=== PATIENT | male | born 1960 | race Caucasian/White ===

== ENCOUNTER 2018-05-25 04:06 | Inpatient (IN) ==
[2018-05-25] MEDS ORDERED: Bisacodyl 10 MG Supp RECTAL PRN (06:52)
[2018-05-25] MEDS ORDERED: niCARdipine Inj 25 MG in Sodium Chlor 0.9% Inj 240 ML IV.CONT PRN (06:55)
[2018-05-25] MEDS ORDERED: Magnesium Sulfate Inj 2 GM in Sodium Chlor 0.9% Inj 96 ML IV.SIG PRN (07:07)
[2018-05-25] MEDS ORDERED: Potassium Chloride Liq 20 MEQ/15 ML UDC PO PRN ×2 (07:07)
[2018-05-25] MEDS ORDERED: Potassium Chlor 20 mEq Premix 20 MEQ/100 ML PIGGYBACK IV.SIG PRN ×2 (07:07)
[2018-05-25] MEDS ORDERED: Potassium Phosphate 500 MG Soluble Tablet PO PRN ×2 (07:07)
[2018-05-25] MEDS ORDERED: Potassium Phosphate Inj 30 MMOL in Sodium Chlor 0.9% Inj 250 ML IV.SIG PRN (07:07)
[2018-05-25] MEDS ORDERED: Sodium Phosphate Inj 30 MMOL in Sodium Chlor 0.9% Inj 250 ML IV.SIG PRN (07:07)
[2018-05-25] MEDS ORDERED: Magnesium Sulfate Inj 4 GM in Sodium Chlor 0.9% Inj 92 ML IV.SIG PRN (07:07)
[2018-05-25] MEDS ORDERED: Magnesium Oxide 400 MG Tablet PO PRN (07:07)
[2018-05-25] MEDS ORDERED: Potassium Chlor 40 mEq Premix 40 MEQ/100 ML PIGGYBACK IV.SIG PRN ×2 (07:07)
--- NOTE | 2018-05-25 07:08 | P.HPCC ---
History of Present Illness Service: Critical care Primary Care Physician: No Primary Care Physician Chief Complaint: ICH, left sided weakness History of Present Illness: Patient is a 57-year-old male with past medical history significant for hypertension, chronic Eliquis use for DVT, who presented to [facility] with 3-day history of generalized weakness altered mental status and left -sided weakness. Patient is somnolent and slightly confused cannot give detailed history. Further workup in the [facility] ED included CT head which showed that patient had a 5.5 x 4.4 cm right frontal intraparenchymal hematoma with intraventricular extension into the right frontal horn. There was blood in the lateral third and fourth ventricle with mass-effect on the right frontal lobe, 5 mm midline shift to the left. Additional 9 x 10 mm intraparenchymal hematoma in the left posterior frontal cortex. Neurosurgery at [facility] was contacted and Dr. Ramesh accepted the patient. Patient was transferred to [facility] where I evaluated him. Lab work at [facility] showed PTT 69.5, PT 14.8, INR 1.31. Patient takes Eliquis for DVT On my evaluation patient is lying on the bed slightly somnolent. But wakes up easily, he is AOx2. He has 4 out of 5 power on the left upper and lower extremity, has left facial droop. Otherwise patient is oriented to person and time. Stat neurosurgery consult ordered and I reviewed the films with Dr. Ramesh. I have also ordered 2500 unit of K Centra to reverse apixaban (per patient last dose was yesterday afternoon which is approximately 18 hours ago). Follow coags. CT of the head follow-up at 8 AM. Patient is very critical, at risk of acute neuro decompensation. Further recommendation for any surgical intervention versus medical management based on repeat imaging - Diagnosis (1) Intracerebral hemorrhage (2) Intraventricular hemorrhage (3) Coagulopathy (4) Chronic anticoagulation (5) HTN (hypertension) (6) Chronic deep vein thrombosis (DVT) Inpatient Certification: I certify that the inpatient services were ordered in accordance with Medicare regulations governing the order. This includes certification that hospital inpatient services are reasonable and necessary and in the case of services not specified as inpatient-only under 42 CFR 419.22(n), that they are appropriately provided as inpatient services in accordance to with the 2-midnight benchmark under 43 CFR 412.3(e) Estimated Total Length of Stay (Days): 7 Plans for Post Hospital Care: Not yet determined Review of Systems unobtainable due to mental condition PMFSH - Medical / Surgical Hx Neg / Unobtainable Medical Problems Denied: Unable to Obtain Surgical History: Unable to Obtain - Tobacco History Smoking Status: Current every day smoker Tobacco Type: Cigarettes - Alcohol History How Often Do You Have a Drink Containing Alcohol: Unable to Obtain - Substance Use History Substance History: Unable to Obtain Medications and Allergies Active Medications: Active Medications Al Hydroxide/Mg Hydroxide (Milk Of Magnesia Liq) 30 ml PO Q12H PRN PRN Reason: Mild Constipation Albuterol (Duoneb Neb (Prn)) 1 ampul NEB Q2HR NEB PRN PRN Reason: WHEEZING Bisacodyl (Dulcolax Supp) 10 mg RECTAL DAILY PRN PRN Reason: SEVERE CONSITIPATION Chlorhexidine Gluconate (Chlorhexidine 2% Cloth) 3 pack TOPICAL DAILY@0400 PRN PRN Reason: Extra cloth needed Stop: 05/31/18 03:59 Chlorhexidine Gluconate (Chlorhexidine 2% Cloth) 3 pack TOPICAL DAILY@0400 MELISSA Stop: 05/31/18 03:59 Hydralazine HCl (Apresoline Inj) 20 mg IV.PUSH Q4H PRN PRN Reason: sbp>150 Sodium Chloride (Ns Inj) 1,000 mls @ 84 mls/hr IV.CONT .[id number] MELISSA Nicardipine HCl 25 mg/ Sodium (Chloride) 250 mls @ 50 mls/hr IV.CONT TITRATE PRN; Protocol PRN Reason: Per Protocol Prothrombin Complex Concent ( Human) 2,500 unit/Miscellaneous Medication mls @ 0 mls/hr IV.SIG ONCE ONE Stop: 05/25/18 08:01 Levetiracetam 500 mg/ Sodium (Chloride) 105 mls @ 400 mls/hr IV.SIG Q12H MELISSA Lactulose (Lactulose Liq) 30 ml PO DAILY PRN PRN Reason: SEVERE CONSITIPATION Pantoprazole Sodium (Protonix Inj) 40 mg IV.PUSH DAILY MELISSA Senna/Docusate Sodium (Jocelyn-Colace) 1 tab PO BID MELISSA Sennosides (Senokot) 17.2 mg PO Q12H PRN PRN Reason: Moderate Constipation Sodium Chloride (Ns Flush) 2 ml IV.FLUSH BID MELISSA Sodium Chloride (Ns Flush) 2 ml IV.FLUSH PRN PRN PRN Reason: FLUSH AFTER USING IV ACCESS Allergies Allergy/AdvReac Type Severity Reaction Status Date / Time No Known Allergies Allergy Verified 05/25/18 06:51 Home Medications Medication Instructions Recorded Confirmed Type apixaban [Eliquis] 1 tab PO BID 05/25/18 05/25/18 History hydroxychloroquine 200 mg PO DAILY 05/25/18 05/25/18 History pantoprazole 1 tab PO DAILY 05/25/18 05/25/18 History Results - Labs CBC & Chem 7: 05/25/18 08:36 05/25/18 08:36 Exam Vital signs: Intake & Output 05/24/18 05/25/18 05/25/18 18:59 06:59 18:59 Weight 87.2 kg Other: Weight On Admission 87.2 kg Narrative: GEN: 57-year-old male lying in bed, GCS 14. Appears critically ill HEENT: Extraocular movements are grossly intact. Pupils are reactive. Oral cavity is dry. NECK: Supple. No JVD LUNGS: Air entry equal bilaterally no wheezes or crackles HEART: S1 and S2 normal, no murmurs. Blood pressure 140/85 ABDOMEN: Soft. Nontender EXTREMITIES: No pedal edema. NEUROLOGIC: Patient is oriented to person and somewhat to place. Somnolent but wakes up easily. GCS 14. Left hemiparesis present left facial droop. 4 out of 5 power in the left upper and lower extremity. Normal right upper and lower extremity Septic Shock Reassessment Septic shock perfusion: reassessment completed Caprini VTE Risk Assessment Caprini VTE Risk Assessment: Moderate/High Risk (score >= 2) VTE Pharmacological Exception Reason: Intracranial lesions Caprini Risk Assessment Model: Point Value = 1 Point Value = 2 Point Value = 3 Point Value = 5 Age 41-60 Minor surgery BMI > 25 kg/m2 Swollen legs Varicose veins or History of unexplained or recurrent spontaneous Oral contraceptives or hormone replacement Sepsis (< 1 month) Serious lung disease, including pneumonia (< 1 month) Abnormal pulmonary function Acute myocardial infarction Congestive heart failure (< 1 month) History of inflammatory bowel disease Medical patient at bed rest Age 61-74 Arthroscopic surgery Major open surgery (> 45 min) Laparoscopic surgery (> 45 min) Malignancy Confined to bed (> 72 hours) Immobilizing plaster cast Central venous access Age >= 75 History of VTE Family history of VTE Factor V Leiden Prothrombin [id number] Lupus anticoagulant Anticardiolipin antibodies Elevated serum homocysteine Heparin-induced thrombocytopenia Other congenital or acquired thrombophilia Stroke (< 1 month) Elective arthroplasty Hip, pelvis, or leg fracture Acute spinal cord injury (< 1 month) Prophylaxis Regimen: Total Risk Factor Score Risk Level Prophylaxis Regimen 0-1 Low Early ambulation 2 Moderate Order ONE of the following: *Sequential Compression Device (SCD) *Heparin 5000 units SQ BID 3-4 Higher Order ONE of the following medications: *Heparin 5000 units SQ TID *Enoxaparin/Lovenox 40 mg SQ daily (WT < 150 kg, CrCl > 30 mL/min) *Enoxaparin/Lovenox 30 mg SQ daily (WT < 150 kg, CrCl > 10-29 mL/min) *Enoxaparin/Lovenox 30 mg SQ BID (WT < 150 kg, CrCl > 30 mL/min) AND/OR *Sequential Compression Device (SCD) 5 or more Highest Order ONE of the following medications: *Heparin 5000 units SQ TID (Preferred with Epidurals) *Enoxaparin/Lovenox 40 mg SQ daily (WT < 150 kg, CrCl > 30 mL/min) *Enoxaparin/Lovenox 30 mg SQ daily (WT < 150 kg, CrCl > 10-29 mL/min) *Enoxaparin/Lovenox 30 mg SQ BID (WT < 150 kg, CrCl > 30 mL/min) AND *Sequential Compression Device (SCD) Assessment and Plan - Problem List (1) Intracerebral hemorrhage Code(s): I61.9 - Nontraumatic intracerebral hemorrhage, unspecified Status: Acute (2) Intraventricular hemorrhage Code(s): I61.5 - Nontraumatic intracerebral hemorrhage, intraventricular Status: Acute (3) Coagulopathy Code(s): D68.9 - Coagulation defect, unspecified Status: Acute (4) Chronic anticoagulation Code(s): Z79.01 - auctioneer automobile (current) use of anticoagulants Status: Acute (5) HTN (hypertension) Code(s): I10 - Essential (primary) hypertension Status: Chronic (6) Chronic deep vein thrombosis (DVT) Code(s): I82.509 - Chronic embolism and thrombosis of unspecified deep veins of unspecified lower extremity Status: Chronic - Assessment and Plan Plan: NEURO: Large right frontal intraparenchymal hematoma with intraventricular extension Mass-effect on the right frontal lobe, 5 mm midline shift to the left. Encephalopathy -Stat K-centra 2500 units x1 -Follow-up CT of the head at 8 AM -Keep sodium more than 145, use 2% saline if needed -Avoid sedation -Keppra 500 mg IV every 12 for seizure prophylaxis -Discussed extensively with Dr. Ramesh -Further recommendations based on CT scan RESP: -DuoNeb every 2 hours as needed -Aggressive pulmonary toilet CV: History of hypertension -Normal saline IV fluids 84 ml per hour -Cardene infusion to keep blood pressure less than 140/90, IV hydralazine as needed GI: -N.p.o., IV Protonix : -Monitor renal function closely. ID: -No antibiotics at this time HEME: Chronic anticoagulation with apixaban History of DVT -Monitor CBC, coags, fibrinogen -K Centra 2500 units x1 stat -Follow-up coags at 12 PM ENDO: -Electrolyte replacement per protocol -Sliding scale insulin if needed PROPH: -Bilateral lower extremity SCDs/WILLIAN. Chemical DVT prophylaxis is contraindicated. IV Protonix LINES: -Utilize peripheral IVs, central line if needed CC time 78 min Patient is a very critical with large intraparenchymal hemorrhage and intraventricular extension. He is at acute risk of respiratory neuro decompensation. He may need endotracheal intubation and emergency surgical prevention. Continue close neuro monitoring Code Status: Full Discussed Condition With: Dr. Ramesh
[2018-05-25] MEDS: Prothrombin Complex Conc Inj 2,500 UNIT in Syringe/Bag 1 EACH IV.SIG ONE ×2 (07:30→08:21)
[2018-05-25 07:36] LABS: ABG Base Excess 1.2 mmol/L (-2-2); ABG PCO2 36 mmHg (38-42); ABG PO2 86 mmHg (61-120)
--- NOTE | 2018-05-25 08:11 | XR ---
EXAM DATE: 05/25/2018 8:09 AM EST AGE/SEX: 57 years / Male INDICATIONS: Short of breath. Evaluate respiratory disease. CLINICAL DATA: This is the patient's initial encounter. Patient reports that signs and symptoms have been present for 1 day and indicates a pain score of Nonresponsive. MEDICAL/SURGICAL HISTORY: Non-responsive. intracranial bleed Non-responsive. COMPARISON: No prior exams available for comparison. FINDINGS: Mild diffuse interstitial prominence. No focal pleural or parenchymal opacities. The cardiomediastin al contours are unremarkable. Osseous structures are intact. CONCLUSION: 1. Mild interstitial prominence of unknown chronicity given lack of prior exams. Differential consid erations include interstitial edema. Electronically signed by: Earnest Wilder MD Board Certified Radiologist 05/25/2018 8:10 AM EST
--- NOTE | 2018-05-25 08:17 | CT ---
EXAM DATE: 05/25/2018 8:09 AM EST AGE/SEX: 57 years / Male INDICATIONS: Intracerebral hemorrhage, transfer from [facility]. CLINICAL DATA: This is the patient's initial encounter. Patient reports that signs and symptoms have been present for 1 day and indicates a pain score of 0/10. MEDICAL/SURGICAL HISTORY: Hypertension. Deep venous thrombosis. None. RADIATION DOSE: 36.05 CTDI (mGy) COMPARISON: No prior exams available for comparison. TECHNIQUE: CT of the head without contrast. Using automated exposure control and adjustment of the mA and/or kV according to patient size, radiation dose was kept as low as reasonably achievable to ob tain optimal diagnostic quality images. DICOM format image data is available electronically for revi ew and comparison. FINDINGS: Cerebrum: There is a large right frontoparietal mid to high convexity intraparenchymal hemorrhage me asuring approximately 4.3 x 4.6 cm with surrounding vasogenic edema. Blood products extend to the lat eral ventricles bilaterally. There is approximately 4 mm right to left subfalcine shift. There is a s econd small 8 mm intraparenchymal hematoma in the left parietal high convexities. Minimal associated surrounding vasogenic edema. Ventricles are borderline in size. Castro-white matter differentiation is maintained. Basilar cisterns are intact with blood products noted. Posterior Fossa: The cerebellum and brainstem are intact. The 4th ventricle is midline. The cerebe llopontine angle is unremarkable. Extracranial: The visualized portion of the orbits is intact. Skull: The calvaria is intact. No evidence of skull fracture. CONCLUSION: 1. Large right frontoparietal mid thigh convexity intraparenchymal hematoma measuring 4.3 x 4.6 cm w ith blood products extending to the ventricles. 4 mm right to left subfalcine shift. Ventricles are b orderline in size. 2. 8 mm intraparenchymal hematoma in the left parietal high convexities with mild surrounding vasoge renny edema but no significant mass effect at this time. . . Electronically signed by: Earnest Wilder MD Board Certified Radiologist 05/25/2018 8:15 AM EST
[2018-05-25] MEDS: Sod Chloride 0.9% Inj 1,000 ML IV.CONT SCH ×2 (08:21→21:58)
[2018-05-25] MEDS: Senna/Docusate Sodium 8.6/50 MG Tablet PO SCH ×2 (08:25→23:39)
[2018-05-25] MEDS: Pantoprazole Inj 40 MG Vial IV.PUSH SCH (08:29)
[2018-05-25 08:53] LABS: Hematocrit 35.7 % (39.0-51.0); Hemoglobin 12.9 gm/dL (13.0-17.0); Mean Corpuscular Hemoglobin 32.3 pg (27.0-34.0); Mean Corpuscular Volume 89.5 fL (80.0-100.0); Mean Platelet Volume 7.4 fL (7.0-11.0); Platelet Count 177 th/mm3 (150-450); Red Blood Count 3.99 mil/mm3 (4.50-5.90); Red Cell Distribution Width 12.8 % (11.6-17.2); White Blood Count 5.9 th/mm3 (4.0-11.0)
[2018-05-25 08:57] LABS: Mean Corpuscular HGB Conc 36.1 % (32.0-36.0)
[2018-05-25 09:02] LABS: INR 1.1 Ratio; Prothrombin Time 10.8 sec (9.8-11.6)
[2018-05-25 09:15] LABS: Albumin 2.9 g/dL (3.4-5.0); Anion Gap 9 meq/L (5-15); Aspartate Aminotransferase 17 U/L (15-37); Blood Urea Nitrogen 16 mg/dL (7-18); Calcium 8.9 mg/dL (8.5-10.1); Carbon Dioxide 24.4 meq/L (21.0-32.0); Chloride 99 meq/L (98-107); Glomerular Filtration Rate 78 mL/min (>89); Glucose,Random 104 mg/dL (74-106); Potassium 4.1 meq/L (3.5-5.1); Sodium 132 meq/L (136-145)
[2018-05-25 09:16] LABS: Alanine Aminotransferase 21 U/L (12-78)
[2018-05-25 09:18] LABS: Alkaline Phosphatase 105 U/L (45-117); Total Protein 8.3 g/dL (6.4-8.2)
[2018-05-25] MEDS ORDERED: Sodium Chloride 23.4% Inj 188 MEQ in Sod Chloride 0.9% Inj 1,000 ML IV.CONT SCH (10:00)
[2018-05-25] MEDS: Sodium Chloride 23.4% Inj 188 MEQ in Sod Chloride 0.9% Inj 1,000 ML IV.CONT SCH (11:30)
--- NOTE | 2018-05-25 17:11 | MB ---
cc: Richard Ramesh MD DATE: 05/25/2018 Report of an initial comprehensive inpatient surgical intensive care and neurosurgical consultation. The patient was interviewed, examined, the documentation, laboratory evaluation, and the imaging were reviewed. CHIEF COMPLAINT: Intracerebral hemorrhage. HISTORY OF PRESENT ILLNESS: This is a 57-year-old white male who apparently presented to [facility] with a 3-day history of generalized weakness, confusion, and left-sided weakness. CT scan of the head done without contrast there revealed what appears to be a spontaneous right frontal intracerebral hemorrhage with intraventricular extension. There was no hydrocephalus. There was mild shift of the midline. There also was a small hemorrhage within the left posterior frontal lobe. Apparently, this patient is on Eliquis for a recurrent deep venous thrombosis. PAST MEDICAL HISTORY: Apparently remarkable for history of hypertension and recurrent deep venous thrombosis. PAST SURGICAL HISTORY: Unobtainable due to the patient's clinical condition. HOME MEDICATIONS: Not listed except for: 1. Hydroxychloroquine. 2. Pantoprazole. 3. Apixaban or Eliquis. ALLERGIES: HE HAS NO KNOWN DRUG ALLERGIES. SOCIAL HISTORY: Unobtainable due the patient's clinical condition. REVIEW OF SYSTEMS: Unobtainable due the patient's clinical condition. PHYSICAL EXAMINATION: VITAL SIGNS: His temperature is 98, his heart rate is 64. His respiratory rate is 17. His SPO2 was 99% on room air. His blood pressure is 142/90. NEUROLOGIC: Mental Status testing finds the patient to be somewhat lethargic but easily arousable. He opens his eyes. He follows commands. He is somewhat confused. His speech is fluent. Cranial nerve testing 2-12 are grossly intact with a right gaze preference. Visual karimi appeared to be full to confrontation. Extraocular movements were full without diplopia or nystagmus. Funduscopic examination was deferred due to small pupils. Motor examination was remarkable for what appeared to be some increased tone in the right upper and right lower extremity with a mild right hemiparesis. Sensory examination was intact to light touch and position. Deep tendon reflexes were 2+ in the left and 3+ on the right. There were no pathological reflexes noted. Cerebellar, gait, Romberg and tandem cannot be tested. HEENT: Head was normocephalic. External auditory canals were clear. There was no Paul sign, no raccoon eyes. No mastoid tenderness. There was no blood within external auditory canals or sign of CSF otorrhea or rhinorrhea. SPINE: Cervical spine evaluation revealed limited range of motion with some mild torticollis to the right. IMPRESSION: My impression is that the patient has suffered what appears to be a spontaneous intracerebral hemorrhage. In fact, he has multiple intracerebral hemorrhages with intraventricular hemorrhage without hydrocephalus. Neurologically, the patient has remained stable and remains responsive. RECOMMENDATIONS AND PLAN: At this point, certainly a conservative neurosurgical approach is warranted. Depending on results of workup as well as his clinical course, we will determine the appropriate further diagnostic and therapeutic approach. Neurosurgery will follow. I discussed the case with Dr. Collins, the veterinary manager, at length. In any case, thank you for allowing me to participate in the care of this patient. It also should be noted that we plan on pursuing serial imaging. MD NOAH Carter/mulugeta , 04:41 PM , 04:55 PM
[2018-05-25 20:11] LABS: INR 1.1 Ratio; Prothrombin Time 11.1 sec (9.8-11.6)
[2018-05-26] MEDS ORDERED: Chlorhexidine Gluconate 2% 1 Pack (2 Cloths) TOPICAL PRN (04:00)
--- NOTE | 2018-05-26 08:36 | P.PNCC ---
Subjective Subjective Remarks/Hospital Course: Patient is a 57-year-old male with past medical history significant for hypertension, chronic Eliquis use for DVT, who presented to [facility] with 3-day history of generalized weakness altered mental status and left -sided weakness. Patient is somnolent and slightly confused cannot give detailed history. Further workup in the [facility] ED included CT head which showed that patient had a 5.5 x 4.4 cm right frontal intraparenchymal hematoma with intraventricular extension into the right frontal horn. There was blood in the lateral third and fourth ventricle with mass-effect on the right frontal lobe, 5 mm midline shift to the left. Additional 9 x 10 mm intraparenchymal hematoma in the left posterior frontal cortex. Neurosurgery at [place] was contacted and Dr. Ramesh accepted the patient. Patient was transferred to [facility] where I evaluated him. Lab work at [facility] showed PTT 69.5, PT 14.8, INR 1.31. Patient takes Eliquis for DVT On my evaluation patient is lying on the bed slightly somnolent. But wakes up easily, he is AOx2. He has 4 out of 5 power on the left upper and lower extremity, has left facial droop. Otherwise patient is oriented to person and time. Stat neurosurgery consult ordered and I reviewed the films with Dr. Ramesh. I have also ordered 2500 unit of K Centra to reverse apixaban (per patient last dose was yesterday afternoon which is approximately 18 hours ago). Follow coags. CT of the head follow-up at 8 AM. Patient is very critical, at risk of acute neuro decompensation. Further recommendation for any surgical intervention versus medical management based on repeat imaging 05/26/18: Patient lying in bed opens eyes follows commands. Neuro exam remains unchanged. No surgical intervention is planned at this time. Will get PT OT and speech eval Objective Vital Signs / I&O: Vital Signs 05/25/18 10:07 05/25/18 10:30 05/25/18 11:00 Temperature Pulse Rate 69 65 61 Respiratory Rate 18 16 14 Blood Pressure 144/89 H 148/90 H 147/85 H Pulse Oximetry 98 98 100 05/25/18 11:30 05/25/18 12:00 05/25/18 12:30 Temperature 98.1 F Pulse Rate 63 66 72 Respiratory Rate 18 13 Blood Pressure 141/87 H 146/91 H 146/86 H Pulse Oximetry 100 100 100 05/25/18 13:00 05/25/18 13:30 05/25/18 14:00 Temperature Pulse Rate 65 62 65 Respiratory Rate 13 8 L 16 Blood Pressure 152/87 H 159/88 H 152/89 H Pulse Oximetry 100 99 100 05/25/18 14:30 05/25/18 15:00 05/25/18 15:30 Temperature Pulse Rate 66 69 63 Respiratory Rate 17 17 15 Blood Pressure 142/90 H 154/90 H 160/94 H Pulse Oximetry 99 96 100 05/25/18 16:00 05/25/18 16:30 05/25/18 17:00 Temperature 98.7 F Pulse Rate 75 68 69 Respiratory Rate 14 20 17 Blood Pressure 144/97 H 155/87 H 150/90 H Pulse Oximetry 100 100 100 05/25/18 17:30 05/25/18 18:00 05/25/18 18:30 Temperature Pulse Rate 61 62 67 Respiratory Rate 14 15 18 Blood Pressure 152/83 H 144/85 H 149/89 H Pulse Oximetry 100 100 100 05/25/18 19:00 05/25/18 19:30 05/25/18 20:00 Temperature 98.0 F Pulse Rate 72 66 67 Respiratory Rate 18 19 18 Blood Pressure 154/85 H 153/88 H 157/84 H Pulse Oximetry 100 100 100 05/25/18 20:30 05/25/18 21:00 05/25/18 21:08 Temperature Pulse Rate 67 62 59 L Respiratory Rate 22 16 16 Blood Pressure 166/87 H 154/87 H Pulse Oximetry 100 100 100 05/25/18 22:00 05/25/18 23:00 05/25/18 23:02 Temperature Pulse Rate 64 64 65 Respiratory Rate 23 15 16 Blood Pressure 157/90 H 146/109 H 154/105 H Pulse Oximetry 100 100 100 05/25/18 23:24 05/26/18 00:00 05/26/18 01:00 Temperature 98.2 F Pulse Rate 66 58 L 63 Respiratory Rate 14 14 14 Blood Pressure 144/77 H 153/87 H 154/84 H Pulse Oximetry 100 100 100 05/26/18 02:00 05/26/18 03:00 05/26/18 04:00 Temperature 98.2 F Pulse Rate 63 57 L 67 Respiratory Rate 18 21 15 Blood Pressure 167/91 H 141/71 H 163/92 H Pulse Oximetry 100 100 100 05/26/18 05:00 05/26/18 06:00 05/26/18 06:49 Temperature Pulse Rate 61 57 L 71 Respiratory Rate 13 15 20 Blood Pressure 138/66 163/95 H 144/85 H Pulse Oximetry 100 100 99 05/26/18 07:00 Temperature Pulse Rate 64 Respiratory Rate 19 Blood Pressure 168/91 H Pulse Oximetry 100 Intake & Output 05/25/18 05/26/18 05/26/18 18:59 06:59 18:59 Intake Total 105 / 105 1105 / 1105 Output Total 1275 / 1275 1000 / 1000 Balance -1170 / -1170 105 / 105 Weight 83.9 kg Intake: IV 105 / 105 1105 / 1105 NS Inj 1,000 ML @ 84 mls/hr IV. 1000 / 1000 CONT .[id number] MELISSA Rx#:[id number] Keppra Inj 500 MG In NS Inj 100 105 / 105 105 / 105 ML @ 400 mls/hr IV.SIG Q12H MELISSA Rx#:[id number] Oral 0 / 0 Output: Urine 1275 / 1275 1000 / 1000 Other: # Bowel Movements 0 Result Diagrams: 05/25/18 08:36 05/26/18 01:09 Objective Remarks: GEN: 57-year-old male lying in bed, GCS 14. Appears critical HEENT: Extraocular movements are grossly intact. Pupils are reactive. Oral cavity is dry. NECK: Supple. No JVD LUNGS: Air entry equal bilaterally no wheezes or crackles HEART: S1 and S2 normal, no murmurs. Blood pressure 150/85 ABDOMEN: Soft. Nontender EXTREMITIES: No pedal edema. NEUROLOGIC: Patient is oriented to person and place. Somnolent but wakes up easily. GCS 14. Left hemiparesis present left facial droop. 4 out of 5 power in the left upper and lower extremity. Normal right upper and lower extremity Assessment and Plan - Problem List (1) Intracerebral hemorrhage Code(s): I61.9 - Nontraumatic intracerebral hemorrhage, unspecified Status: Acute (2) Intraventricular hemorrhage Code(s): I61.5 - Nontraumatic intracerebral hemorrhage, intraventricular Status: Acute (3) Coagulopathy Code(s): D68.9 - Coagulation defect, unspecified Status: Acute (4) Chronic anticoagulation Code(s): Z79.01 - FDC (current) use of anticoagulants Status: Acute (5) HTN (hypertension) Code(s): I10 - Essential (primary) hypertension Status: Chronic (6) Chronic deep vein thrombosis (DVT) Code(s): I82.509 - Chronic embolism and thrombosis of unspecified deep veins of unspecified lower extremity Status: Chronic - Assessment and Plan Plan: NEURO: Large right frontal intraparenchymal hematoma with intraventricular extension Mass-effect on the right frontal lobe, 5 mm midline shift to the left. Encephalopathy -S/p K-centra 2500 units x1 -Follow-up CT of the head 05/25, remained stable -Keep sodium more than 145, use 2% saline -Avoid sedation -Keppra 500 mg IV every 12 for seizure prophylaxis -Discussed with Dr. Ramesh-no surgical interventions are planned at this time -PT/OT/speech eval -Out of bed RESP: -DuoNeb every 2 hours as needed -Aggressive pulmonary toilet CV: History of hypertension -Normal saline IV fluids 84 ml per hour -Cardene infusion to keep blood pressure less than 140/90, IV hydralazine as needed -Start amlodipine 5 mg daily if cleared by speech GI: -N.p.o., IV Protonix -Speech consult for swallow eval : -Monitor renal function closely. ID: -No antibiotics at this time HEME: Chronic anticoagulation with apixaban History of DVT -Monitor CBC, coags, fibrinogen -K Centra 2500 units x1 stat -Follow-up coags at 12 PM ENDO: -Electrolyte replacement per protocol -Sliding scale insulin if needed PROPH: -Bilateral lower extremity SCDs/WILLIAN. Chemical DVT prophylaxis is contraindicated. IV Protonix LINES: -Utilize peripheral IVs, central line if needed CC time 35 min Patient is a very critical with large intraparenchymal hemorrhage and intraventricular extension. He is at acute risk of respiratory neuro decompensation. He may need endotracheal intubation and emergency surgical intervention/EVD. Continue close neuro monitoring Code Status: Full
[2018-05-26] MEDS: Pantoprazole Inj 40 MG Vial IV.PUSH SCH (09:33)
[2018-05-26] MEDS: hydrALAZINE HCl Inj 20 MG/ML Vial IV.PUSH PRN ×2 (09:33→18:39)
[2018-05-26] MEDS: Sod Chloride 0.9% Inj 1,000 ML IV.CONT SCH ×2 (09:34→18:15)
[2018-05-26] MEDS: Senna/Docusate Sodium 8.6/50 MG Tablet PO SCH ×2 (09:34→22:29)
--- NOTE | 2018-05-26 10:09 | P.PNNS ---
Subjective Interval history: no significant neurological changes overnight <Karine Valero - Last Filed: 05/26/18 11:30> Physical Exam Vital signs: Vital Signs 05/25/18 10:07 05/25/18 10:30 05/25/18 11:00 Temperature Pulse Rate 69 65 61 Respiratory Rate 18 16 14 Blood Pressure 144/89 H 148/90 H 147/85 H Pulse Oximetry 98 98 100 05/25/18 11:30 05/25/18 12:00 05/25/18 12:30 Temperature 98.1 F Pulse Rate 63 66 72 Respiratory Rate 18 13 Blood Pressure 141/87 H 146/91 H 146/86 H Pulse Oximetry 100 100 100 05/25/18 13:00 05/25/18 13:30 05/25/18 14:00 Temperature Pulse Rate 65 62 65 Respiratory Rate 13 8 L 16 Blood Pressure 152/87 H 159/88 H 152/89 H Pulse Oximetry 100 99 100 05/25/18 14:30 05/25/18 15:00 05/25/18 15:30 Temperature Pulse Rate 66 69 63 Respiratory Rate 17 17 15 Blood Pressure 142/90 H 154/90 H 160/94 H Pulse Oximetry 99 96 100 05/25/18 16:00 05/25/18 16:30 05/25/18 17:00 Temperature 98.7 F Pulse Rate 75 68 69 Respiratory Rate 14 20 17 Blood Pressure 144/97 H 155/87 H 150/90 H Pulse Oximetry 100 100 100 05/25/18 17:30 05/25/18 18:00 05/25/18 18:30 Temperature Pulse Rate 61 62 67 Respiratory Rate 14 15 18 Blood Pressure 152/83 H 144/85 H 149/89 H Pulse Oximetry 100 100 100 05/25/18 19:00 05/25/18 19:30 05/25/18 20:00 Temperature 98.0 F Pulse Rate 72 66 67 Respiratory Rate 18 19 18 Blood Pressure 154/85 H 153/88 H 157/84 H Pulse Oximetry 100 100 100 05/25/18 20:30 05/25/18 21:00 05/25/18 21:08 Temperature Pulse Rate 67 62 59 L Respiratory Rate 22 16 16 Blood Pressure 166/87 H 154/87 H Pulse Oximetry 100 100 100 05/25/18 22:00 05/25/18 23:00 05/25/18 23:02 Temperature Pulse Rate 64 64 65 Respiratory Rate 23 15 16 Blood Pressure 157/90 H 146/109 H 154/105 H Pulse Oximetry 100 100 100 05/25/18 23:24 05/26/18 00:00 05/26/18 01:00 Temperature 98.2 F Pulse Rate 66 58 L 63 Respiratory Rate 14 14 14 Blood Pressure 144/77 H 153/87 H 154/84 H Pulse Oximetry 100 100 100 05/26/18 02:00 05/26/18 03:00 05/26/18 04:00 Temperature 98.2 F Pulse Rate 63 57 L 67 Respiratory Rate 18 21 15 Blood Pressure 167/91 H 141/71 H 163/92 H Pulse Oximetry 100 100 100 05/26/18 05:00 05/26/18 06:00 05/26/18 06:49 Temperature Pulse Rate 61 57 L 71 Respiratory Rate 13 15 20 Blood Pressure 138/66 163/95 H 144/85 H Pulse Oximetry 100 100 99 05/26/18 07:00 Temperature Pulse Rate 64 Respiratory Rate 19 Blood Pressure 168/91 H Pulse Oximetry 100 Intake & Output 05/25/18 05/26/18 05/26/18 18:59 06:59 18:59 Intake Total 105 / 105 1105 / 1105 1000 / 1000 Output Total 1275 / 1275 1000 / 1000 Balance -1170 / -1170 105 / 105 1000 / 1000 Weight 83.9 kg Intake: IV 105 / 105 1105 / 1105 1000 / 1000 NS Inj 1,000 ML @ 84 mls/hr IV. 1000 / 1000 1000 / 1000 CONT .[id number] MELISSA Rx#:[id number] Keppra Inj 500 MG In NS Inj 100 105 / 105 105 / 105 ML @ 400 mls/hr IV.SIG Q12H MELISSA Rx#:[id number] Oral 0 / 0 Output: Urine 1275 / 1275 1000 / 1000 Other: # Bowel Movements 0 Narrative: mildly lethargic but arousable. He opens his eyes. He follows commands. he is oriented to name, year pupils equal Motor: moves all four extremities to command with left hemiparesis <Karine Valero - Last Filed: 05/26/18 11:30> Vital signs: Vital Signs 05/25/18 18:00 05/25/18 18:30 05/25/18 19:00 Temperature Pulse Rate 62 67 72 Respiratory Rate 15 18 18 Blood Pressure 144/85 H 149/89 H 154/85 H Pulse Oximetry 100 100 100 05/25/18 19:30 05/25/18 20:00 05/25/18 20:30 Temperature 98.0 F Pulse Rate 66 67 67 Respiratory Rate 19 18 22 Blood Pressure 153/88 H 157/84 H 166/87 H Pulse Oximetry 100 100 100 05/25/18 21:00 05/25/18 21:08 05/25/18 22:00 Temperature Pulse Rate 62 59 L 64 Respiratory Rate 16 16 23 Blood Pressure 154/87 H 157/90 H Pulse Oximetry 100 100 100 05/25/18 23:00 05/25/18 23:02 05/25/18 23:24 Temperature Pulse Rate 64 65 66 Respiratory Rate 15 16 14 Blood Pressure 146/109 H 154/105 H 144/77 H Pulse Oximetry 100 100 100 05/26/18 00:00 05/26/18 01:00 05/26/18 02:00 Temperature 98.2 F Pulse Rate 58 L 63 63 Respiratory Rate 14 14 18 Blood Pressure 153/87 H 154/84 H 167/91 H Pulse Oximetry 100 100 100 05/26/18 03:00 05/26/18 04:00 05/26/18 05:00 Temperature 98.2 F Pulse Rate 57 L 67 61 Respiratory Rate 21 15 13 Blood Pressure 141/71 H 163/92 H 138/66 Pulse Oximetry 100 100 100 05/26/18 06:00 05/26/18 06:49 05/26/18 07:00 Temperature Pulse Rate 57 L 71 64 Respiratory Rate 15 20 19 Blood Pressure 163/95 H 144/85 H 168/91 H Pulse Oximetry 100 99 100 05/26/18 08:00 05/26/18 09:00 05/26/18 10:00 Temperature 98.5 F Pulse Rate 55 L 63 85 Respiratory Rate 15 17 11 L Blood Pressure 160/86 H 160/94 H 146/74 H Pulse Oximetry 100 100 83 L 05/26/18 11:00 05/26/18 12:00 05/26/18 12:01 Temperature Pulse Rate 77 68 81 Respiratory Rate 20 16 Blood Pressure 156/86 H 163/90 H Pulse Oximetry 100 98 05/26/18 13:01 05/26/18 14:00 05/26/18 15:00 Temperature Pulse Rate 76 69 70 Respiratory Rate 13 17 17 Blood Pressure 164/96 H 156/86 H 152/88 H Pulse Oximetry 99 96 99 05/26/18 16:00 Temperature 99.1 F Pulse Rate 69 Respiratory Rate 23 Blood Pressure 159/84 H Pulse Oximetry 100 Intake & Output 05/25/18 05/26/18 05/26/18 18:59 06:59 18:59 Intake Total 255 / 255 1105 / 1105 1105 / 1105 Output Total 1275 / 1275 1000 / 1000 Balance -1020 / -1020 105 / 105 1105 / 1105 Weight 83.9 kg Intake: IV 255 / 255 1105 / 1105 1105 / 1105 NS Inj 1,000 ML @ 84 mls/hr IV. 1000 / 1000 1000 / 1000 CONT .[id number] MELISSA Rx#:[id number] Keppra Inj 500 MG In NS Inj 100 105 / 105 105 / 105 105 / 105 ML @ 400 mls/hr IV.SIG Q12H MELISSA Rx#:[id number] Oral 0 / 0 Output: Urine 1275 / 1275 1000 / 1000 Other: # Bowel Movements 0 <Richard Ramesh - Last Filed: 05/26/18 17:48> Assessment and Plan - Plan 57 y/o male spontaneous intracerebral hemorrhage, multiple intracerebral hemorrhages with intraventricular hemorrhage without hydrocephalus RECOMMENDATIONS AND PLAN: At this point, certainly a conservative neurosurgical approach is warranted. Depending on results of workup as well as his clinical course, we will determine the appropriate further diagnostic and therapeutic approach. Neurosurgery will follow. I discussed the case with Dr. Collins, the brake repair supervisor, at length. In any case, thank you for allowing me to participate in the care of this patient. It also should be noted that we plan on pursuing serial imaging. 05/26/2018 neurological exam relatively stable, he is mildly lethargic but follows commands and oriented x 2 continue with close neurological checks in ISC continue PT, OT, ST continue critical care management will follow <Karine Valero - Last Filed: 05/26/18 11:30> - Attending Attestation May 26, 2018 I personally interviewed and examined the patient. I reviewed the documentation , laboratory evaluation, and the imaging. I discussed case with the neurosurgery team and we formulated a plan which is as described above. The patient has remained clinically and neurologically stable. Certainly a continued conservative neurosurgical approach is warranted. I discussed this all with the patient's over the phone and she understands and is agreeable. He certainly will require post stroke rehabilitation probably in an inpatient setting. Neurosurgery will follow. <Richard Ramesh - Last Filed: 05/26/18 17:48>
[2018-05-26] MEDS: Sodium Chloride 23.4% Inj 188 MEQ in Sod Chloride 0.9% Inj 1,000 ML IV.CONT SCH ×2 (18:14→22:29)
[2018-05-26] MEDS ORDERED: Gadobutrol PF 10 MMOL/10 ML Vial (for RAD) IV.SIG ONE (20:58)
--- NOTE | 2018-05-26 21:10 | MR ---
EXAM DATE: 05/26/2018 9:01 PM EST AGE/SEX: 57 years / Male INDICATIONS: Hematoma. Stroke. CLINICAL DATA: This is the patient's initial encounter. Patient reports that signs and symptoms have been present for 2 days and indicates a pain score of 0/10. MEDICAL/SURGICAL HISTORY: . HTN, DVT, GERD, Lupus None. COMPARISON: [facility] – [place], CT HEAD W/O CONTRAST, 05/25/2018. . TECHNIQUE: Multiplanar, multisequence examination of the brain was performed without and with 8 ml Ga davist (gadobutrol) contrast as a single exam dose. FINDINGS: Cerebrum: Redemonstration of 5.2 cm right frontoparietal parenchymal hematoma with prominent surroun ding vasogenic edema. Blood products extend to the ventricles. Effacement of the anterior horn of the right lateral ventricle with mass effect and right to left subfalcine shift measuring approximately 4 mm. There is no definite underlying mass or abnormal enhancement on postcontrast images. Second sma ll 8 mm intraparenchymal hematoma in the left parietal high convexities also again noted with minimal associated vasogenic edema. Ventricles are stable in size. The ventricles are normal for age. White Matter: Otherwise, No significant signal abnormalities are seen in the white matter. Posterior Fossa: The cerebellum and brainstem are intact. The 4th ventricle is midline. The cerebel lopontine angle is unremarkable. The cerebellar tonsils are normal in position. Diffusion Imaging: Otherwise, no focal areas of restricted diffusion are seen. No evidence of acute infarction. Extracranial: The visualized portions of the orbits and paranasal sinuses are unremarkable. CONCLUSION: 1. Redemonstration of a large right frontoparietal mid to high convexity intraparenchymal hematoma m easuring up to 5.2 cm with prominent surrounding vasogenic edema resulting in 4 mm right to left subf alcine shift. 2. Blood products extend to the ventricles with stable borderline ventricle size. 3. Redemonstration of 8 mm intraparenchymal hematoma in the left parietal high convexities without s ignificant mass effect at this time. 4. No definitive abnormal enhancing mass is demonstrated. Extent of hemorrhage and associated abnorm ality can obscure a more subtle mass. Electronically signed by: Earnest Wilder MD Board Certified Radiologist 05/26/2018 9:09 PM EST
--- NOTE | 2018-05-26 21:53 | CT ---
EXAM DATE: 05/26/2018 9:45 PM EST AGE/SEX: 57 years / Male INDICATIONS: Intracerebral hemorrhages. CLINICAL DATA: This is the patient's initial encounter. Patient reports that signs and symptoms have been present for 2 days and indicates a pain score of 4/10. MEDICAL/SURGICAL HISTORY: Hypertension. Deep venous thrombosis. Lupus. None. RADIATION DOSE: 27.89 CTDI (mGy) ; Combined studies [place] [facility] [place] W/O [place], 05/26/2018.. . TECHNIQUE: Volumetric scanning was performed using a multi-row detector CT scanner during bolus infu jodie of 75 ml Omnipaque 350 (iohexol) nonionic water-soluble contrast as a cumulative dose for multi ple exams. The data was post processed with a variety of visualization algorithms including full vo lume maximum intensity projection, multi-planar sliding thin slab reformation, curved planar reformat ion, and surface rendering techniques. Using automated exposure control and adjustment of the mA and /or kV according to patient size, radiation dose was kept as low as reasonably achievable to obtain o ptimal diagnostic quality images. DICOM format image data is available electronically for review and comparison. FINDINGS: There is excellent visualization of the major intracranial arteries out to the second-order branch ve ssels. Persistent circulation is noted on the right. There is no evidence for aneurysm, vessel truncation or stenosis, and no evidence for vascular malformation. See the MRI of the brain for discu ssion of the brain parenchyma and ventricular structures. CONCLUSION: 1. See the MRI of the brain reported separately. 2. Unremarkable CTA. . . Electronically signed by: Miles Park MD Board Certified Radiologist 05/26/2018 9:51 PM EST
--- NOTE | 2018-05-26 21:55 | CT ---
EXAM DATE: 05/26/2018 9:47 PM EST AGE/SEX: 57 years / Male INDICATIONS: Intracerebral hemorrhages. CLINICAL DATA: This is the patient's initial encounter. Patient reports that signs and symptoms have been present for 1 day and indicates a pain score of 4/10. MEDICAL/SURGICAL HISTORY: Hypertension. Deep venous thrombosis. Lupus. None. RADIATION DOSE: 27.89 CTDI (mGy) ; Combined studies COMPARISON: No prior exams available for comparison. TECHNIQUE: Volumetric scanning was performed using a multirow detector CT scanner during bolus infus ion of 75 ml Omnipaque 350 (iohexol) nonionic water-soluble contrast as a cumulative dose for multip le exams. The data was postprocessed with a variety of visualization algorithms including full-volu me maximum intensity projection, multiplanar sliding thin-slab reformation, curved-planar reformation , and surface-rendering techniques. Using automated exposure control and adjustment of the mA and/or kV according to patient size, radiation dose was kept as low as reasonably achievable to obtain opti mal diagnostic quality images. DICOM format image data is available electronically for review and co mparison. FINDINGS: Aortic Arch: There is a four-vessel origin of the great vessels from the aorta. The left vertebral a rtery arises directly off the arch. No evidence of ostial narrowing Right Carotid: The common carotid artery is intact. The carotid bulb has a normal configuration wit hout ulceration or narrowing. The internal carotid artery lumen is smooth without stenosis. The ext ernal carotid artery is intact. Left Carotid: The common carotid artery is intact. The carotid bulb has a normal configuration with out ulceration or narrowing. The internal carotid artery lumen is smooth without stenosis. The exte rnal carotid artery is intact. Vertebrals: The vertebral arteries have a symmetric diameter. No stenotic lesions are seen. Percent stenosis is calculated using the diameter of the stenotic region over the diameter of the nor mal distal internal carotid artery. CONCLUSION: 1. Patent carotid arteries and vertebral arteries. Electronically signed by: Miles Park MD Board Certified Radiologist 05/26/2018 9:53 PM EST
[2018-05-27] MEDS: Sod Chloride 0.9% Inj 1,000 ML IV.CONT SCH ×4 (00:56→20:06)
[2018-05-27] MEDS: hydrALAZINE HCl Inj 20 MG/ML Vial IV.PUSH PRN (01:07)
[2018-05-27] MEDS: Chlorhexidine Gluconate 2% 1 Pack (2 Cloths) TOPICAL SCH (05:17)
[2018-05-27 06:56] LABS: Baso % (Auto) 0.3 % (0.0-2.0); Eos % (Auto) 0.2 % (0.0-4.0); Hematocrit 37.5 % (39.0-51.0); Hemoglobin 13.3 gm/dL (13.0-17.0); Lymph # (Auto) 0.5 th/mm3 (1.0-4.8); Lymph % (Auto) 6.7 % (9.0-44.0); Mean Corpuscular HGB Conc 35.4 % (32.0-36.0); Mean Corpuscular Hemoglobin 32.5 pg (27.0-34.0); Mean Corpuscular Volume 91.7 fL (80.0-100.0); Mean Platelet Volume 7.5 fL (7.0-11.0); Mono # (Auto) 0.8 th/mm3 (0.0-0.9); Mono % (Auto) 10.9 % (0.0-8.0); Neut # (Auto) 5.9 th/mm3 (1.8-7.7); Neut % (Auto) 81.9 % (16.0-70.0); Platelet Count 141 th/mm3 (150-450); Red Blood Count 4.09 mil/mm3 (4.50-5.90); White Blood Count 7.2 th/mm3 (4.0-11.0)
[2018-05-27 07:15] LABS: Calcium 8.7 mg/dL (8.5-10.1); Carbon Dioxide 24.1 meq/L (21.0-32.0); Potassium 3.6 meq/L (3.5-5.1)
--- NOTE | 2018-05-27 08:05 | P.PNCC ---
Subjective Subjective Remarks/Hospital Course: Patient is a 57-year-old male with past medical history significant for hypertension, chronic Eliquis use for DVT, who presented to [facility] with 3-day history of generalized weakness altered mental status and left -sided weakness. Patient is somnolent and slightly confused cannot give detailed history. Further workup in the [place] [facility] ED included CT head which showed that patient had a 5.5 x 4.4 cm right frontal intraparenchymal hematoma with intraventricular extension into the right frontal horn. There was blood in the lateral third and fourth ventricle with mass-effect on the right frontal lobe, 5 mm midline shift to the left. Additional 9 x 10 mm intraparenchymal hematoma in the left posterior frontal cortex. Neurosurgery at [place] was contacted and Dr. Ramesh accepted the patient. Patient was transferred to [facility] where I evaluated him. Lab work at [facility] showed PTT 69.5, PT 14.8, INR 1.31. Patient takes Eliquis for DVT On my evaluation patient is lying on the bed slightly somnolent. But wakes up easily, he is AOx2. He has 4 out of 5 power on the left upper and lower extremity, has left facial droop. Otherwise patient is oriented to person and time. Stat neurosurgery consult ordered and I reviewed the films with Dr. Ramesh. I have also ordered 2500 unit of K Centra to reverse apixaban (per patient last dose was yesterday afternoon which is approximately 18 hours ago). Follow coags. CT of the head follow-up at 8 AM. Patient is very critical, at risk of acute neuro decompensation. Further recommendation for any surgical intervention versus medical management based on repeat imaging 05/26/18: Patient lying in bed opens eyes follows commands. Neuro exam remains unchanged. No surgical intervention is planned at this time. Will get PT OT and speech eval 05/27/18: Overnight nurse reported some mental status changes including increased somnolence and confusion. Currently on my exam he is back to his baseline. Persistent left hemiparesis with some expressive aphasia, however oriented to person and somewhat to place. Sodium still at 138 will target sodium closer to 150 start 3% saline. MRI brain yesterday shows redemonstration of a large right frontoparietal intraparenchymal hematoma measuring up to 5.2 cm with prominent surrounding vasogenic edema resulting in 4 mm right to left subfalcine shift. Stable intraventricular blood. Redemonstration of 8 mm intraparenchymal hematoma in the left parietal high convexities without significant mass effect at this time. Objective Vital Signs / I&O: Vital Signs 05/26/18 08:00 05/26/18 09:00 05/26/18 10:00 Temperature 98.5 F Pulse Rate 55 L 63 85 Respiratory Rate 15 17 11 L Blood Pressure 160/86 H 160/94 H 146/74 H Pulse Oximetry 100 100 83 L 05/26/18 11:00 05/26/18 12:00 05/26/18 12:01 Temperature Pulse Rate 77 68 81 Respiratory Rate 20 16 Blood Pressure 156/86 H 163/90 H Pulse Oximetry 100 98 05/26/18 13:01 05/26/18 14:00 05/26/18 15:00 Temperature Pulse Rate 76 88 70 Respiratory Rate 13 17 17 Blood Pressure 164/96 H 156/86 H 152/88 H Pulse Oximetry 99 96 99 05/26/18 16:00 05/26/18 17:00 05/26/18 18:00 Temperature 99.1 F Pulse Rate 90 79 89 Respiratory Rate 23 25 H 23 Blood Pressure 159/84 H 157/94 H 167/93 H Pulse Oximetry 100 96 100 05/26/18 19:00 05/26/18 20:00 05/26/18 20:35 Temperature 98.5 F Pulse Rate 103 H 98 H Respiratory Rate 26 H 21 Blood Pressure 157/72 H 162/95 H Pulse Oximetry 98 93 L 92 L 05/26/18 21:24 05/26/18 21:32 05/26/18 22:00 Temperature Pulse Rate 107 H 88 Respiratory Rate 16 20 Blood Pressure 155/85 H 156/85 H Pulse Oximetry 91 L 05/26/18 23:00 05/27/18 00:00 05/27/18 01:00 Temperature 99.2 F Pulse Rate 88 101 H 103 H Respiratory Rate 26 H 20 25 H Blood Pressure 161/85 H 162/83 H 152/81 H Pulse Oximetry 92 L 95 87 L 05/27/18 02:00 05/27/18 03:00 05/27/18 04:00 Temperature 99.9 F H Pulse Rate 123 H 110 H 108 H Respiratory Rate 25 H 18 30 H Blood Pressure 141/74 H 148/80 H 148/85 H Pulse Oximetry 91 L 92 L 91 L 05/27/18 05:00 05/27/18 06:00 Temperature Pulse Rate 103 H 95 H Respiratory Rate 21 36 H Blood Pressure 146/89 H 152/82 H Pulse Oximetry 93 L 93 L Intake & Output 05/26/18 05/27/18 05/27/18 18:59 06:59 18:59 Intake Total 1105 / 1105 1252 / 1252 Output Total 450 / 450 450 / 450 Balance 655 / 655 802 / 802 Weight 84 kg Intake: IV 1105 / 1105 1252 / 1252 NS Inj 1,000 ML @ 84 mls/hr IV. 1000 / 1000 100 / 100 CONT .[id number] MELISSA Rx#:[id number] Sodium Chloride 23.4% Inj 188 1047 / 1047 MEQ In NS Inj 1,000 ML @ 30 mls /hr IV.CONT .Q24H MELISSA Rx#: [id number] Keppra Inj 500 MG In NS Inj 100 105 / 105 105 / 105 ML @ 400 mls/hr IV.SIG Q12H MELISSA Rx#:[id number] Output: Urine 450 / 450 Urine Amount (Catheter) 450 / 450 Condom 450 / 450 Other: # Voids 3 # Incontinent Voids 2 3 Result Diagrams: 05/27/18 05:33 05/27/18 05:33 Objective Remarks: GEN: 57-year-old male lying in bed, GCS 14. Appears ill HEENT: Extraocular movements are grossly intact. Pupils are reactive. Oral cavity is dry. NECK: Supple. No JVD LUNGS: Air entry equal bilaterally no wheezes or crackles HEART: S1 and S2 normal, no murmurs. Blood pressure at goal ABDOMEN: Soft. Nontender EXTREMITIES: No pedal edema. NEUROLOGIC: Patient is oriented to person and intermittently to place. Somnolent but wakes up easily. GCS 14. Left hemiparesis present left facial droop. 4 out of 5 power in the left upper and lower extremity. Normal right upper and lower extremity Assessment and Plan - Problem List (1) Intracerebral hemorrhage Code(s): I61.9 - Nontraumatic intracerebral hemorrhage, unspecified Status: Acute (2) Intraventricular hemorrhage Code(s): I61.5 - Nontraumatic intracerebral hemorrhage, intraventricular Status: Acute (3) Coagulopathy Code(s): D68.9 - Coagulation defect, unspecified Status: Acute (4) Chronic anticoagulation Code(s): Z79.01 - terminal carman (current) use of anticoagulants Status: Acute (5) HTN (hypertension) Code(s): I10 - Essential (primary) hypertension Status: Chronic (6) Chronic deep vein thrombosis (DVT) Code(s): I82.509 - Chronic embolism and thrombosis of unspecified deep veins of unspecified lower extremity Status: Chronic - Assessment and Plan Plan: NEURO: Large right frontal intraparenchymal hematoma with intraventricular extension Mass-effect on the right frontal lobe, 5 mm midline shift to the left. Encephalopathy -S/p K-centra 2500 units x1 -Follow-up CT of the head 05/25, remained stable, MRI brain 05/27/2018 remains stable -Overnight slight clinical deterioration now back to baseline. -Keep sodium more than 150, start 3% saline at 40 mL/h. Place central line -Avoid sedation. Keppra 500 mg IV every 12 for seizure prophylaxis -If clinical deterioration plan for EVD -PT/OT/speech eval -Out of bed RESP: -DuoNeb every 2 hours as needed -Aggressive pulmonary toilet CV: History of hypertension -Normal saline IV fluids 84 ml per hour. DC 2% saline -Start 3% saline at 40 mL/h -Cardene infusion to keep blood pressure less than 140/90, IV hydralazine as needed -Start amlodipine 5 mg daily if cleared by speech GI: -N.p.o for possible surgical intervention., IV Protonix -Speech pathology following : -Monitor renal function closely. ID: -No antibiotics at this time HEME: Chronic anticoagulation with apixaban History of DVT -Monitor CBC, coags, fibrinogen -K Centra 2500 units x1 stat -Follow-up coags at 12 PM -Check venous scan LE ENDO: -Electrolyte replacement per protocol -Sliding scale insulin if needed PROPH: -Bilateral lower extremity SCDs/WILLIAN. Chemical DVT prophylaxis is contraindicated. IV Protonix LINES: -Utilize peripheral IVs, central line if needed CC time 35 min Patient is a very critical with large intraparenchymal hemorrhage and intraventricular extension. He is at acute risk of respiratory neuro decompensation. He may need endotracheal intubation and emergency surgical intervention/EVD. Continue close neuro monitoring
--- NOTE | 2018-05-27 09:13 | P.PCN ---
Date of procedure: 05/27/18 Pre-op diagnosis: Need for central access for hypertonic saline Post-op diagnosis: same Procedure: US guided central line Central line checklist completed, timeout completed. I wore a surgical cap, mask with protective eyewear, full gown and sterile gloves throughout the procedure. Left subclavian region was prepped using chlorhexidine scrub and draped in sterile fashion. Anesthesia was achieved over the vein using 1% lidocaine. The introducer needle was inserted into the left subclavian vein and venous blood was withdrawn. The syringe was removed and a guidewire was advanced into the introducer needle. A small incision was made at the skin surface with a scalpel and the introducer needle was exchanged for a dilator over the guidewire. After appropriate dilation was obtained, the dilator was exchanged over the wire for a triple lumen, 7F, antibiotic coated central venous catheter. The wire was removed and the catheter was secured in place at 19 cm with a StatLock. A sterile central line dressing was placed over the catheter at the insertion site. The patient tolerated the procedure without any hemodynamic compromise. At time of procedure completion, all ports aspirated and flushed properly. Post-procedure chest x-ray is pending at this time. Anesthesia: local Surgeon: Blanca Collins Estimated blood loss (mL): 1 Pathology: none sent Condition: critical Disposition: ICU
--- NOTE | 2018-05-27 09:24 | XR ---
EXAM DATE: 05/27/2018 9:18 AM EST AGE/SEX: 57 years / Male INDICATIONS: Central line placement CLINICAL DATA: This is the patient's subsequent encounter. Patient reports that signs and symptoms h ave been present for 3 days and indicates a pain score of Nonresponsive. MEDICAL/SURGICAL HISTORY: . Hypertension. Deep venous thrombosis. Lupus None. COMPARISON: [facility] [place], CHEST 1V SINGLE AP, 05/25/2018. . FINDINGS: A single AP view of the chest demonstrates the lungs to be symmetrically aerated without evidence of mass, infiltrate or effusion. The cardiomediastinal contours are unremarkable. Osseous structures a re intact. Left subclavian central line with tip in the SVC CONCLUSION: No acute cardiopulmonary disease. Adequate placement of left clavian central line. Electronically signed by: Aquilino Taylor MD Board Certified Radiologist 05/27/2018 9:23 AM EST
[2018-05-27] MEDS ORDERED: Sodium Chloride 23.4% Inj 120 MEQ in Syringe/Bag 1 EACH IV.SIG ONE (10:00)
[2018-05-27] MEDS: Senna/Docusate Sodium 8.6/50 MG Tablet PO SCH ×2 (10:18→20:05)
--- NOTE | 2018-05-27 10:31 | XR ---
EXAM DATE: 05/27/2018 10:22 AM EST AGE/SEX: 57 years / Male INDICATIONS: Dobbhoff placement CLINICAL DATA: This is the patient's initial encounter. Patient reports that signs and symptoms have been present for 3 days and indicates a pain score of Nonresponsive. MEDICAL/SURGICAL HISTORY: . Hypertension. Deep venous thrombosis. Lupus None. COMPARISON: No prior exams available for comparison. FINDINGS: Examination of the abdomen demonstrates a normal bowel gas pattern. No free air is identified. No o rganomegaly is evident. Feeding tube is coiled in the stomach. Osseous structures are intact. CONCLUSION: Dobbhoff feeding tube coiled in the stomach. Electronically signed by: Jonah Vilchis MD Board Certified Radiologist 05/27/2018 10:29 AM EST
[2018-05-27] MEDS: Sodium Chloride 23.4% Inj 188 MEQ in Sod Chloride 0.9% Inj 1,000 ML IV.CONT SCH (11:00)
[2018-05-27] MEDS: Pantoprazole Inj 40 MG Vial IV.PUSH SCH (11:03)
--- NOTE | 2018-05-27 11:55 | P.PNNS ---
Subjective Interval history: patient currently awake, and oriented x 3 followed simple commands with stable left hemiparesis <AnjumKarine - Last Filed: 05/27/18 11:55> Physical Exam Vital signs: Vital Signs 05/26/18 12:00 05/26/18 12:01 05/26/18 13:01 Temperature Pulse Rate 68 81 76 Respiratory Rate 16 13 Blood Pressure 163/90 H 164/96 H Pulse Oximetry 98 99 05/26/18 14:00 05/26/18 15:00 05/26/18 16:00 Temperature 99.1 F Pulse Rate 88 70 90 Respiratory Rate 17 17 23 Blood Pressure 156/86 H 152/88 H 159/84 H Pulse Oximetry 96 99 100 05/26/18 17:00 05/26/18 18:00 05/26/18 19:00 Temperature Pulse Rate 79 89 103 H Respiratory Rate 25 H 23 26 H Blood Pressure 157/94 H 167/93 H 157/72 H Pulse Oximetry 96 100 98 05/26/18 20:00 05/26/18 20:35 05/26/18 21:24 Temperature 98.5 F Pulse Rate 98 H Respiratory Rate 21 Blood Pressure 162/95 H 155/85 H Pulse Oximetry 93 L 92 L 05/26/18 21:32 05/26/18 22:00 05/26/18 23:00 Temperature Pulse Rate 107 H 88 88 Respiratory Rate 16 20 26 H Blood Pressure 156/85 H 161/85 H Pulse Oximetry 91 L 92 L 05/27/18 00:00 05/27/18 01:00 05/27/18 02:00 Temperature 99.2 F Pulse Rate 101 H 103 H 123 H Respiratory Rate 20 25 H 25 H Blood Pressure 162/83 H 152/81 H 141/74 H Pulse Oximetry 95 87 L 91 L 05/27/18 03:00 05/27/18 04:00 05/27/18 05:00 Temperature 99.9 F H Pulse Rate 110 H 108 H 103 H Respiratory Rate 18 30 H 21 Blood Pressure 148/80 H 148/85 H 146/89 H Pulse Oximetry 92 L 91 L 93 L 05/27/18 06:00 Temperature Pulse Rate 95 H Respiratory Rate 36 H Blood Pressure 152/82 H Pulse Oximetry 93 L Intake & Output 05/26/18 05/27/18 05/27/18 18:59 06:59 18:59 Intake Total 1105 / 1105 1252 / 1252 105 / 105 Output Total 450 / 450 450 / 450 Balance 655 / 655 802 / 802 105 / 105 Weight 84 kg Intake: IV 1105 / 1105 1252 / 1252 105 / 105 NS Inj 1,000 ML @ 84 mls/hr IV. 1000 / 1000 100 / 100 CONT .[id number] MELISSA Rx#:[id number] Sodium Chloride 23.4% Inj 188 1047 / 1047 MEQ In NS Inj 1,000 ML @ 30 mls /hr IV.CONT .Q24H MELISSA Rx#: [id number] Keppra Inj 500 MG In NS Inj 100 105 / 105 105 / 105 105 / 105 ML @ 400 mls/hr IV.SIG Q12H MELISSA Rx#:[id number] Output: Urine 450 / 450 Urine Amount (Catheter) 450 / 450 Condom 450 / 450 Other: # Voids 3 # Incontinent Voids 2 3 Narrative: mildly lethargic but arousable. He opens his eyes. He follows commands. he is oriented to name, year pupils equal Motor: moves all four extremities to command with left hemiparesis - Urinary Catheter Management Condom Cath placed during this visit: no <Karine Valero - Last Filed: 05/27/18 11:55> Vital signs: Vital Signs 05/26/18 13:01 05/26/18 14:00 05/26/18 15:00 Temperature Pulse Rate 76 88 70 Respiratory Rate 13 17 17 Blood Pressure 164/96 H 156/86 H 152/88 H Pulse Oximetry 99 96 99 05/26/18 16:00 05/26/18 17:00 05/26/18 18:00 Temperature 99.1 F Pulse Rate 90 79 89 Respiratory Rate 23 25 H 23 Blood Pressure 159/84 H 157/94 H 167/93 H Pulse Oximetry 100 96 100 05/26/18 19:00 05/26/18 20:00 05/26/18 20:35 Temperature 98.5 F Pulse Rate 103 H 98 H Respiratory Rate 26 H 21 Blood Pressure 157/72 H 162/95 H Pulse Oximetry 98 93 L 92 L 05/26/18 21:24 05/26/18 21:32 05/26/18 22:00 Temperature Pulse Rate 107 H 88 Respiratory Rate 16 20 Blood Pressure 155/85 H 156/85 H Pulse Oximetry 91 L 05/26/18 23:00 05/27/18 00:00 05/27/18 01:00 Temperature 99.2 F Pulse Rate 88 101 H 103 H Respiratory Rate 26 H 20 25 H Blood Pressure 161/85 H 162/83 H 152/81 H Pulse Oximetry 92 L 95 87 L 05/27/18 02:00 05/27/18 03:00 05/27/18 04:00 Temperature 99.9 F H Pulse Rate 123 H 110 H 108 H Respiratory Rate 25 H 18 30 H Blood Pressure 141/74 H 148/80 H 148/85 H Pulse Oximetry 91 L 92 L 91 L 05/27/18 05:00 05/27/18 06:00 Temperature Pulse Rate 103 H 95 H Respiratory Rate 21 36 H Blood Pressure 146/89 H 152/82 H Pulse Oximetry 93 L 93 L Intake & Output 05/26/18 05/27/18 05/27/18 18:59 06:59 18:59 Intake Total 1105 / 1105 1252 / 1252 105 / 105 Output Total 450 / 450 450 / 450 Balance 655 / 655 802 / 802 105 / 105 Weight 84 kg Intake: IV 1105 / 1105 1252 / 1252 105 / 105 NS Inj 1,000 ML @ 84 mls/hr IV. 1000 / 1000 100 / 100 CONT .[id number] MELISSA Rx#:[id number] Sodium Chloride 23.4% Inj 188 1047 / 1047 MEQ In NS Inj 1,000 ML @ 30 mls /hr IV.CONT .Q24H MELISSA Rx#: [id number] Keppra Inj 500 MG In NS Inj 100 105 / 105 105 / 105 105 / 105 ML @ 400 mls/hr IV.SIG Q12H MELISSA Rx#:[id number] Output: Urine 450 / 450 Urine Amount (Catheter) 450 / 450 Condom 450 / 450 Other: # Voids 3 # Incontinent Voids 2 3 - Urinary Catheter Management Condom Cath placed during this visit: no <Richard Ramesh - Last Filed: 05/27/18 12:13> Assessment and Plan - Plan 57 y/o male spontaneous intracerebral hemorrhage, multiple intracerebral hemorrhages with intraventricular hemorrhage without hydrocephalus RECOMMENDATIONS AND PLAN: At this point, certainly a conservative neurosurgical approach is warranted. Depending on results of workup as well as his clinical course, we will determine the appropriate further diagnostic and therapeutic approach. Neurosurgery will follow. I discussed the case with Dr. Collins, the shopper, at length. In any case, thank you for allowing me to participate in the care of this patient. It also should be noted that we plan on pursuing serial imaging. 05/26/2018 neurological exam relatively stable, he is mildly lethargic but follows commands and oriented x 2 continue with close neurological checks in ISC continue PT, OT, ST continue critical care management will follow 05/27/2018 patient had change of mental status last night with speech difficulties, MRI Brain was obtained which was reviewed by neurosurgery team, obtain EEG to assess for seizures presently on examination patient appears improved and back to his baseline exam yesterday, discussed with shopper Dr. Collins as well as family members in the room continue close neuro checks, PT, OT, ST, swallow eval vs start on tube feedings will follow <Karine Valero - Last Filed: 05/27/18 11:55> - Attending Attestation May 27, 2018 As above, I personally interviewed and examined the patient. I reviewed the documentation, laboratory evaluation, and the imaging. I discussed the case with the neurosurgery team we formulated the plan. This is as described above. His imaging has been reviewed and there is no sign of a neoplastic process vascular abnormality as a cause of his spontaneous intracranial hemorrhage. At this point a continued conservative neurosurgical approach is warranted. He remains clinically and neurologically stable. Neurosurgery will follow. I have discussed the case with the patient's at the bedside and given her an update. I have also discussed case with Dr. Collins shopper. <Richard Ramesh - Last Filed: 05/27/18 12:13>
--- NOTE | 2018-05-27 13:36 | CT ---
EXAM DATE: 05/27/2018 1:27 PM EST AGE/SEX: 57 years / Male INDICATIONS: Evaluate intracerebral hemorrhage, increasing weakness. CLINICAL DATA: This is the patient's subsequent encounter. Patient reports that signs and symptoms h ave been present for 2 days and indicates a pain score of 0/10. MEDICAL/SURGICAL HISTORY: None. None. RADIATION DOSE: 36.47 CTDI (mGy) COMPARISON: [facility] [place], CT HEAD W/O CONTRAST, 05/25/2018. . TECHNIQUE: CT of the head without contrast. Using automated exposure control and adjustment of the mA and/or kV according to patient size, radiation dose was kept as low as reasonably achievable to ob tain optimal diagnostic quality images. DICOM format image data is available electronically for revi ew and comparison. FINDINGS: Previously described 4.6 cm hemorrhage right frontal lobe is stable. 8mm hemorrhage left parietal lob e is stable. There is a tiny subarachnoid hemorrhage on the left knee in the vertex not clearly seen on the prior exam. Intraventricular hemorrhage in the lateral ventricles has increased in size slight ly since May 25. Fourth ventricular hemorrhage has resolved. Ventricular size is relatively stable. No acute bony abnormality. CONCLUSION: 1. 4.6 cm right frontal hemorrhage and 8mm left parietal hemorrhage are relatively stable. Tiny new focus of hemorrhage near the vertex on the left and slight increase in hemorrhage in the lateral vent ricles since May 25. Fourth ventricular hemorrhage has decreased. Ventricular size is stable. . . Electronically signed by: Jonah Vilchis MD Board Certified Radiologist 05/27/2018 1:35 PM EST
--- NOTE | 2018-05-27 13:46 | P.DIET ---
Nutritional Evaluation Type of nutrition evaluation: initial Nutrition consult regarding: Tube Feeding Screening comments: 05/27/18 TF review Objective - Diagnosis intracranial bleed - Objective Body Mass Index: 25.8 % IBW: 108 (IBW = 172lb) Body Weight Used for Calculations: Actual (84kg) Energy Needs - Lower Range (kCal/kg): 28 Energy Needs - Upper Range (kCal/kg): 32 Lower Limit kCal/kg (kCals): 2,352 Upper Limit kCal/kg (kCals): 2,688 Lower Limit Protein Factor (Grams per Kg): 1.2 Upper Limit Protein Factor (Grams per Kg): 1.4 Lower Protein Needs (Protein): 101 Upper Protein Needs (Protein): 118 Dietitian Reviewed in Medical Record: Curent medications, Intake & Output, Labs , Medical history, Tube feeding Diet Order: NPO Objective Comments: random glu 104 113 Assessment Assessment: Pt currently receiving Jevity 1.5 TF w/ 45mL/hr as goal rate. Pt now NPO for possible surgical intervention and may need intubation per MD. RD to recommend increasing TF to Jevity 1.5 @ 65mL/hr to provide 2340 kcal, 100g of protein, and 1186mL of free water to best meet pts nutritional needs. Continue to monitor TF tolerance. Labs reviewed, dietitian following. Recommendations: 1. RD to recommend increasing TF to Jevity 1.5 @ 65mL/hr to best meet pts nutritional needs 2. Continue to monitor TF tolerance 3. Dietitian following Dietitian to Monitor: Lab values, Glucose level, Intake & Output, Tube feeding tolerance, Weight change, Medical course
--- NOTE | 2018-05-27 19:24 | MG ---
cc: Shaq Rodríguez MD ELECTROENCEPHALOGRAM NUMBER: [id number] DESCRIPTION: Diffuse theta slowing is seen to 7 Hz. Recording overall is synchronous and symmetric. I do not see any epileptiform or seizure activity. Some bifrontal delta slowing is occasionally noted. Photic stimulation performed without significant posterior driving. The patient is noted to be snoring, but did not reach stage II sleep. IMPRESSION: He is noted to snore. Sleep apnea could be considered. Some diffuse slowing is seen consistent with a mild diffuse encephalopathy. No focal abnormalities are noted. No seizure activity was seen. A right arm tremor is noted, but this only correlated with muscle artifact. MD JUAN R Lawrence/jovanni , 06:59 PM , 07:05 PM
[2018-05-27] MEDS: Acetaminophen 325 MG Tablet PO PRN (20:20)
[2018-05-28] MEDS: Sod Chloride 0.9% Inj 1,000 ML IV.CONT SCH ×3 (05:27→20:18)
[2018-05-28] MEDS: Chlorhexidine Gluconate 2% 1 Pack (2 Cloths) TOPICAL SCH ×2 (05:27→05:28)
[2018-05-28] MEDS: Senna/Docusate Sodium 8.6/50 MG Tablet PO SCH ×2 (09:14→20:21)
[2018-05-28] MEDS: Pantoprazole Inj 40 MG Vial IV.PUSH SCH (09:14)
--- NOTE | 2018-05-28 10:28 | P.PNNS ---
Subjective Interval history: no neuro changes overnight <Karine Valero - Last Filed: 05/28/18 10:24> Physical Exam Vital signs: Vital Signs 05/27/18 11:00 05/27/18 12:00 05/27/18 13:00 Temperature Pulse Rate 91 H 104 H 96 H Respiratory Rate 19 18 18 Blood Pressure 170/86 H 159/84 H 162/88 H Pulse Oximetry 96 94 L 95 05/27/18 13:55 05/27/18 14:00 05/27/18 14:02 Temperature Pulse Rate 93 H 104 H 104 H Respiratory Rate 18 20 23 Blood Pressure 153/86 H 158/100 H 149/90 H Pulse Oximetry 94 L 95 95 05/27/18 15:00 05/27/18 16:00 05/27/18 17:00 Temperature 100.4 F H Pulse Rate 102 H 102 H 97 H Respiratory Rate 28 H 21 28 H Blood Pressure 156/98 H 161/90 H 151/91 H Pulse Oximetry 95 95 94 L 05/27/18 18:00 05/27/18 19:00 05/27/18 20:00 Temperature 101.4 F H Pulse Rate 97 H 97 H 101 H Respiratory Rate 19 11 L 10 L Blood Pressure 156/92 H 155/87 H 156/85 H Pulse Oximetry 95 95 95 05/27/18 21:00 05/27/18 22:00 05/27/18 23:00 Temperature Pulse Rate 89 98 H 75 Respiratory Rate 15 16 16 Blood Pressure 124/79 131/78 119/75 Pulse Oximetry 94 L 95 96 05/28/18 00:00 05/28/18 01:00 05/28/18 02:00 Temperature 99.4 F Pulse Rate 87 75 89 Respiratory Rate 21 19 16 Blood Pressure 148/90 H 151/86 H 155/96 H Pulse Oximetry 100 96 97 05/28/18 03:00 05/28/18 04:00 05/28/18 05:00 Temperature 99.2 F Pulse Rate 78 82 83 Respiratory Rate 16 16 16 Blood Pressure 152/85 H 156/94 H 153/87 H Pulse Oximetry 95 94 L 94 L 05/28/18 06:00 05/28/18 07:00 05/28/18 08:00 Temperature 99.4 F Pulse Rate 83 88 86 Respiratory Rate 13 30 H 20 Blood Pressure 160/89 H 149/86 H 151/87 H Pulse Oximetry 94 L 93 L 94 L 05/28/18 09:00 Temperature Pulse Rate 80 Respiratory Rate 15 Blood Pressure 160/94 H Pulse Oximetry 95 Intake & Output 05/27/18 05/28/18 05/28/18 18:59 06:59 18:59 Intake Total 1053 / 1053 2989 / 2989 105 / 105 Output Total 1000 / 1000 600 / 600 Balance 53 / 53 2389 / 2389 105 / 105 Weight 82.2 kg Intake: IV 1005 / 1005 2135 / 2135 105 / 105 NS Inj 1,000 ML @ 84 mls/hr IV. 700 / 700 1000 / 1000 CONT .[id number] [facility] Rx#:[id number] Sodium Chloride 23.4% Inj 188 200 / 200 MEQ In NS Inj 1,000 ML @ 30 mls /hr IV.CONT .Q24H [facility] Rx#: [id number] Sodium Chloride 3% Inj 500 ML @ 1000 / 1000 40 mls/hr IV.SIG CONT [facility] Rx#: [id number] Sodium Chloride 23.4% Inj 120 30 / 30 MEQ In Bag/Syringe 1 EACH @ 60 mls/hr IV.SIG ONCE ONE Rx#: [id number] Keppra Inj 500 MG In NS Inj 100 105 / 105 105 / 105 105 / 105 ML @ 400 mls/hr IV.SIG Q12H [facility] Rx#:[id number] Tube Feeding 48 / 48 374 / 374 Water Bolus Amount 480 / 480 Output: Urine 1000 / 1000 Urine Amount (Catheter) 600 / 600 Condom 600 / 600 Other: # Voids 2 Narrative: appears more awake today, oriented to name and place and year left sided neglect follows simple commands pupils equal Motor: moves all four extremities to command with left hemiparesis - Urinary Catheter Management Condom Cath placed during this visit: no <Karine Valero - Last Filed: 05/28/18 10:24> Vital signs: Vital Signs 05/27/18 18:00 05/27/18 19:00 05/27/18 20:00 Temperature 101.4 F H Pulse Rate 97 H 97 H 101 H Respiratory Rate 19 11 L 10 L Blood Pressure 156/92 H 155/87 H 156/85 H Pulse Oximetry 95 95 95 05/27/18 21:00 05/27/18 22:00 05/27/18 23:00 Temperature Pulse Rate 89 98 H 75 Respiratory Rate 15 16 16 Blood Pressure 124/79 131/78 119/75 Pulse Oximetry 94 L 95 96 05/28/18 00:00 05/28/18 01:00 05/28/18 02:00 Temperature 99.4 F Pulse Rate 87 75 89 Respiratory Rate 21 19 16 Blood Pressure 148/90 H 151/86 H 155/96 H Pulse Oximetry 100 96 97 05/28/18 03:00 05/28/18 04:00 05/28/18 05:00 Temperature 99.2 F Pulse Rate 78 82 83 Respiratory Rate 16 16 16 Blood Pressure 152/85 H 156/94 H 153/87 H Pulse Oximetry 95 94 L 94 L 05/28/18 06:00 05/28/18 07:00 05/28/18 08:00 Temperature 99.4 F Pulse Rate 83 88 86 Respiratory Rate 13 30 H 20 Blood Pressure 160/89 H 149/86 H 151/87 H Pulse Oximetry 94 L 93 L 94 L 05/28/18 09:00 05/28/18 10:00 05/28/18 11:00 Temperature Pulse Rate 80 83 80 Respiratory Rate 15 17 17 Blood Pressure 160/94 H 156/90 H 158/87 H Pulse Oximetry 95 95 93 L 05/28/18 12:00 05/28/18 13:00 05/28/18 13:56 Temperature 98.4 F Pulse Rate 76 86 82 Respiratory Rate 15 21 18 Blood Pressure 127/80 129/80 142/83 H Pulse Oximetry 94 L 95 96 05/28/18 14:00 05/28/18 15:00 Temperature Pulse Rate 80 Respiratory Rate 16 Blood Pressure 140/82 144/81 H Pulse Oximetry 96 96 Intake & Output 05/27/18 05/28/18 05/28/18 18:59 06:59 18:59 Intake Total 1053 / 1053 2989 / 2989 605 / 605 Output Total 1000 / 1000 600 / 600 Balance 53 / 53 2389 / 2389 605 / 605 Weight 82.2 kg Intake: IV 1005 / 1005 2135 / 2135 605 / 605 NS Inj 1,000 ML @ 84 mls/hr IV. 700 / 700 1000 / 1000 CONT .[id number] [facility] Rx#:[id number] Sodium Chloride 23.4% Inj 188 200 / 200 MEQ In NS Inj 1,000 ML @ 30 mls /hr IV.CONT .Q24H [facility] Rx#: [id number] Sodium Chloride 3% Inj 500 ML @ 1000 / 1000 500 / 500 40 mls/hr IV.SIG CONT M[facility]SA Rx#: [id number] Sodium Chloride 23.4% Inj 120 30 / 30 MEQ In Bag/Syringe 1 EACH @ 60 mls/hr IV.SIG ONCE ONE Rx#: [id number] Keppra Inj 500 MG In NS Inj 100 105 / 105 105 / 105 105 / 105 ML @ 400 mls/hr IV.SIG Q12H [facility] Rx#:[id number] Tube Feeding 48 / 48 374 / 374 Water Bolus Amount 480 / 480 Output: Urine 1000 / 1000 Urine Amount (Catheter) 600 / 600 Condom 600 / 600 Other: # Voids 2 - Urinary Catheter Management Condom Cath placed during this visit: no <Richard Ramesh - Last Filed: 05/28/18 17:18> Assessment and Plan - Plan 57 y/o male spontaneous intracerebral hemorrhage, multiple intracerebral hemorrhages with intraventricular hemorrhage without hydrocephalus RECOMMENDATIONS AND PLAN: At this point, certainly a conservative neurosurgical approach is warranted. Depending on results of workup as well as his clinical course, we will determine the appropriate further diagnostic and therapeutic approach. Neurosurgery will follow. I discussed the case with Dr. Collins, the feeder catcher, at length. In any case, thank you for allowing me to participate in the care of this patient. It also should be noted that we plan on pursuing serial imaging. 05/26/2018 neurological exam relatively stable, he is mildly lethargic but follows commands and oriented x 2 continue with close neurological checks in ISC continue PT, OT, ST continue critical care management will follow 05/27/2018 patient had change of mental status last night with speech difficulties, MRI Brain was obtained which was reviewed by neurosurgery team, obtain EEG to assess for seizures presently on examination patient appears improved and back to his baseline exam yesterday, discussed with feeder catcher Dr. Collins as well as family members in the room continue close neuro checks, PT, OT, ST, swallow eval vs start on tube feedings will follow 05/28/2018 neuro exam remains stable EEG 05/27/18 reports no seizure activities seen continue with neuro checks in ISC cont critical care mgt PT, OT, ST will follow <Karine Valero - Last Filed: 05/28/18 10:24> - Attending Attestation May 28, 2018 I personally interviewed and examined the patient. I reviewed the documentation , laboratory evaluation, and the imaging. I discussed case with the neurosurgery team we formulated a plan which is as described above. The patient has remained clinically stable overnight and in fact is neurologically improved he is more responsive. I continued conservative neurosurgical approach is warranted. I discussed the case with Dr. Collins, feeder catcher. He concurs. Neurosurgery will follow. <Richard Ramesh - Last Filed: 05/28/18 17:18>
[2018-05-28] MEDS: Acetaminophen 325 MG Tablet PO PRN ×2 (11:14→17:27)
[2018-05-28] MEDS: Sodium Chloride 23.4% Inj 188 MEQ in Sod Chloride 0.9% Inj 1,000 ML IV.CONT SCH (17:26)
[2018-05-29] MEDS: Acetaminophen 325 MG Tablet PO PRN ×3 (00:21→23:10)
[2018-05-29] MEDS: Chlorhexidine Gluconate 2% 1 Pack (2 Cloths) TOPICAL SCH (04:08)
[2018-05-29] MEDS: hydrALAZINE HCl Inj 20 MG/ML Vial IV.PUSH PRN (04:09)
[2018-05-29] MEDS: Sod Chloride 0.9% Inj 1,000 ML IV.CONT SCH (05:58)
[2018-05-29] MEDS: Senna/Docusate Sodium 8.6/50 MG Tablet PO SCH ×2 (08:00→20:46)
[2018-05-29] MEDS: Pantoprazole Inj 40 MG Vial IV.PUSH SCH (08:01)
[2018-05-29 08:26] LABS: Hematocrit 29.7 % (39.0-51.0); Hemoglobin 10.5 gm/dL (13.0-17.0); Mean Corpuscular HGB Conc 35.5 % (32.0-36.0); Mean Corpuscular Hemoglobin 32.7 pg (27.0-34.0); Mean Corpuscular Volume 92.1 fL (80.0-100.0); Mean Platelet Volume 7.8 fL (7.0-11.0); Platelet Count 120 th/mm3 (150-450); Red Blood Count 3.23 mil/mm3 (4.50-5.90); Red Cell Distribution Width 13.2 % (11.6-17.2); White Blood Count 5.4 th/mm3 (4.0-11.0)
--- NOTE | 2018-05-29 08:34 | XR ---
EXAM DATE: 05/29/2018 7:37 AM EST AGE/SEX: 57 years / Male INDICATIONS: Evaluate for respiratory disease. CLINICAL DATA: This is the patient's subsequent encounter. Patient reports that signs and symptoms h ave been present for 4 - 6 days and indicates a pain score of 0/10. MEDICAL/SURGICAL HISTORY: . Hypertension. Deep venous thrombosis. Lupus. None. COMPARISON: C, CHEST 1V SINGLE AP, 05/27/2018. . FINDINGS: Feeding tube and central line are in good position. The heart remains enlarged. Poorly vascular disease normal. Minimal parenchymal changes persist left base. CONCLUSION: No significant change. No failure Electronically signed by: Gerard Omalley MD Board Certified Radiologist 05/29/2018 7:47 AM EST
[2018-05-29 09:04] LABS: Alanine Aminotransferase 37 U/L (12-78); Albumin 2.3 g/dL (3.4-5.0); Alkaline Phosphatase 94 U/L (45-117); Anion Gap 9 meq/L (5-15); Aspartate Aminotransferase 20 U/L (15-37); Blood Urea Nitrogen 13 mg/dL (7-18); Calcium 7.7 mg/dL (8.5-10.1); Carbon Dioxide 24.1 meq/L (21.0-32.0); Chloride 114 meq/L (98-107); Glomerular Filtration Rate Greater Than 89 mL/min (>89); Glucose,Random 114 mg/dL (74-106); Magnesium 1.9 mg/dL (1.5-2.5); Potassium 3.3 meq/L (3.5-5.1); Sodium 147 meq/L (136-145); Total Protein 6.7 g/dL (6.4-8.2)
[2018-05-29] MEDS: Heparin - SQ 10,000 UNITS/ML Vial SQ SCH ×2 (09:05→20:45)
--- NOTE | 2018-05-29 09:16 | P.PNCC ---
Subjective Subjective Remarks/Hospital Course: Patient is a 57-year-old male with past medical history significant for hypertension, chronic Eliquis use for DVT, who presented to [facility] with 3-day history of generalized weakness altered mental status and left -sided weakness. Patient is somnolent and slightly confused cannot give detailed history. Further workup in the [place] ED included CT head which showed that patient had a 5.5 x 4.4 cm right frontal intraparenchymal hematoma with intraventricular extension into the right frontal horn. There was blood in the lateral third and fourth ventricle with mass-effect on the right frontal lobe, 5 mm midline shift to the left. Additional 9 x 10 mm intraparenchymal hematoma in the left posterior frontal cortex. Neurosurgery at [place] was contacted and Dr. Ramesh accepted the patient. Patient was transferred to [facility] where I evaluated him. Lab work at [facility] showed PTT 69.5, PT 14.8, INR 1.31. Patient takes Eliquis for DVT On my evaluation patient is lying on the bed slightly somnolent. But wakes up easily, he is AOx2. He has 4 out of 5 power on the left upper and lower extremity, has left facial droop. Otherwise patient is oriented to person and time. Stat neurosurgery consult ordered and I reviewed the films with Dr. Ramesh. I have also ordered 2500 unit of K Centra to reverse apixaban (per patient last dose was yesterday afternoon which is approximately 18 hours ago). Follow coags. CT of the head follow-up at 8 AM. Patient is very critical, at risk of acute neuro decompensation. Further recommendation for any surgical intervention versus medical management based on repeat imaging 05/26/18: Patient lying in bed opens eyes follows commands. Neuro exam remains unchanged. No surgical intervention is planned at this time. Will get PT OT and speech eval 05/27/18: Overnight nurse reported some mental status changes including increased somnolence and confusion. Currently on my exam he is back to his baseline. Persistent left hemiparesis with some expressive aphasia, however oriented to person and somewhat to place. Sodium still at 138 will target sodium closer to 150 start 3% saline. MRI brain yesterday shows redemonstration of a large right frontoparietal intraparenchymal hematoma measuring up to 5.2 cm with prominent surrounding vasogenic edema resulting in 4 mm right to left subfalcine shift. Stable intraventricular blood. Redemonstration of 8 mm intraparenchymal hematoma in the left parietal high convexities without significant mass effect at this time. Objective Vital Signs / I&O: Vital Signs 05/28/18 10:00 05/28/18 11:00 05/28/18 12:00 Temperature 98.4 F Pulse Rate 83 80 76 Respiratory Rate 17 17 15 Blood Pressure 156/90 H 158/87 H 127/80 Pulse Oximetry 95 93 L 94 L 05/28/18 13:00 05/28/18 13:56 05/28/18 14:00 Temperature Pulse Rate 86 82 Respiratory Rate 21 18 Blood Pressure 129/80 142/83 H 140/82 Pulse Oximetry 95 96 96 05/28/18 15:00 05/28/18 16:00 05/28/18 17:00 Temperature Pulse Rate 80 85 77 Respiratory Rate 16 19 13 Blood Pressure 144/81 H 168/86 H 161/89 H Pulse Oximetry 96 94 L 92 L 05/28/18 18:00 05/28/18 19:00 05/28/18 20:00 Temperature 99.0 F Pulse Rate 87 83 73 Respiratory Rate 20 24 15 Blood Pressure 146/83 H 149/93 H 152/90 H Pulse Oximetry 94 L 96 96 05/28/18 21:00 05/28/18 22:00 05/28/18 23:00 Temperature Pulse Rate 78 93 H 87 Respiratory Rate 15 21 17 Blood Pressure 160/95 H 158/90 H 163/92 H Pulse Oximetry 96 95 96 05/29/18 00:00 05/29/18 01:00 05/29/18 02:00 Temperature 99.7 F H Pulse Rate 86 106 H 90 Respiratory Rate 17 16 19 Blood Pressure 166/92 H 142/89 H 145/82 H Pulse Oximetry 95 95 96 05/29/18 03:00 05/29/18 04:00 05/29/18 04:02 Temperature 98.5 F Pulse Rate 96 H 113 H 82 Respiratory Rate 23 15 15 Blood Pressure 159/85 H 160/102 H 162/88 H Pulse Oximetry 95 94 L 94 L 05/29/18 04:05 05/29/18 05:00 05/29/18 05:04 Temperature 101.0 F H Pulse Rate 79 123 H 122 H Respiratory Rate 15 22 24 Blood Pressure 154/91 H 137/71 Pulse Oximetry 95 94 L 94 L 05/29/18 06:00 05/29/18 07:00 05/29/18 08:00 Temperature 98.7 F Pulse Rate 120 H 82 86 Respiratory Rate 17 16 19 Blood Pressure 140/77 130/67 139/66 Pulse Oximetry 95 93 L 95 05/29/18 09:00 Temperature Pulse Rate 82 Respiratory Rate 16 Blood Pressure 133/68 Pulse Oximetry 96 Intake & Output 05/28/18 05/29/18 05/29/18 18:59 06:59 18:59 Intake Total 1072 / 1072 1045 / 1045 605 / 605 Output Total 800 / 800 800 / 800 Balance 272 / 272 245 / 245 605 / 605 Weight 84.8 kg Intake: IV 605 / 605 705 / 705 605 / 605 NS Inj 1,000 ML @ 84 mls/hr IV. 100 / 100 CONT .[id number] [facility] Rx#:[id number] Sodium Chloride 3% Inj 500 ML @ 500 / 500 500 / 500 500 / 500 40 mls/hr IV.SIG CONT [facility] Rx#: [id number] Keppra Inj 500 MG In NS Inj 100 105 / 105 105 / 105 105 / 105 ML @ 400 mls/hr IV.SIG Q12H [facility] Rx#:[id number] Oral 340 / 340 Tube Feeding 467 / 467 Output: Urine 800 / 800 800 / 800 Result Diagrams: 05/29/18 08:00 05/29/18 08:00 Objective Remarks: GEN: 57-year-old male lying in bed, GCS 14. Appears ill HEENT: Extraocular movements are grossly intact. Pupils are reactive. Oral cavity is dry. NECK: Supple. No JVD LUNGS: Air entry equal bilaterally no wheezes or crackles HEART: S1 and S2 normal, no murmurs. Blood pressure at goal ABDOMEN: Soft. Nontender EXTREMITIES: No pedal edema. NEUROLOGIC: Patient is oriented to person and intermittently to place. Somnolent but wakes up easily. GCS 14. Left hemiparesis present left facial droop. 4 out of 5 power in the left upper and lower extremity. Normal right upper and lower extremity Assessment and Plan - Problem List (1) Intracerebral hemorrhage Code(s): I61.9 - Nontraumatic intracerebral hemorrhage, unspecified Status: Acute (2) Intraventricular hemorrhage Code(s): I61.5 - Nontraumatic intracerebral hemorrhage, intraventricular Status: Acute (3) Coagulopathy Code(s): D68.9 - Coagulation defect, unspecified Status: Acute (4) Chronic anticoagulation Code(s): Z79.01 - intermediate school teacher (current) use of anticoagulants Status: Acute (5) HTN (hypertension) Code(s): I10 - Essential (primary) hypertension Status: Chronic (6) Chronic deep vein thrombosis (DVT) Code(s): I82.509 - Chronic embolism and thrombosis of unspecified deep veins of unspecified lower extremity Status: Chronic - Assessment and Plan Plan: NEURO: Large right frontal intraparenchymal hematoma with intraventricular extension Mass-effect on the right frontal lobe, 5 mm midline shift to the left. Encephalopathy -S/p K-centra 2500 units x1 -Follow-up CT of the head 05/25, remained stable, MRI brain 05/27/2018 remains stable -Overnight slight clinical deterioration now back to baseline. -Keep sodium more than 150, start 3% saline at 40 mL/h. Place central line -Avoid sedation. Keppra 500 mg IV every 12 for seizure prophylaxis -If clinical deterioration plan for EVD -PT/OT/speech eval -Out of bed RESP: -DuoNeb every 2 hours as needed -Aggressive pulmonary toilet CV: History of hypertension -Normal saline IV fluids 84 ml per hour. DC 2% saline -Start 3% saline at 40 mL/h -Cardene infusion to keep blood pressure less than 140/90, IV hydralazine as needed -Start amlodipine 5 mg daily if cleared by speech GI: -N.p.o for possible surgical intervention., IV Protonix -Speech pathology following : -Monitor renal function closely. ID: -No antibiotics at this time HEME: Chronic anticoagulation with apixaban History of DVT -Monitor CBC, coags, fibrinogen -K Centra 2500 units x1 stat -Follow-up coags at 12 PM -Check venous scan LE ENDO: -Electrolyte replacement per protocol -Sliding scale insulin if needed PROPH: -Bilateral lower extremity SCDs/WILLIAN. Chemical DVT prophylaxis is contraindicated. IV Protonix LINES: -Utilize peripheral IVs, central line if needed CC time 35 min Patient is a very critical with large intraparenchymal hemorrhage and intraventricular extension. He is at acute risk of respiratory neuro decompensation. He may need endotracheal intubation and emergency surgical intervention/EVD. Continue close neuro monitoring
--- NOTE | 2018-05-29 09:24 | P.PNCC ---
Subjective Subjective Remarks/Hospital Course: Patient is a 57-year-old male with past medical history significant for hypertension, chronic Eliquis use for DVT, who presented to [facility] with 3-day history of generalized weakness altered mental status and left -sided weakness. Patient is somnolent and slightly confused cannot give detailed history. Further workup in the [place] ED included CT head which showed that patient had a 5.5 x 4.4 cm right frontal intraparenchymal hematoma with intraventricular extension into the right frontal horn. There was blood in the lateral third and fourth ventricle with mass-effect on the right frontal lobe, 5 mm midline shift to the left. Additional 9 x 10 mm intraparenchymal hematoma in the left posterior frontal cortex. Neurosurgery at [facility] was contacted and Dr. Ramesh accepted the patient. Patient was transferred to [facility] where I evaluated him. Lab work at [facility] showed PTT 69.5, PT 14.8, INR 1.31. Patient takes Eliquis for DVT On my evaluation patient is lying on the bed slightly somnolent. But wakes up easily, he is AOx2. He has 4 out of 5 power on the left upper and lower extremity, has left facial droop. Otherwise patient is oriented to person and time. Stat neurosurgery consult ordered and I reviewed the films with Dr. Ramesh. I have also ordered 2500 unit of K Centra to reverse apixaban (per patient last dose was yesterday afternoon which is approximately 18 hours ago). Follow coags. CT of the head follow-up at 8 AM. Patient is very critical, at risk of acute neuro decompensation. Further recommendation for any surgical intervention versus medical management based on repeat imaging 05/26/18: Patient lying in bed opens eyes follows commands. Neuro exam remains unchanged. No surgical intervention is planned at this time. Will get PT OT and speech eval 05/27/18: Overnight nurse reported some mental status changes including increased somnolence and confusion. Currently on my exam he is back to his baseline. Persistent left hemiparesis with some expressive aphasia, however oriented to person and somewhat to place. Sodium still at 138 will target sodium closer to 150 start 3% saline. MRI brain yesterday shows redemonstration of a large right frontoparietal intraparenchymal hematoma measuring up to 5.2 cm with prominent surrounding vasogenic edema resulting in 4 mm right to left subfalcine shift. Stable intraventricular blood. Redemonstration of 8 mm intraparenchymal hematoma in the left parietal high convexities without significant mass effect at this time. LATE NOTE 05/28/18: Neuro status still waxing and waning. Currently improved after increasing the hypertonic saline and targeting sodium closer to 150. No surgical intervention planned at this time. Physical therapy consult ordered Objective Vital Signs / I&O: Vital Signs 05/28/18 10:00 05/28/18 11:00 05/28/18 12:00 Temperature 98.4 F Pulse Rate 83 80 76 Respiratory Rate 17 17 15 Blood Pressure 156/90 H 158/87 H 127/80 Pulse Oximetry 95 93 L 94 L 05/28/18 13:00 05/28/18 13:56 05/28/18 14:00 Temperature Pulse Rate 86 82 Respiratory Rate 21 18 Blood Pressure 129/80 142/83 H 140/82 Pulse Oximetry 95 96 96 05/28/18 15:00 05/28/18 16:00 05/28/18 17:00 Temperature Pulse Rate 80 85 77 Respiratory Rate 16 19 13 Blood Pressure 144/81 H 168/86 H 161/89 H Pulse Oximetry 96 94 L 92 L 05/28/18 18:00 05/28/18 19:00 05/28/18 20:00 Temperature 99.0 F Pulse Rate 87 83 73 Respiratory Rate 20 24 15 Blood Pressure 146/83 H 149/93 H 152/90 H Pulse Oximetry 94 L 96 96 05/28/18 21:00 05/28/18 22:00 05/28/18 23:00 Temperature Pulse Rate 78 93 H 87 Respiratory Rate 15 21 17 Blood Pressure 160/95 H 158/90 H 163/92 H Pulse Oximetry 96 95 96 05/29/18 00:00 05/29/18 01:00 05/29/18 02:00 Temperature 99.7 F H Pulse Rate 86 106 H 90 Respiratory Rate 17 16 19 Blood Pressure 166/92 H 142/89 H 145/82 H Pulse Oximetry 95 95 96 05/29/18 03:00 05/29/18 04:00 05/29/18 04:02 Temperature 98.5 F Pulse Rate 96 H 113 H 82 Respiratory Rate 23 15 15 Blood Pressure 159/85 H 160/102 H 162/88 H Pulse Oximetry 95 94 L 94 L 05/29/18 04:05 05/29/18 05:00 05/29/18 05:04 Temperature 101.0 F H Pulse Rate 79 123 H 122 H Respiratory Rate 15 22 24 Blood Pressure 154/91 H 137/71 Pulse Oximetry 95 94 L 94 L 05/29/18 06:00 05/29/18 07:00 05/29/18 08:00 Temperature 98.7 F Pulse Rate 120 H 82 86 Respiratory Rate 17 16 19 Blood Pressure 140/77 130/67 139/66 Pulse Oximetry 95 93 L 95 05/29/18 09:00 Temperature Pulse Rate 82 Respiratory Rate 16 Blood Pressure 133/68 Pulse Oximetry 96 Intake & Output 05/28/18 05/29/18 05/29/18 18:59 06:59 18:59 Intake Total 1072 / 1072 1045 / 1045 605 / 605 Output Total 800 / 800 800 / 800 Balance 272 / 272 245 / 245 605 / 605 Weight 84.8 kg Intake: IV 605 / 605 705 / 705 605 / 605 NS Inj 1,000 ML @ 84 mls/hr IV. 100 / 100 CONT .[id number] MELISSA Rx#:[id number] Sodium Chloride 3% Inj 500 ML @ 500 / 500 500 / 500 500 / 500 40 mls/hr IV.SIG CONT MELISSA Rx#: [id number] Keppra Inj 500 MG In NS Inj 100 105 / 105 105 / 105 105 / 105 ML @ 400 mls/hr IV.SIG Q12H MELISSA Rx#:[id number] Oral 340 / 340 Tube Feeding 467 / 467 Output: Urine 800 / 800 800 / 800 Result Diagrams: 05/29/18 08:00 05/29/18 08:00 Objective Remarks: GEN: 57-year-old male lying in bed, GCS 14. Appears ill HEENT: Extraocular movements are grossly intact. Pupils are reactive. Oral cavity is dry. NECK: Supple. No JVD LUNGS: Air entry equal bilaterally no wheezes or crackles HEART: S1 and S2 normal, no murmurs. Blood pressure at goal ABDOMEN: Soft. Nontender EXTREMITIES: No pedal edema. NEUROLOGIC: Patient is oriented to person and intermittently to place. Somnolent but wakes up easily. GCS 14. Left hemiparesis present left facial droop. 4 out of 5 power in the left upper and lower extremity. Normal right upper and lower extremity Assessment and Plan - Problem List (1) Intracerebral hemorrhage Code(s): I61.9 - Nontraumatic intracerebral hemorrhage, unspecified Status: Acute (2) Intraventricular hemorrhage Code(s): I61.5 - Nontraumatic intracerebral hemorrhage, intraventricular Status: Acute (3) Coagulopathy Code(s): D68.9 - Coagulation defect, unspecified Status: Acute (4) Chronic anticoagulation Code(s): Z79.01 - snf (current) use of anticoagulants Status: Acute (5) HTN (hypertension) Code(s): I10 - Essential (primary) hypertension Status: Chronic (6) Chronic deep vein thrombosis (DVT) Code(s): I82.509 - Chronic embolism and thrombosis of unspecified deep veins of unspecified lower extremity Status: Chronic - Assessment and Plan Plan: NEURO: Large right frontal intraparenchymal hematoma with intraventricular extension Mass-effect on the right frontal lobe, 5 mm midline shift to the left. Encephalopathy -S/p K-centra 2500 units x1 -Follow-up CT of the head 05/25, remained stable, MRI brain 05/27/2018 remains stable -No further clinical deterioration noted -Keep sodium more than 150, 3% saline at 60 mL/h. He is 23% saline as needed -Avoid sedation. Keppra 500 mg IV every 12 for seizure prophylaxis -If clinical deterioration plan for EVD -PT/OT/speech eval -Out of bed RESP: -DuoNeb every 2 hours as needed -Aggressive pulmonary toilet CV: History of hypertension -Increase 3% saline to 60 mL/h -Cardene infusion to keep blood pressure less than 140/90, IV hydralazine as needed -Amlodipine 5 mg daily if cleared by speech GI: -Start tube feeds, IV Protonix -Speech pathology following : -Monitor renal function closely. ID: -No antibiotics at this time HEME: Chronic anticoagulation with apixaban History of DVT -Monitor CBC, coags, fibrinogen -K Centra 2500 units x1 stat -Follow-up coags at 12 PM ENDO: -Electrolyte replacement per protocol -Sliding scale insulin if needed PROPH: -Bilateral lower extremity SCDs/WILLIAN. Chemical DVT prophylaxis is contraindicated. IV Protonix LINES: -Utilize peripheral IVs, central line if needed CC time 35 min Patient is a very critical with large intraparenchymal hemorrhage and intraventricular extension. He is at acute risk of respiratory neuro decompensation. He may need endotracheal intubation and emergency surgical intervention/EVD. Continue close neuro monitoring
--- NOTE | 2018-05-29 09:27 | P.PNCC ---
Subjective Subjective Remarks/Hospital Course: Patient is a 57-year-old male with past medical history significant for hypertension, chronic Eliquis use for DVT, who presented to [facility] with 3-day history of generalized weakness altered mental status and left -sided weakness. Patient is somnolent and slightly confused cannot give detailed history. Further workup in the [place] ED included CT head which showed that patient had a 5.5 x 4.4 cm right frontal intraparenchymal hematoma with intraventricular extension into the right frontal horn. There was blood in the lateral third and fourth ventricle with mass-effect on the right frontal lobe, 5 mm midline shift to the left. Additional 9 x 10 mm intraparenchymal hematoma in the left posterior frontal cortex. Neurosurgery at [facility] was contacted and Dr. Ramesh accepted the patient. Patient was transferred to [facility] where I evaluated him. Lab work at [facility] showed PTT 69.5, PT 14.8, INR 1.31. Patient takes Eliquis for DVT On my evaluation patient is lying on the bed slightly somnolent. But wakes up easily, he is AOx2. He has 4 out of 5 power on the left upper and lower extremity, has left facial droop. Otherwise patient is oriented to person and time. Stat neurosurgery consult ordered and I reviewed the films with Dr. Ramesh. I have also ordered 2500 unit of K Centra to reverse apixaban (per patient last dose was yesterday afternoon which is approximately 18 hours ago). Follow coags. CT of the head follow-up at 8 AM. Patient is very critical, at risk of acute neuro decompensation. Further recommendation for any surgical intervention versus medical management based on repeat imaging 05/26/18: Patient lying in bed opens eyes follows commands. Neuro exam remains unchanged. No surgical intervention is planned at this time. Will get PT OT and speech eval 05/27/18: Overnight nurse reported some mental status changes including increased somnolence and confusion. Currently on my exam he is back to his baseline. Persistent left hemiparesis with some expressive aphasia, however oriented to person and somewhat to place. Sodium still at 138 will target sodium closer to 150 start 3% saline. MRI brain yesterday shows redemonstration of a large right frontoparietal intraparenchymal hematoma measuring up to 5.2 cm with prominent surrounding vasogenic edema resulting in 4 mm right to left subfalcine shift. Stable intraventricular blood. Redemonstration of 8 mm intraparenchymal hematoma in the left parietal high convexities without significant mass effect at this time. LATE NOTE 05/28/18: Neuro status still waxing and waning. Currently improved after increasing the hypertonic saline and targeting sodium closer to 150. No surgical intervention planned at this time. Physical therapy consult ordered 05/29/18: Mental status remains stable. Wakes up easily follows commands oriented x2. Spiked fever up to 101 yesterday. Tylenol given cooling blanket ordered. No obvious source of fever however will check cultures. Chest x-ray no infiltrate. Neuro fever more likely. Given history of DVT will check venous Doppler bilateral upper and lower extremities. Start DVT prophylaxis with subcu heparin Objective Vital Signs / I&O: Vital Signs 05/28/18 10:00 05/28/18 11:00 05/28/18 12:00 Temperature 98.4 F Pulse Rate 83 80 76 Respiratory Rate 17 17 15 Blood Pressure 156/90 H 158/87 H 127/80 Pulse Oximetry 95 93 L 94 L 05/28/18 13:00 05/28/18 13:56 05/28/18 14:00 Temperature Pulse Rate 86 82 Respiratory Rate 21 18 Blood Pressure 129/80 142/83 H 140/82 Pulse Oximetry 95 96 96 05/28/18 15:00 05/28/18 16:00 05/28/18 17:00 Temperature Pulse Rate 80 85 77 Respiratory Rate 16 19 13 Blood Pressure 144/81 H 168/86 H 161/89 H Pulse Oximetry 96 94 L 92 L 05/28/18 18:00 05/28/18 19:00 05/28/18 20:00 Temperature 99.0 F Pulse Rate 87 83 73 Respiratory Rate 20 24 15 Blood Pressure 146/83 H 149/93 H 152/90 H Pulse Oximetry 94 L 96 96 05/28/18 21:00 05/28/18 22:00 05/28/18 23:00 Temperature Pulse Rate 78 93 H 87 Respiratory Rate 15 21 17 Blood Pressure 160/95 H 158/90 H 163/92 H Pulse Oximetry 96 95 96 05/29/18 00:00 05/29/18 01:00 05/29/18 02:00 Temperature 99.7 F H Pulse Rate 86 106 H 90 Respiratory Rate 17 16 19 Blood Pressure 166/92 H 142/89 H 145/82 H Pulse Oximetry 95 95 96 05/29/18 03:00 05/29/18 04:00 05/29/18 04:02 Temperature 98.5 F Pulse Rate 96 H 113 H 82 Respiratory Rate 23 15 15 Blood Pressure 159/85 H 160/102 H 162/88 H Pulse Oximetry 95 94 L 94 L 05/29/18 04:05 05/29/18 05:00 05/29/18 05:04 Temperature 101.0 F H Pulse Rate 79 123 H 122 H Respiratory Rate 15 22 24 Blood Pressure 154/91 H 137/71 Pulse Oximetry 95 94 L 94 L 05/29/18 06:00 05/29/18 07:00 05/29/18 08:00 Temperature 98.7 F Pulse Rate 120 H 82 86 Respiratory Rate 17 16 19 Blood Pressure 140/77 130/67 139/66 Pulse Oximetry 95 93 L 95 05/29/18 09:00 Temperature Pulse Rate 82 Respiratory Rate 16 Blood Pressure 133/68 Pulse Oximetry 96 Intake & Output 05/28/18 05/29/18 05/29/18 18:59 06:59 18:59 Intake Total 1072 / 1072 1045 / 1045 605 / 605 Output Total 800 / 800 800 / 800 Balance 272 / 272 245 / 245 605 / 605 Weight 84.8 kg Intake: IV 605 / 605 705 / 705 605 / 605 NS Inj 1,000 ML @ 84 mls/hr IV. 100 / 100 CONT .[id number] MELISSA Rx#:[id number] Sodium Chloride 3% Inj 500 ML @ 500 / 500 500 / 500 500 / 500 40 mls/hr IV.SIG CONT MELISSA Rx#: [id number] Keppra Inj 500 MG In NS Inj 100 105 / 105 105 / 105 105 / 105 ML @ 400 mls/hr IV.SIG Q12H MELISSA Rx#:[id number] Oral 340 / 340 Tube Feeding 467 / 467 Output: Urine 800 / 800 800 / 800 Other: Date of Last Bowel Movement 05/23/18 Result Diagrams: 05/29/18 08:00 05/29/18 08:00 Objective Remarks: GEN: 57-year-old male lying in bed, GCS 14. Right gaze preference HEENT: Right gaze preference. Pupils are reactive. Oral cavity is dry. NECK: Supple. No JVD LUNGS: Air entry equal bilaterally no wheezes or crackles HEART: S1 and S2 normal, no murmurs. Blood pressure at goal ABDOMEN: Soft. Nontender EXTREMITIES: No pedal edema. NEUROLOGIC: Patient is oriented to person and intermittently to place. Somnolent but wakes up easily. GCS 14. Left hemiparesis present left facial droop. 4 out of 5 power in the left upper and lower extremity. Normal right upper and lower extremity Assessment and Plan - Problem List (1) Intracerebral hemorrhage Code(s): I61.9 - Nontraumatic intracerebral hemorrhage, unspecified Status: Acute (2) Intraventricular hemorrhage Code(s): I61.5 - Nontraumatic intracerebral hemorrhage, intraventricular Status: Acute (3) Coagulopathy Code(s): D68.9 - Coagulation defect, unspecified Status: Acute (4) Chronic anticoagulation Code(s): Z79.01 - intermediate project manager (current) use of anticoagulants Status: Acute (5) HTN (hypertension) Code(s): I10 - Essential (primary) hypertension Status: Chronic (6) Chronic deep vein thrombosis (DVT) Code(s): I82.509 - Chronic embolism and thrombosis of unspecified deep veins of unspecified lower extremity Status: Chronic - Assessment and Plan Plan: Plan: NEURO: Large right frontal intraparenchymal hematoma with intraventricular extension Mass-effect on the right frontal lobe, 5 mm midline shift to the left. Encephalopathy -S/p K-centra 2500 units x1 -Follow-up CT of the head 05/25, remained stable, MRI brain 05/27/2018 remains stable -No further clinical deterioration noted -Keep sodium more than 150, 3% saline at 60 mL/h. Use 23% saline as needed -Keppra 500 mg IV every 12 for seizure prophylaxis -If clinical deterioration plan for EVD -PT/OT/speech eval, Out of bed RESP: -DuoNeb every 2 hours as needed -Aggressive pulmonary toilet CV: History of hypertension -3% saline to 60 mL/h -Cardene infusion to keep blood pressure less than 140/90, IV hydralazine as needed -Amlodipine 5 mg daily via NGT GI: -Tolerating tube feeds, IV Protonix -Speech pathology following : -Monitor renal function closely. HEME/ID: Fever Chronic anticoagulation with apixaban History of DVT -Fever likely neurogenic rule out infection -Send blood and urine culture, chest x-ray no acute infiltrate -Given history of DVT check bilateral upper and lower extremity venous scan -No antibiotics at this time -Monitor CBC, coags -s/p K Centra 2500 units x1 on arrival to ICU -Follow-up coags at 12 PM ENDO: -Electrolyte replacement per protocol -Sliding scale insulin if needed PROPH: -Bilateral lower extremity SCDs/WILLIAN. Chemical DVT prophylaxis cleared by Dr. Ramesh. Start heparin 5000 units subcu every 12. IV Protonix LINES: -Utilize peripheral IVs, central line if needed CC time 35 min Patient is a very critical with large intraparenchymal hemorrhage and intraventricular extension. He is at acute risk of respiratory neuro decompensation. He may need endotracheal intubation and emergency surgical intervention/EVD. Continue close neuro monitoring
[2018-05-29 09:46] LABS: Bilirubin,Urine Negative (Negative); Clarity,Urine Hazy (Clear); Color,Urine Yellow (Yellw/Straw); Glucose,Urine (UA) 50 mg/dL (Negative); Hyaline Casts,Urine 3 /lpf (0-3); Leukocyte Esterase,Urine Negative (Negative); Mucus,Urine Few /lpf (Occasional); Nitrite,Urine Negative (Negative); Specific Gravity,Urine 1.016 (1.002-1.035)
--- NOTE | 2018-05-29 11:37 | P.PNNS ---
Subjective Interval history: May 29, 2018 The patient has remained stable overnight. He has no real complaints. Physical Exam Vital signs: Vital Signs 05/28/18 12:00 05/28/18 13:00 05/28/18 13:56 Temperature 98.4 F Pulse Rate 76 86 82 Respiratory Rate 15 21 18 Blood Pressure 127/80 129/80 142/83 H Pulse Oximetry 94 L 95 96 05/28/18 14:00 05/28/18 15:00 05/28/18 16:00 Temperature Pulse Rate 80 85 Respiratory Rate 16 19 Blood Pressure 140/82 144/81 H 168/86 H Pulse Oximetry 96 96 94 L 05/28/18 17:00 05/28/18 18:00 05/28/18 19:00 Temperature Pulse Rate 77 87 83 Respiratory Rate 13 20 24 Blood Pressure 161/89 H 146/83 H 149/93 H Pulse Oximetry 92 L 94 L 96 05/28/18 20:00 05/28/18 21:00 05/28/18 22:00 Temperature 99.0 F Pulse Rate 73 78 93 H Respiratory Rate 15 15 21 Blood Pressure 152/90 H 160/95 H 158/90 H Pulse Oximetry 96 96 95 05/28/18 23:00 05/29/18 00:00 05/29/18 01:00 Temperature 99.7 F H Pulse Rate 87 86 106 H Respiratory Rate 17 17 16 Blood Pressure 163/92 H 166/92 H 142/89 H Pulse Oximetry 96 95 95 05/29/18 02:00 05/29/18 03:00 05/29/18 04:00 Temperature Pulse Rate 90 96 H 113 H Respiratory Rate 19 23 15 Blood Pressure 145/82 H 159/85 H 160/102 H Pulse Oximetry 96 95 94 L 05/29/18 04:02 05/29/18 04:05 05/29/18 05:00 Temperature 98.5 F Pulse Rate 82 79 123 H Respiratory Rate 15 15 22 Blood Pressure 162/88 H 154/91 H Pulse Oximetry 94 L 95 94 L 05/29/18 05:04 05/29/18 06:00 05/29/18 07:00 Temperature 101.0 F H Pulse Rate 122 H 120 H 82 Respiratory Rate 24 17 16 Blood Pressure 137/71 140/77 130/67 Pulse Oximetry 94 L 95 93 L 05/29/18 08:00 05/29/18 09:00 Temperature 98.7 F Pulse Rate 86 82 Respiratory Rate 19 16 Blood Pressure 139/66 133/68 Pulse Oximetry 95 96 Intake & Output 05/28/18 05/29/18 05/29/18 18:59 06:59 18:59 Intake Total 1072 / 1072 1045 / 1045 605 / 605 Output Total 800 / 800 800 / 800 Balance 272 / 272 245 / 245 605 / 605 Weight 84.8 kg Intake: IV 605 / 605 705 / 705 605 / 605 NS Inj 1,000 ML @ 84 mls/hr IV. 100 / 100 CONT .[id number] MELISSA Rx#:[id number] Sodium Chloride 3% Inj 500 ML @ 500 / 500 500 / 500 500 / 500 40 mls/hr IV.SIG CONT MELISSA Rx#: [id number] Keppra Inj 500 MG In NS Inj 100 105 / 105 105 / 105 105 / 105 ML @ 400 mls/hr IV.SIG Q12H MELISSA Rx#:[id number] Oral 340 / 340 Tube Feeding 467 / 467 Output: Urine 800 / 800 800 / 800 Other: Date of Last Bowel Movement 05/23/18 - Routine Neurological Exam May 29, 2018 Patient is lying in bed as I enter the room. He is in no acute distress. His vital signs have been stable but he has a low-grade fever with a temperature up to 101. Mental status testing finds the patient to be awake and alert. He appears to be oriented by 2. His speech is fluent. Cranial nerve testing 2 through 12 is grossly intact with the right conjugate gaze preference. Visual karimi are full to confrontation. Motor examination revealed a mild left hemiparesis and sensory examination revealed a left-sided lack mild left hemisensory deficit. - Urinary Catheter Management Condom Cath placed during this visit: no Assessment and Plan - Plan 57 y/o male spontaneous intracerebral hemorrhage, multiple intracerebral hemorrhages with intraventricular hemorrhage without hydrocephalus RECOMMENDATIONS AND PLAN: At this point, certainly a conservative neurosurgical approach is warranted. Depending on results of workup as well as his clinical course, we will determine the appropriate further diagnostic and therapeutic approach. Neurosurgery will follow. I discussed the case with Dr. Collins, the thread laster, at length. In any case, thank you for allowing me to participate in the care of this patient. It also should be noted that we plan on pursuing serial imaging. 05/26/2018 neurological exam relatively stable, he is mildly lethargic but follows commands and oriented x 2 continue with close neurological checks in ISC continue PT, OT, ST continue critical care management will follow 05/27/2018 patient had change of mental status last night with speech difficulties, MRI Brain was obtained which was reviewed by neurosurgery team, obtain EEG to assess for seizures presently on examination patient appears improved and back to his baseline exam yesterday, discussed with thread laster Dr. Collins as well as family members in the room continue close neuro checks, PT, OT, ST, swallow eval vs start on tube feedings will follow 05/28/2018 neuro exam remains stable EEG 05/27/18 reports no seizure activities seen continue with neuro checks in ISC cont critical care mgt PT, OT, ST will follow May 29, 2018 As above, patient remains neurologically stable. A conservative neurosurgical approach is warranted. The patient will require extensive course of post stroke rehabilitation. I discussed the case with Dr. Collins, the thread laster. He apparently has developed a low-grade fever and there is a question whether he has a new infiltrate on his chest x-ray. He will be evaluated and treated for this. Neurosurgery will follow.
--- NOTE | 2018-05-29 13:35 | US ---
EXAM DATE: 05/29/2018 12:49 PM EST AGE/SEX: 57 years / Male INDICATIONS: Upper extremity swelling deep vein thrombosis. CLINICAL DATA: This is the patient's initial encounter. Patient reports that signs and symptoms have been present for 1 day and indicates a pain score of 0/10. MEDICAL/SURGICAL HISTORY: . Hypertension. Deep vein thrombosis. Chronic [place] use. Smoker . None. COMPARISON: No prior exams available for comparison. FINDINGS: Right Upper Extremity: The vessels are compressible and augmentation response is documented. No fill ing defects are seen. The flow is phasic with respiration. Left Upper Extremity: Left mid basilic thrombosis. Cephalic vein patent. CONCLUSION: 1. Left mid basilic vein thrombosis. Electronically signed by: Gerard Omalley MD Board Certified Radiologist 05/29/2018 12:54 PM EST
--- NOTE | 2018-05-29 13:35 | US ---
EXAM DATE: 05/29/2018 12:44 PM EST AGE/SEX: 57 years / Male INDICATIONS: Lower extremity deep vein thrombosis. CLINICAL DATA: This is the patient's initial encounter. Patient reports that signs and symptoms have been present for 1 day and indicates a pain score of 0/10. MEDICAL/SURGICAL HISTORY: . Hypertension. Deep vein thrombosis. Chronic Eliquis use. Smoker. None. COMPARISON: No prior exams available for comparison. TECHNIQUE: Venous ultrasound of both lower extremities was performed from the inguinal ligament to t he proximal calf. Real-time, color Doppler and spectral tracing, compression and augmentation techni ques were used. FINDINGS: Right Leg: Normal compression of the deep venous system from the inguinal region to the proximal homero f. No echogenic clot is seen. Normal response of the venous system to augmentation and respiration. Left Leg: There is incomplete compression and lack of color Doppler flow in the common femoral vein, proximal, mid, and distal superficial femoral vein. Normal color Doppler flow and compression is see n of the popliteal vein and proximal calf veins. Other: None. CONCLUSION: 1. Occlusive DVT of the left common femoral vein and superficial femoral vein diffusely. 2. No evidence of DVT in the right lower extremity. Electronically signed by: Rei Carrillo MD Board Certified Radiologist 05/29/2018 12:55 PM EST
[2018-05-29] MEDS: Sodium Chloride 23.4% Inj 188 MEQ in Sod Chloride 0.9% Inj 1,000 ML IV.CONT SCH (17:18)
[2018-05-30] MEDS: Chlorhexidine Gluconate 2% 1 Pack (2 Cloths) TOPICAL SCH (05:22)
[2018-05-30] MEDS: Pantoprazole Inj 40 MG Vial IV.PUSH SCH (08:07)
[2018-05-30] MEDS: Heparin - SQ 10,000 UNITS/ML Vial SQ SCH ×2 (08:08→20:39)
[2018-05-30] MEDS: Senna/Docusate Sodium 8.6/50 MG Tablet PO SCH ×2 (08:09→20:40)
[2018-05-30 10:36] LABS: Hematocrit 30.6 % (39.0-51.0); Hemoglobin 10.8 gm/dL (13.0-17.0); Mean Corpuscular HGB Conc 35.2 % (32.0-36.0); Mean Corpuscular Hemoglobin 32.9 pg (27.0-34.0); Mean Corpuscular Volume 93.4 fL (80.0-100.0); Platelet Count 114 th/mm3 (150-450); Red Blood Count 3.28 mil/mm3 (4.50-5.90); Red Cell Distribution Width 13.4 % (11.6-17.2); White Blood Count 4.4 th/mm3 (4.0-11.0)
[2018-05-30 10:53] LABS: Alanine Aminotransferase 34 U/L (12-78); Albumin 2.3 g/dL (3.4-5.0); Anion Gap 8 meq/L (5-15); Aspartate Aminotransferase 20 U/L (15-37); Blood Urea Nitrogen 12 mg/dL (7-18); Calcium 7.9 mg/dL (8.5-10.1); Carbon Dioxide 24.1 meq/L (21.0-32.0); Chloride 114 meq/L (98-107); Glomerular Filtration Rate Greater Than 89 mL/min (>89); Glucose,Random 172 mg/dL (74-106); Potassium 3.3 meq/L (3.5-5.1); Sodium 146 meq/L (136-145)
[2018-05-30 10:55] LABS: Alkaline Phosphatase 84 U/L (45-117); Total Protein 6.6 g/dL (6.4-8.2)
[2018-05-30] MEDS ORDERED: Vancomycin Inj 1,000 MG in Sodium Chlor 0.9% Inj 250 ML IV.SIG STA (11:15)
[2018-05-30] MEDS ORDERED: Vancomycin Consult Pharmacy OTHER PRN (11:20)
--- NOTE | 2018-05-30 11:40 | P.PNNS ---
Subjective Interval history: May 30, 2018 The patient has remained stable overnight. He has no complaints. Physical Exam Vital signs: Vital Signs 05/29/18 12:00 05/29/18 12:29 05/29/18 13:00 Temperature 99.4 F Pulse Rate 73 80 96 H Respiratory Rate 16 19 21 Blood Pressure 118/64 121/58 L Pulse Oximetry 94 L 95 96 05/29/18 14:00 05/29/18 15:00 05/29/18 16:00 Temperature 99.7 F H Pulse Rate 83 68 72 Respiratory Rate 20 14 16 Blood Pressure 128/69 152/77 H 138/80 Pulse Oximetry 96 92 L 93 L 05/29/18 16:11 05/29/18 17:00 05/29/18 17:38 Temperature Pulse Rate 76 75 92 H Respiratory Rate 16 Blood Pressure 136/77 Pulse Oximetry 95 05/29/18 18:00 05/29/18 19:00 05/29/18 20:00 Temperature 98.3 F Pulse Rate 82 81 90 Respiratory Rate 18 21 27 H Blood Pressure 145/78 H 145/69 H 152/78 H Pulse Oximetry 94 L 93 L 95 05/29/18 21:00 05/29/18 22:00 05/29/18 23:00 Temperature Pulse Rate 82 77 86 Respiratory Rate 24 19 Blood Pressure 148/70 H 154/77 H 137/83 Pulse Oximetry 96 95 100 05/30/18 00:00 05/30/18 01:00 05/30/18 02:00 Temperature 98.9 F Pulse Rate 82 75 71 Respiratory Rate 21 21 23 Blood Pressure 141/77 H 141/73 H 151/75 H Pulse Oximetry 98 100 100 05/30/18 03:00 05/30/18 04:00 05/30/18 05:00 Temperature 98.5 F Pulse Rate 68 63 76 Respiratory Rate 21 15 19 Blood Pressure 157/86 H 153/87 H 157/82 H Pulse Oximetry 100 99 100 05/30/18 06:00 05/30/18 07:00 05/30/18 08:00 Temperature 98.8 F Pulse Rate 77 69 68 Respiratory Rate 16 15 14 Blood Pressure 172/84 H 155/88 H 158/80 H Pulse Oximetry 99 99 99 05/30/18 08:20 05/30/18 09:00 05/30/18 09:40 Temperature 98.5 F Pulse Rate 75 83 86 Respiratory Rate 26 H 22 Blood Pressure 168/86 H 154/81 H Pulse Oximetry 100 100 05/30/18 10:00 05/30/18 10:13 Temperature Pulse Rate 85 87 Respiratory Rate 22 Blood Pressure 152/80 H Pulse Oximetry 98 Intake & Output 05/29/18 05/30/18 05/30/18 18:59 06:59 18:59 Intake Total 2604 / 2604 825 / 825 500 / 500 Output Total 500 / 500 1030 / 1030 Balance 2104 / 2104 -205 / -205 500 / 500 Weight 87.5 kg Intake: IV 1784 / 1784 105 / 105 500 / 500 Sodium Chloride 3% Inj 500 ML @ 1579 / 1579 500 / 500 40 mls/hr IV.SIG CONT MELISSA Rx#: [id number] Ofirmev Inj 1,000 mg In 100 ml 100 / 100 @ 400 mls/hr IV.SIG ONCE ONE Rx #:[id number] Keppra Inj 500 MG In NS Inj 100 105 / 105 105 / 105 ML @ 400 mls/hr IV.SIG Q12H MELISSA Rx#:[id number] Oral 720 / 720 720 / 720 Tube Irrigant 100 / 100 Output: Urine 500 / 500 1030 / 1030 Other: Date of Last Bowel Movement 05/29/18 05/29/18 05/29/18 # Bowel Movements 3 - Routine Neurological Exam May 30, 2018 The patient is lying in bed as I enter the room. He is in no acute distress. His family surrounds him. He is eating some Jell-O. On neurological examination, mental status testing finds the patient to be awake and alert. He is oriented by 3. Cognitive functions grossly intact. His speech is fluent. Cranial nerve testing 2 through 12 is grossly intact. He continues to have a right gaze preference. He neglects his left side and has a mild left hemiparesis which is stable. - Urinary Catheter Management Condom Cath placed during this visit: no Assessment and Plan - Plan 57 y/o male spontaneous intracerebral hemorrhage, multiple intracerebral hemorrhages with intraventricular hemorrhage without hydrocephalus RECOMMENDATIONS AND PLAN: At this point, certainly a conservative neurosurgical approach is warranted. Depending on results of workup as well as his clinical course, we will determine the appropriate further diagnostic and therapeutic approach. Neurosurgery will follow. I discussed the case with Dr. Collins, the soil engineer, at length. In any case, thank you for allowing me to participate in the care of this patient. It also should be noted that we plan on pursuing serial imaging. 05/26/2018 neurological exam relatively stable, he is mildly lethargic but follows commands and oriented x 2 continue with close neurological checks in ISC continue PT, OT, ST continue critical care management will follow 05/27/2018 patient had change of mental status last night with speech difficulties, MRI Brain was obtained which was reviewed by neurosurgery team, obtain EEG to assess for seizures presently on examination patient appears improved and back to his baseline exam yesterday, discussed with soil engineer Dr. Collins as well as family members in the room continue close neuro checks, PT, OT, ST, swallow eval vs start on tube feedings will follow 05/28/2018 neuro exam remains stable EEG 05/27/18 reports no seizure activities seen continue with neuro checks in ISC cont critical care mgt PT, OT, ST will follow May 29, 2018 As above, patient remains neurologically stable. A conservative neurosurgical approach is warranted. The patient will require extensive course of post stroke rehabilitation. I discussed the case with Dr. Collins, the soil engineer. He apparently has developed a low-grade fever and there is a question whether he has a new infiltrate on his chest x-ray. He will be evaluated and treated for this. Neurosurgery will follow. May 30, 2018 The patient remained stable and continues to improve clinically and neurologically following a spontaneous intracerebral hemorrhages with intraventricular hemorrhage. There is no hydrocephalus. From a neurosurgical perspective a conservative approach is warranted. The patient will require an extensive course of post stroke rehabilitation. It is probably prudent that this patient not go on any anticoagulants unless absolutely necessary. I discussed this all with the patient and his at the bedside. They understand and are agreeable. Neurosurgery will sign off. Please reconsult as needed.
--- NOTE | 2018-05-30 11:46 | P.PNCC ---
Subjective Subjective Remarks/Hospital Course: Patient is a 57-year-old male with past medical history significant for hypertension, chronic Eliquis use for DVT, who presented to [facility] with 3-day history of generalized weakness altered mental status and left -sided weakness. Patient is somnolent and slightly confused cannot give detailed history. Further workup in the [place] ED included CT head which showed that patient had a 5.5 x 4.4 cm right frontal intraparenchymal hematoma with intraventricular extension into the right frontal horn. There was blood in the lateral third and fourth ventricle with mass-effect on the right frontal lobe, 5 mm midline shift to the left. Additional 9 x 10 mm intraparenchymal hematoma in the left posterior frontal cortex. Neurosurgery at [place] was contacted and Dr. Ramesh accepted the patient. Patient was transferred to [facility] where I evaluated him. Lab work at [facility] showed PTT 69.5, PT 14.8, INR 1.31. Patient takes Eliquis for DVT On my evaluation patient is lying on the bed slightly somnolent. But wakes up easily, he is AOx2. He has 4 out of 5 power on the left upper and lower extremity, has left facial droop. Otherwise patient is oriented to person and time. Stat neurosurgery consult ordered and I reviewed the films with Dr. Ramesh. I have also ordered 2500 unit of K Centra to reverse apixaban (per patient last dose was yesterday afternoon which is approximately 18 hours ago). Follow coags. CT of the head follow-up at 8 AM. Patient is very critical, at risk of acute neuro decompensation. Further recommendation for any surgical intervention versus medical management based on repeat imaging 05/26/18: Patient lying in bed opens eyes follows commands. Neuro exam remains unchanged. No surgical intervention is planned at this time. Will get PT OT and speech eval 05/27/18: Overnight nurse reported some mental status changes including increased somnolence and confusion. Currently on my exam he is back to his baseline. Persistent left hemiparesis with some expressive aphasia, however oriented to person and somewhat to place. Sodium still at 138 will target sodium closer to 150 start 3% saline. MRI brain yesterday shows redemonstration of a large right frontoparietal intraparenchymal hematoma measuring up to 5.2 cm with prominent surrounding vasogenic edema resulting in 4 mm right to left subfalcine shift. Stable intraventricular blood. Redemonstration of 8 mm intraparenchymal hematoma in the left parietal high convexities without significant mass effect at this time. LATE NOTE 05/28/18: Neuro status still waxing and waning. Currently improved after increasing the hypertonic saline and targeting sodium closer to 150. No surgical intervention planned at this time. Physical therapy consult ordered 05/29/18: Mental status remains stable. Wakes up easily follows commands oriented x2. Spiked fever up to 101 yesterday. Tylenol given cooling blanket ordered. No obvious source of fever however will check cultures. Chest x-ray no infiltrate. Neuro fever more likely. Given history of DVT will check venous Doppler bilateral upper and lower extremities. Start DVT prophylaxis with subcu heparin 05/30/18: Neurologically remains stable no fever. Overall mentation seems to be improving. However blood cultures from yesterday all 4 bottles positive for pleomorphic gram-positive rods. 2D echo ordered. Start vancomycin 1 g x1 and pharmacy to dose also start Rocephin 2 g IV every 24 Objective Vital Signs / I&O: Vital Signs 05/29/18 12:00 05/29/18 12:29 05/29/18 13:00 Temperature 99.4 F Pulse Rate 73 80 96 H Respiratory Rate 16 19 21 Blood Pressure 118/64 121/58 L Pulse Oximetry 94 L 95 96 05/29/18 14:00 05/29/18 15:00 05/29/18 16:00 Temperature 99.7 F H Pulse Rate 83 68 72 Respiratory Rate 20 14 16 Blood Pressure 128/69 152/77 H 138/80 Pulse Oximetry 96 92 L 93 L 05/29/18 16:11 05/29/18 17:00 05/29/18 17:38 Temperature Pulse Rate 76 75 92 H Respiratory Rate 16 Blood Pressure 136/77 Pulse Oximetry 95 05/29/18 18:00 05/29/18 19:00 05/29/18 20:00 Temperature 98.3 F Pulse Rate 82 81 90 Respiratory Rate 18 21 27 H Blood Pressure 145/78 H 145/69 H 152/78 H Pulse Oximetry 94 L 93 L 95 05/29/18 21:00 05/29/18 22:00 05/29/18 23:00 Temperature Pulse Rate 82 77 86 Respiratory Rate 24 19 Blood Pressure 148/70 H 154/77 H 137/83 Pulse Oximetry 96 95 100 05/30/18 00:00 05/30/18 01:00 05/30/18 02:00 Temperature 98.9 F Pulse Rate 82 75 71 Respiratory Rate 21 21 23 Blood Pressure 141/77 H 141/73 H 151/75 H Pulse Oximetry 98 100 100 05/30/18 03:00 05/30/18 04:00 05/30/18 05:00 Temperature 98.5 F Pulse Rate 68 63 76 Respiratory Rate 21 15 19 Blood Pressure 157/86 H 153/87 H 157/82 H Pulse Oximetry 100 99 100 05/30/18 06:00 05/30/18 07:00 05/30/18 08:00 Temperature 98.8 F Pulse Rate 77 69 68 Respiratory Rate 16 15 14 Blood Pressure 172/84 H 155/88 H 158/80 H Pulse Oximetry 99 99 99 05/30/18 08:20 05/30/18 09:00 05/30/18 09:40 Temperature 98.5 F Pulse Rate 75 83 86 Respiratory Rate 26 H 22 Blood Pressure 168/86 H 154/81 H Pulse Oximetry 100 100 05/30/18 10:00 05/30/18 10:13 Temperature Pulse Rate 85 87 Respiratory Rate 22 Blood Pressure 152/80 H Pulse Oximetry 98 Intake & Output 05/29/18 05/30/18 05/30/18 18:59 06:59 18:59 Intake Total 2604 / 2604 825 / 825 500 / 500 Output Total 500 / 500 1030 / 1030 Balance 2104 / 2104 -205 / -205 500 / 500 Weight 87.5 kg Intake: IV 1784 / 1784 105 / 105 500 / 500 Sodium Chloride 3% Inj 500 ML @ 1579 / 1579 500 / 500 40 mls/hr IV.SIG CONT MELISSA Rx#: [id number] Ofirmev Inj 1,000 mg In 100 ml 100 / 100 @ 400 mls/hr IV.SIG ONCE ONE Rx #:[id number] Keppra Inj 500 MG In NS Inj 100 105 / 105 105 / 105 ML @ 400 mls/hr IV.SIG Q12H MELISSA Rx#:[id number] Oral 720 / 720 720 / 720 Tube Irrigant 100 / 100 Output: Urine 500 / 500 1030 / 1030 Other: Date of Last Bowel Movement 05/29/18 05/29/18 05/29/18 # Bowel Movements 3 Result Diagrams: 05/30/18 10:00 05/30/18 10:00 Objective Remarks: GEN: 57-year-old male lying in bed, GCS 14. Right gaze preference HEENT: Right gaze preference. Pupils are reactive. Oral cavity is dry. NECK: Supple. No JVD LUNGS: Air entry equal bilaterally no wheezes or crackles HEART: S1 and S2 normal, no murmurs. Blood pressure at goal ABDOMEN: Soft. Nontender EXTREMITIES: No pedal edema. NEUROLOGIC: Patient is oriented to person and intermittently to place. Right gaze preference. Somnolent but wakes up easily. GCS 14. Left hemiparesis present left facial droop. 4 out of 5 power in the left upper and lower extremity. Normal right upper and lower extremity Assessment and Plan - Problem List (1) Intracerebral hemorrhage Code(s): I61.9 - Nontraumatic intracerebral hemorrhage, unspecified Status: Acute (2) Intraventricular hemorrhage Code(s): I61.5 - Nontraumatic intracerebral hemorrhage, intraventricular Status: Acute (3) Coagulopathy Code(s): D68.9 - Coagulation defect, unspecified Status: Acute (4) Chronic anticoagulation Code(s): Z79.01 - halfway (current) use of anticoagulants Status: Acute (5) HTN (hypertension) Code(s): I10 - Essential (primary) hypertension Status: Chronic (6) Chronic deep vein thrombosis (DVT) Code(s): I82.509 - Chronic embolism and thrombosis of unspecified deep veins of unspecified lower extremity Status: Chronic - Assessment and Plan Plan: Plan: NEURO: Large right frontal intraparenchymal hematoma with intraventricular extension Mass-effect on the right frontal lobe, 5 mm midline shift to the left. Encephalopathy -S/p K-centra 2500 units x1 -Follow-up CT of the head 05/25, remained stable, MRI brain 05/27/2018 remains stable -No further clinical deterioration noted -Keep sodium more than 150, 3% saline at 60 mL/h. Use 23% saline as needed -Keppra 500 mg IV every 12 for seizure prophylaxis -If clinical deterioration plan for EVD -PT/OT/speech, Out of bed daily RESP: -DuoNeb every 2 hours as needed. IS, ezPAP -Aggressive pulmonary toilet CV: History of hypertension -3% saline to 60 mL/h -Cardene infusion to keep blood pressure less than 140/90, IV hydralazine as needed -Amlodipine 5 mg daily via NGT GI: -Tolerating tube feeds, IV Protonix -Speech pathology following : -Monitor renal function closely. HEME/ID: Fever Gram-positive bacteremia (pleomorphic gram-positive rods) Sepsis Chronic anticoagulation with apixaban History of DVT -4/4 bottles from 05/29/2018 pleomorphic gram-positive rods -Vancomycin 1 g IV x1 and pharmacy to dose. Rocephin 2 g IV every 24 hours -2D echo to rule out endocarditis -chest x-ray no acute infiltrate -Venous duplex shows occlusive DVT of the left lower extremity,. Left mid basilic vein thrombosis. -IR consult for IVC filter placement, until able to fully anticoagulate -Monitor CBC, coags -s/p K Centra 2500 units x1 on arrival to ICU -Follow-up coags at 12 PM ENDO: -Electrolyte replacement per protocol -Sliding scale insulin if needed PROPH: -Discontinue left SCDs/WILLIAN. Chemical DVT prophylaxis cleared by Dr. Ramesh. Heparin 5000 units subcu every 12. IV Protonix LINES: -Utilize peripheral IVs, central line if needed CC time 35 min Patient is a very critical with large intraparenchymal hemorrhage and intraventricular extension. He is at acute risk of respiratory neuro decompensation. He may need endotracheal intubation and emergency surgical intervention/EVD. Currently with severe sepsis Gram-positive bacteremia and also left lower extremity DVT.
[2018-05-30] MEDS: Vancomycin Inj 1,000 MG in Sodium Chlor 0.9% Inj 250 ML IV.SIG SCH (20:30)
[2018-05-30] MEDS: Acetaminophen 325 MG Tablet PO PRN (20:50)
[2018-05-30] MEDS: Melatonin 5 MG Tablet PO PRN (22:05)
[2018-05-31] MEDS: Vancomycin Inj 1,000 MG in Sodium Chlor 0.9% Inj 250 ML IV.SIG SCH ×3 (03:13→19:30)
[2018-05-31 05:07] LABS: Hematocrit 30.6 % (39.0-51.0); Hemoglobin 10.7 gm/dL (13.0-17.0); Mean Corpuscular Hemoglobin 32.6 pg (27.0-34.0); Mean Corpuscular Volume 93.2 fL (80.0-100.0); Mean Platelet Volume 8.5 fL (7.0-11.0); Platelet Count 103 th/mm3 (150-450); Red Blood Count 3.28 mil/mm3 (4.50-5.90); Red Cell Distribution Width 13.6 % (11.6-17.2); White Blood Count 2.7 th/mm3 (4.0-11.0)
[2018-05-31 05:33] LABS: Alanine Aminotransferase 28 U/L (12-78); Albumin 2.2 g/dL (3.4-5.0); Anion Gap 5 meq/L (5-15); Aspartate Aminotransferase 19 U/L (15-37); Blood Urea Nitrogen 11 mg/dL (7-18); Calcium 7.7 mg/dL (8.5-10.1); Carbon Dioxide 25.8 meq/L (21.0-32.0); Chloride 114 meq/L (98-107); Glomerular Filtration Rate Greater Than 89 mL/min (>89); Glucose,Random 107 mg/dL (74-106); Magnesium 1.8 mg/dL (1.5-2.5); Potassium 3.6 meq/L (3.5-5.1); Sodium 145 meq/L (136-145)
[2018-05-31 05:35] LABS: Alkaline Phosphatase 83 U/L (45-117); Total Protein 6.4 g/dL (6.4-8.2)
--- NOTE | 2018-05-31 07:42 | XR ---
EXAM DATE: 05/31/2018 6:34 AM EST AGE/SEX: 57 years / Male INDICATIONS: Respiratory failure. CLINICAL DATA: This is the patient's subsequent encounter. Patient reports that signs and symptoms h ave been present for 1 week and indicates a pain score of Nonresponsive. MEDICAL/SURGICAL HISTORY: Hypertension. Lupus. Deep venous thrombosis. None. COMPARISON: [facility] – [place], [place], CHEST 1V SINGLE AP, 05/29/2018. . FINDINGS: A single AP view of the chest demonstrates slight interstitial densities. Heart mildly enlarged. Naso gastric tube and left subclavian central line unchanged. The cardiomediastinal contours are unremarka ble. Osseous structures are intact. CONCLUSION: Cardiomegaly with interstitial densities likely interstitial edema. Electronically signed by: Aquilino Taylor MD Board Certified Radiologist 05/31/2018 6:36 AM EST
--- NOTE | 2018-05-31 08:41 | ECHRPT ---
Indication: SEPSIS POSS ENDOCARDITIS CONCLUSIONS Normal left ventricular size. Wall thickness is normal. Nonobstructive prominent basal hypertrophy is present consistent with sigmoid septum. The left ventricular systolic function is normal with an estimated ejection fraction in the range of 55-60%. The left atrial size is [id number] dilated. Calcification of both mitral valve leaflets. Moderate mitral valve regurgitation. There is mild tricuspid valve regurgitation. The estimated pulmonary arterial pressure is 64mmHg. The inferior vena cava (IVC) is normal in size. There is less than 50% respiratory change in dimension of the inferior vena cava (abnormal). Eccentric mitral regurgitation with thickened mitral valve leaflets, though no vegetation seen, liliana ot rule out endocarditis, consider ARMOND if clinically indicated. BP: / HR: Rhythm: MEASUREMENTS (Male / Female) Normal Values Technical Quality: 2D ECHO LV Diastolic Diameter PLAX 5.4 cm 4.2 - 5.9 / 3.9 - 5.3 cm LV Systolic Diameter PLAX 3.9 cm IVS Diastolic Thickness 1.1 cm 0.6 - 1.0 / 0.6 - 0.9 cm LVPW Diastolic Thickness 1.2 cm 0.6 - 1.0 / 0.6 - 0.9 cm LV Relative Wall Thickness 0.4 RV Internal Dim ED PLAX 3.8 cm LVOT Diameter 2.2 cm Aortic Root Diameter 3.3 cm LA Systolic Diameter LX 4.7 cm 3.0 - 4.0 / 2.7 - 3.8 cm M-MODE AV Cusp Separation MM 1.9 cm DOPPLER AV Peak Velocity 189.0 cm/s AV Peak Gradient 14.3 mmHg LVOT Peak Velocity 114.0 cm/s LVOT Peak Gradient 5.2 mmHg AV Area Cont Eq pk 2.3 cm MR Peak Velocity 706.0 cm/s MR Peak Gradient 199.4 mmHg MR ERO PISA 0.3 cm MR Regurgitant Volume PISA 69.3 cm Mitral E Point Velocity 154.0 cm/s Mitral A Point Velocity 101.0 cm/s Mitral E to A Ratio 1.5 LV E' Lateral Velocity 17.2 cm/s Mitral E to LV E' Lateral Ratio 9.0 LV E' Septal Velocity 10.3 cm/s Mitral E to LV E' Septal Ratio 15.0 TR Peak Velocity 349.0 cm/s TR Peak Gradient 48.7 mmHg Right Atrial Pressure 10.0 mmHg Pulmonary Artery Systolic Pressu 58.7 mmHg Right Ventricular Systolic Press 58.7 mmHg PV Peak Velocity 144.0 cm/s PV Peak Gradient 8.3 mmHg FINDINGS LEFT VENTRICLE Normal left ventricular size. Wall thickness is normal. Nonobstructive prominent basal hypertrophy is present consistent with sigmoid septum. The left ventricular systolic function is normal with an estimated ejection fraction in the range of 55-60%. RIGHT VENTRICLE Normal right ventricular size and systolic function. LEFT ATRIUM The left atrial size is [id number] dilated. RIGHT ATRIUM The right atrial size is normal. ATRIAL SEPTUM Normal atrial septal thickness without atrial level shunting by limited color doppler interrogation. AORTA The aortic root and proximal ascending aorta are normal in size on limited imaging. MITRAL VALVE Calcification of both mitral valve leaflets. Moderate mitral valve regurgitation. AORTIC VALVE Trileaflet aortic valve. No aortic valve stenosis or regurgitation. TRICUSPID VALVE There is mild tricuspid valve regurgitation. The estimated pulmonary arterial pressure is 64mmHg. PULMONARY VALVE No pulmonary valve regurgitation or stenosis. VESSELS The inferior vena cava (IVC) is normal in size. There is less than 50% respiratory change in dimension of the inferior vena cava (abnormal). PERICARDIUM No pericardial effusion. Tiago Shields MD (Electronically Signed) Final Date:31 May 2018 08:40
[2018-05-31] MEDS: Pantoprazole Inj 40 MG Vial IV.PUSH SCH (08:47)
[2018-05-31] MEDS: Heparin - SQ 10,000 UNITS/ML Vial SQ SCH ×3 (08:48→20:39)
[2018-05-31] MEDS: Senna/Docusate Sodium 8.6/50 MG Tablet PO SCH ×2 (08:49→20:40)
--- NOTE | 2018-05-31 09:21 | P.PNCC ---
Subjective Subjective Remarks/Hospital Course: Patient is a 57-year-old male with past medical history significant for hypertension, chronic Eliquis use for DVT, who presented to [facility] with 3-day history of generalized weakness altered mental status and left -sided weakness. Patient is somnolent and slightly confused cannot give detailed history. Further workup in the [facility] included CT head which showed that patient had a 5.5 x 4.4 cm right frontal intraparenchymal hematoma with intraventricular extension into the right frontal horn. There was blood in the lateral third and fourth ventricle with mass-effect on the right frontal lobe, 5 mm midline shift to the left. Additional 9 x 10 mm intraparenchymal hematoma in the left posterior frontal cortex. Neurosurgery at [place] was contacted and Dr. Ramesh accepted the patient. Patient was transferred to [facility] where I evaluated him. Lab work at [facility] showed PTT 69.5, PT 14.8, INR 1.31. Patient takes Eliquis for DVT On my evaluation patient is lying on the bed slightly somnolent. But wakes up easily, he is AOx2. He has 4 out of 5 power on the left upper and lower extremity, has left facial droop. Otherwise patient is oriented to person and time. Stat neurosurgery consult ordered and I reviewed the films with Dr. Ramesh. I have also ordered 2500 unit of K Centra to reverse apixaban (per patient last dose was yesterday afternoon which is approximately 18 hours ago). Follow coags. CT of the head follow-up at 8 AM. Patient is very critical, at risk of acute neuro decompensation. Further recommendation for any surgical intervention versus medical management based on repeat imaging 05/26/18: Patient lying in bed opens eyes follows commands. Neuro exam remains unchanged. No surgical intervention is planned at this time. Will get PT OT and speech eval 05/27/18: Overnight nurse reported some mental status changes including increased somnolence and confusion. Currently on my exam he is back to his baseline. Persistent left hemiparesis with some expressive aphasia, however oriented to person and somewhat to place. Sodium still at 138 will target sodium closer to 150 start 3% saline. MRI brain yesterday shows redemonstration of a large right frontoparietal intraparenchymal hematoma measuring up to 5.2 cm with prominent surrounding vasogenic edema resulting in 4 mm right to left subfalcine shift. Stable intraventricular blood. Redemonstration of 8 mm intraparenchymal hematoma in the left parietal high convexities without significant mass effect at this time. LATE NOTE 05/28/18: Neuro status still waxing and waning. Currently improved after increasing the hypertonic saline and targeting sodium closer to 150. No surgical intervention planned at this time. Physical therapy consult ordered 05/29/18: Mental status remains stable. Wakes up easily follows commands oriented x2. Spiked fever up to 101 yesterday. Tylenol given cooling blanket ordered. No obvious source of fever however will check cultures. Chest x-ray no infiltrate. Neuro fever more likely. Given history of DVT will check venous Doppler bilateral upper and lower extremities. Start DVT prophylaxis with subcu heparin 05/30/18: Neurologically remains stable no fever. Overall mentation seems to be improving. However blood cultures from yesterday all 4 bottles positive for pleomorphic gram-positive rods. 2D echo ordered. Start vancomycin 1 g x1 and pharmacy to dose also start Rocephin 2 g IV every 24 05/31/18: Remains neurologically improving, moving all 4 extremities, alert awake and oriented. Afebrile. Occlusive DVT of the left common femoral vein, will consult hematology oncology and IR for possible IVC filter placement which will be complicated due to current bacteremia. Objective Vital Signs / I&O: Vital Signs 05/30/18 09:40 05/30/18 10:00 05/30/18 10:13 Temperature Pulse Rate 86 85 87 Respiratory Rate 22 22 Blood Pressure 154/81 H 152/80 H Pulse Oximetry 100 98 05/30/18 11:00 05/30/18 12:00 05/30/18 13:00 Temperature 98.8 F Pulse Rate 76 83 92 H Respiratory Rate 15 16 30 H Blood Pressure 158/85 H 146/90 H 155/86 H Pulse Oximetry 98 97 95 05/30/18 14:00 05/30/18 15:00 05/30/18 15:59 Temperature Pulse Rate 72 87 78 Respiratory Rate 15 25 H Blood Pressure 153/91 H 154/94 H Pulse Oximetry 95 98 05/30/18 16:00 05/30/18 17:00 05/30/18 18:00 Temperature 98.3 F Pulse Rate 82 83 70 Respiratory Rate 24 21 16 Blood Pressure 159/94 H 151/96 H 155/97 H Pulse Oximetry 99 100 100 05/30/18 19:00 05/30/18 20:00 05/30/18 21:00 Temperature 98.6 F Pulse Rate 71 69 84 Respiratory Rate 15 16 16 Blood Pressure 166/92 H 160/91 H 161/91 H Pulse Oximetry 99 99 100 05/30/18 22:00 05/30/18 23:00 05/31/18 00:00 Temperature 98.9 F Pulse Rate 80 75 65 Respiratory Rate 19 20 16 Blood Pressure 141/85 H 143/85 H 152/85 H Pulse Oximetry 100 100 96 05/31/18 01:00 05/31/18 02:00 05/31/18 03:00 Temperature Pulse Rate 63 71 66 Respiratory Rate 13 17 20 Blood Pressure 140/87 145/88 H 191/86 H Pulse Oximetry 96 96 98 05/31/18 03:02 05/31/18 04:00 05/31/18 05:00 Temperature 98.1 F Pulse Rate 66 77 62 Respiratory Rate 20 24 12 Blood Pressure 156/82 H 159/83 H 167/80 H Pulse Oximetry 99 100 99 05/31/18 06:00 Temperature Pulse Rate 75 Respiratory Rate 17 Blood Pressure 152/82 H Pulse Oximetry 100 Intake & Output 05/30/18 05/31/18 05/31/18 18:59 06:59 18:59 Intake Total 945 / 945 1685 / 1685 105 / 105 Output Total 900 / 900 Balance 945 / 945 785 / 785 105 / 105 Weight 89.1 kg Intake: IV 705 / 705 1205 / 1205 105 / 105 Sodium Chloride 3% Inj 500 ML @ 500 / 500 500 / 500 40 mls/hr IV.SIG CONT MELISSA Rx#: [id number] KCl 40 mEq Premix Inj 40 meq In 100 / 100 100 ml @ 25 mls/hr IV.SIG Q2H PRN Rx#:[id number] Vancomycin Inj 1,000 MG In NS 500 / 500 Inj 250 ML @ 250 mls/hr IV.SIG Q8H MELISSA Rx#:[id number] Rocephin Inj 2,000 MG In NS Inj 100 / 100 100 ML @ 200 mls/hr IV.SIG Q24H MELISSA Rx#:[id number] Keppra Inj 500 MG In NS Inj 100 105 / 105 105 / 105 105 / 105 ML @ 400 mls/hr IV.SIG Q12H [facility] Rx#:[id number] Oral 240 / 240 480 / 480 Output: Urine 900 / 900 Other: Date of Last Bowel Movement 05/29/18 05/29/18 Result Diagrams: 05/31/18 04:05 05/31/18 04:05 Objective Remarks: GEN: 57-year-old male lying in bed, GCS 14. Right gaze preference resolved HEENT: Right gaze preference resolved. Pupils are reactive. Oral cavity is dry. NECK: Supple. No JVD LUNGS: Air entry equal bilaterally no wheezes or crackles HEART: S1 and S2 normal, no murmurs. Blood pressure at goal ABDOMEN: Soft. Nontender EXTREMITIES: No pedal edema. NEUROLOGIC: Patient is oriented to person and intermittently to place. Right gaze preference. Somnolent but wakes up easily. GCS 14. Left hemiparesis improved, left facial droop improving. 4 out of 5 power in the left upper and lower extremity. Normal right upper and lower extremity Assessment and Plan - Problem List (1) Intracerebral hemorrhage Code(s): I61.9 - Nontraumatic intracerebral hemorrhage, unspecified Status: Acute (2) Intraventricular hemorrhage Code(s): I61.5 - Nontraumatic intracerebral hemorrhage, intraventricular Status: Acute (3) Coagulopathy Code(s): D68.9 - Coagulation defect, unspecified Status: Acute (4) Chronic anticoagulation Code(s): Z79.01 - long term care pharmacist (current) use of anticoagulants Status: Acute (5) HTN (hypertension) Code(s): I10 - Essential (primary) hypertension Status: Chronic (6) Chronic deep vein thrombosis (DVT) Code(s): I82.509 - Chronic embolism and thrombosis of unspecified deep veins of unspecified lower extremity Status: Chronic - Assessment and Plan Plan: Plan: NEURO: Large right frontal intraparenchymal hematoma with intraventricular extension Mass-effect on the right frontal lobe, 5 mm midline shift to the left. Encephalopathy -S/p K-centra 2500 units x1 -Follow-up CT of the head 05/25, remained stable, MRI brain 05/27/2018 remains stable -No further clinical deterioration noted -Neurologically improving, will stop 3% sodium chloride -Keppra 500 mg IV every 12 for seizure prophylaxis -If clinical deterioration plan for EVD however at this point no signs of hydrocephalus -PT/OT/speech, Out of bed daily RESP: -DuoNeb every 2 hours as needed. IS, ezPAP -Aggressive pulmonary toilet CV: History of hypertension - DC 3% saline t -Cardene infusion to keep blood pressure less than 140/90, IV hydralazine as needed -Amlodipine 5 mg daily p.o. GI: -Tolerating diet -Speech pathology following and appreciated : -Monitor renal function closely. HEME/ID: Fever Gram-positive bacteremia (pleomorphic gram-positive rods) Sepsis Chronic anticoagulation with apixaban History of DVT -07/08 bottles from 05/29/2018 pleomorphic gram-positive rods -Vancomycin 1 g IV x1 and pharmacy to dose. Rocephin 2 g IV every 24 hours -2D echo to rule out endocarditis -chest x-ray no acute infiltrate -Venous duplex shows occlusive DVT of the left lower extremity,. Left mid basilic vein thrombosis. -IR consult for IVC filter placement, until able to fully anticoagulate -Monitor CBC, coags -s/p K Centra 2500 units x1 on arrival to ICU -Follow-up coags at 12 PM -Blood cultures gram-positive rods, will consult infectious disease and continue broad-spectrum antibiotics as current -Considering ARMOND if ID agrees ENDO: -Electrolyte replacement per protocol -Sliding scale insulin if needed PROPH: -Discontinue left SCDs/WILLIAN. Chemical DVT prophylaxis cleared by Dr. Ramesh. Heparin 5000 units subcu every 12. IV Protonix LINES: -Utilize peripheral IVs, central line if needed Level 3
[2018-05-31] MEDS: Acetaminophen 325 MG Tablet PO PRN ×3 (10:52→23:27)
[2018-05-31] MEDS: hydrALAZINE HCl Inj 20 MG/ML Vial IV.PUSH PRN (11:06)
--- NOTE | 2018-05-31 13:22 | P.CONID ---
History of Present Illness Service: Infectious disease Consult date: 05/31/18 Requesting Physician: Roger Walker Reason for Consult: Evaluate patient with bacteremia Primary Care Provider: No Primary Care Physician Chief Complaint: ICH, left sided weakness History of Present Illness: Patient seen and examined. Records reviewed. Patient is a 57-year-old male, brought in to the hospital at [facility] complaining of 3-day history of generalized weakness, altered mental status, and he was noted to have left-sided weakness. In the ED he was found to have a right frontal intraparenchymal hematoma with intraventricular extension. There was some mass-effect on the right frontal lobe with a 5 mm midline shift to the left. There was also another intraparenchymal hematoma seen in the left posterior frontal cortex. Patient was transferred to [facility] for neurosurgical evaluation. Since admission he had some deterioration in his mentation, however imaging study showed the same. He was put on hypertonic saline, and it seems that his neurological status has stabilized. Patient has been in the hospital since May 25. On May 27 he started having low-grade fevers, and on May 29 he spiked. 2 blood cultures were drawn, and yesterday it was reported as growing pleomorphic gram- positive sivakumar. Patient has some low-grade fevers today. He has some frontal headache. Trans-thoracic echocardiogram is showing abnormality in the mitral valve with thickened leaflets, cannot rule out endocarditis. On further questioning, patient apparently has been having on and off fevers since around March. The first time he had fevers he went to an urgent care center, and at that time he has a lesion on 1 of his fingers, and he was given an antibiotic for infection on his finger. Most of the time his temperatures are between 992 100. The second time he had fevers he went to the urgent care center again, and he had some upper respiratory symptoms at that time, and he was apparently given doxycycline. The last time he had some upper respiratory symptoms again, and he was given amoxicillin which he took for about 6 days, he was not improving, so he went back to the urgent care center, and more workup was done at that time and it was decided that he did not have any respiratory infections so his antibiotic was stopped. This was about 3 weeks ago. Patient has not had any prior history of blood infection or endocarditis. He has not had any prior history of IV drug use. He has no prior history of skin infection , except the one in March on his finger. Infectious disease consultation has been requested to assist with evaluation and treatment of positive blood culture. Review of Systems Constitutional: Reports chills, Reports fever(s), Reports headache(s) Eyes: Denies discharge, Denies dry eyes Ears, Nose, Mouth, and Throat: Denies difficulty swallowing, Denies nasal discharge, Denies nasal obstruction, Denies sore throat Cardiovascular: Denies chest pain, Denies shortness of breath Respiratory: Denies chest congestion, Denies cough, Denies shortness of breath Gastrointestinal: Denies abdominal pain, Denies loose stools, Denies nausea, Denies pain with swallowing, Denies vomiting Genitourinary: Denies difficulty urinating, Denies painful urination Musculoskeletal: Reports muscle weakness Skin/Breast: Denies rash, Denies sores Neurologic: Reports localized weakness PMFSH - History History Provided By: Significant Other - Medical History Medical History: Medical History (Last Updated 05/31/18 @ 13:11 by Juli Sarah MD) DVT (deep venous thrombosis) Lupus (systemic lupus erythematosus) Raynaud phenomenon - Tobacco History Second Hand Smoke Exposure: No Tobacco Use In Past 30 Days: No Smoking Status: Former smoker Tobacco Type: Cigarettes - Alcohol History How Often Do You Have a Drink Containing Alcohol: Never - Substance Use History Substance History: No History of Abuse - Immunization History Tetanus Immunization: <5 Years Hx Influenza Vaccine This Season: Yes Medications and Allergies Active Medications: Active Medications Acetaminophen (Tylenol) 650 mg PO Q6H PRN PRN Reason: FEVER Last Admin: 05/31/18 10:52 Dose: 650 mg Al Hydroxide/Mg Hydroxide (Milk Of Lety Liq) 30 ml PO Q12H PRN PRN Reason: Mild Constipation Albuterol (Duoneb Neb (Prn)) 1 ampul NEB Q2HR NEB PRN PRN Reason: WHEEZING Bisacodyl (Dulcolax Supp) 10 mg RECTAL DAILY PRN PRN Reason: SEVERE CONSITIPATION Heparin Sodium (Porcine) (Heparin Inj) 5,000 units SQ Q12HR MELISSA Last Admin: 05/31/18 09:37 Dose: 5,000 units Hydralazine HCl (Apresoline Inj) 20 mg IV.PUSH Q4H PRN PRN Reason: sbp>150 Last Admin: 05/31/18 11:06 Dose: 20 mg Nicardipine HCl 25 mg/ Sodium (Chloride) 250 mls @ 50 mls/hr IV.CONT TITRATE PRN; Protocol PRN Reason: Per Protocol Levetiracetam 500 mg/ Sodium (Chloride) 105 mls @ 400 mls/hr IV.SIG Q12H MELISSA Last Infusion: 05/31/18 09:19 Dose: Infused Magnesium Sulfate 4 gm/ Sodium (Chloride) 100 mls @ 50 mls/hr IV.SIG UNSCH PRN PRN Reason: For Magnesium 0.9 - 1.1 mg/dL Magnesium Sulfate 2 gm/ Sodium (Chloride) 100 mls @ 50 mls/hr IV.SIG UNSCH PRN PRN Reason: For Magnesium 1.2 - 1.6 mg/dL Potassium Chloride (Kcl 40 Meq Premix Inj) 40 meq in 100 mls @ 25 mls/hr IV.SIG Q2H PRN PRN Reason: For Potassium 2.8 - 3.2 mEq/L Last Infusion: 05/31/18 06:14 Dose: Infused Potassium Chloride (Kcl 20 Meq Premix Inj) 20 meq in 100 mls @ 50 mls/hr IV.SIG Q2H PRN PRN Reason: For Potassium 3.3 - 3.5 mEq/L Potassium Chloride (Kcl 40 Meq Premix Inj) 40 meq in 100 mls @ 25 mls/hr IV.SIG UNSCH PRN PRN Reason: For Potassium 3.3 - 3.5 mEq/L Potassium Chloride (Kcl 20 Meq Premix Inj) 20 meq in 100 mls @ 50 mls/hr IV.SIG Q2H PRN PRN Reason: For Potassium 2.8 - 3.2 mEq/L Potassium Phosphate 30 mmol/ (Sodium Chloride) 260 mls @ 42 mls/hr IV.SIG UNSCH PRN PRN Reason: SEE LABEL COMMENTS Sodium Phosphate 30 mmol/ (Sodium Chloride) 260 mls @ 42 mls/hr IV.SIG UNSCH PRN PRN Reason: For Phosphorus < 2.5 mg/dL Ceftriaxone Sodium 2,000 mg/ (Sodium Chloride) 100 mls @ 200 mls/hr IV.SIG Q24H MELISSA Last Infusion: 05/31/18 11:35 Dose: Infused Vancomycin HCl 1,000 mg/ (Sodium Chloride) 250 mls @ 250 mls/hr IV.SIG Q8H MELISSA Last Infusion: 05/31/18 12:21 Dose: Infused Lactulose (Lactulose Liq) 30 ml PO DAILY PRN PRN Reason: SEVERE CONSITIPATION Lactulose (Lactulose Liq) 30 ml PO TID [facility] Last Admin: 05/31/18 12:22 Dose: Not Given Magnesium Oxide (Mag-Ox) 800 mg PO UNSCH PRN PRN Reason: For Magnesium 1.2 - 1.6 mg/dL Melatonin (Melatonin) 5 mg PO HS PRN PRN Reason: SLEEP Last Admin: 05/30/18 22:05 Dose: 5 mg Miscellaneous Information ([facility] [place] Info) 1 each OTHER ONCE ONE Stop: 05/31/18 18:46 Pantoprazole Sodium (Protonix Inj) 40 mg IV.PUSH DAILY [facility] Last Admin: 05/31/18 08:47 Dose: 40 mg Pharmacy Profile Note (Vancomycin Consult Pharmacy) 1 each OTHER UNSCH PRN PRN Reason: Pharmacy to dose Potassium Chloride (Kcl Liq) 40 meq PO UNSCH PRN PRN Reason: Potassium level 3.3-3.5 mEq/L Last Admin: 05/29/18 15:08 Dose: 40 meq Potassium Chloride (Kcl Liq) 40 meq PO UNSCH PRN PRN Reason: POTASSIUM LESS THAN 3.5 Potassium Phosphate (K-Phos Original) 2,000 mg PO Q4H PRN PRN Reason: Phosphorus Less Than 2.5 mg/dL Potassium Phosphate (K-Phos Original) 2,000 mg PO UNSCH PRN PRN Reason: SEE LABEL COMMENTS Senna/Docusate Sodium (Jocelyn-Colace) 2 tab PO BID [facility] Last Admin: 05/31/18 08:49 Dose: Not Given Sennosides (Senokot) 17.2 mg PO Q12H PRN PRN Reason: Moderate Constipation Sodium Chloride (Ns Flush) 2 ml IV.FLUSH BID [facility] Last Admin: 05/31/18 08:48 Dose: 2 ml Sodium Chloride (Ns Flush) 2 ml IV.FLUSH PRN PRN PRN Reason: FLUSH AFTER USING IV ACCESS Allergies Allergy/AdvReac Type Severity Reaction Status Date / Time No Known Allergies Allergy Verified 05/25/18 06:51 Home Medications Medication Instructions Recorded Confirmed Type apixaban [Eliquis] 1 tab PO BID 05/25/18 05/25/18 History hydroxychloroquine 200 mg PO DAILY 05/25/18 05/25/18 History pantoprazole 1 tab PO DAILY 05/25/18 05/25/18 History Exam Vital signs: Vital Signs 05/30/18 14:00 05/30/18 15:00 05/30/18 15:59 Temperature Pulse Rate 72 87 78 Respiratory Rate 15 25 H Blood Pressure 153/91 H 154/94 H Pulse Oximetry 95 98 05/30/18 16:00 05/30/18 17:00 05/30/18 18:00 Temperature 98.3 F Pulse Rate 82 83 70 Respiratory Rate 24 21 16 Blood Pressure 159/94 H 151/96 H 155/97 H Pulse Oximetry 99 100 100 05/30/18 19:00 05/30/18 20:00 05/30/18 21:00 Temperature 98.6 F Pulse Rate 71 69 84 Respiratory Rate 15 16 16 Blood Pressure 166/92 H 160/91 H 161/91 H Pulse Oximetry 99 99 100 05/30/18 22:00 05/30/18 23:00 05/31/18 00:00 Temperature 98.9 F Pulse Rate 80 75 65 Respiratory Rate 19 20 16 Blood Pressure 141/85 H 143/85 H 152/85 H Pulse Oximetry 100 100 96 05/31/18 01:00 05/31/18 02:00 05/31/18 03:00 Temperature Pulse Rate 63 71 66 Respiratory Rate 13 17 20 Blood Pressure 140/87 145/88 H 191/86 H Pulse Oximetry 96 96 98 05/31/18 03:02 05/31/18 04:00 05/31/18 05:00 Temperature 98.1 F Pulse Rate 66 77 62 Respiratory Rate 20 24 12 Blood Pressure 156/82 H 159/83 H 167/80 H Pulse Oximetry 99 100 99 05/31/18 06:00 05/31/18 07:00 05/31/18 07:47 Temperature Pulse Rate 75 63 73 Respiratory Rate 17 14 17 Blood Pressure 152/82 H 164/87 H 155/91 H Pulse Oximetry 100 99 99 05/31/18 08:00 05/31/18 08:06 05/31/18 09:00 Temperature 98 F Pulse Rate 79 72 67 Respiratory Rate 21 Blood Pressure Pulse Oximetry 100 05/31/18 09:32 05/31/18 09:50 05/31/18 10:00 Temperature Pulse Rate 72 80 79 Respiratory Rate 19 25 H 24 Blood Pressure 169/90 H 147/92 H 150/86 H Pulse Oximetry 100 100 100 05/31/18 10:28 05/31/18 11:00 05/31/18 11:14 Temperature Pulse Rate 75 72 81 Respiratory Rate 20 18 20 Blood Pressure 154/83 H 139/85 Pulse Oximetry 100 100 100 05/31/18 11:30 05/31/18 11:54 05/31/18 12:00 Temperature 98 F Pulse Rate 81 75 79 Respiratory Rate 22 25 H Blood Pressure 142/78 H 117/56 L Pulse Oximetry 100 99 Intake & Output 05/30/18 05/31/18 05/31/18 18:59 06:59 18:59 Intake Total 945 / 945 1685 / 1685 455 / 455 Output Total 900 / 900 Balance 945 / 945 785 / 785 455 / 455 Weight 89.1 kg Intake: IV 705 / 705 1205 / 1205 455 / 455 Sodium Chloride 3% Inj 500 ML @ 500 / 500 500 / 500 40 mls/hr IV.SIG CONT MELISSA Rx#: [id number] KCl 40 mEq Premix Inj 40 meq In 100 / 100 100 ml @ 25 mls/hr IV.SIG Q2H PRN Rx#:[id number] Vancomycin Inj 1,000 MG In NS 500 / 500 250 / 250 Inj 250 ML @ 250 mls/hr IV.SIG Q8H MELISSA Rx#:[id number] Rocephin Inj 2,000 MG In NS Inj 100 / 100 100 / 100 100 ML @ 200 mls/hr IV.SIG Q24H MELISSA Rx#:[id number] Keppra Inj 500 MG In NS Inj 100 105 / 105 105 / 105 105 / 105 ML @ 400 mls/hr IV.SIG Q12H MELISSA Rx#:[id number] Oral 240 / 240 480 / 480 Output: Urine 900 / 900 Other: Date of Last Bowel Movement 05/29/18 05/29/18 05/29/18 Narrative: Physical examination GENERAL: Patient is a well-nourished, well-developed male, awake and alert, not in respiratory distress. He is following commands, speech is clear SKIN: Warm and dry. No generalized rash, no ecchymoses and no evidence of embolic lesions. HEAD: Atraumatic. Normocephalic. No temporal wasting, or tenderness. EYES: [place] conjunctiva. No petechia or hemorrhage. Pupils equal, round and reactive to light. Extraocular movements full and intact. No scleral icterus. No injection or drainage. EARS, NOSE AND THROAT: Nose without bleeding or purulent nasal discharge. No sinus tenderness. Mucous membranes pink and moist. No oral lesions noted. No exudate. No oral thrush. NECK: Trachea midline. Supple and not tender, no meningeal signs CARDIOVASCULAR: Regular rate and rhythm. No murmurs, rubs or gallops heard RESPIRATORY: Clear to auscultation. Breath sounds equal bilaterally. No rales , wheezing or rhonchi ABDOMEN: Soft, non-tender, nondistended. Bowel sounds present and normoactive. No guarding. No rebound. No organomegaly. EXTREMITIES: No clubbing, cyanosis, or edema. No joint effusion, has good ROM. No calf tenderness. Well perfused and warm. NEUROLOGICAL: Awake and alert. Cranial nerves grossly intact. LUE weaker compared to the RLE PSYCHIATRIC: Flat affect, calm and cooperative. LINE: No evidence of infection Results - Labs CBC & Chem 7: 05/31/18 04:05 05/31/18 04:05 Labs: Laboratory Results - last 24 hr 05/30/18 05/31/18 05/31/18 23:00 04:05 04:05 WBC 2.7 L RBC 3.28 L Hgb 10.7 L Hct 30.6 L MCV 93.2 MCH 32.6 MCHC 35.0 RDW 13.6 Plt Count 103 L MPV 8.5 Sodium 144 145 Potassium 3.6 Chloride 114 H Carbon Dioxide 25.8 Anion Gap 5 BUN 11 Creatinine 0.67 Estimated GFR Greater than 89 Random Glucose 107 H Calcium 7.7 L Magnesium 1.8 Total Bilirubin 0.6 AST 19 ALT 28 Alkaline Phosphatase 83 Total Protein 6.4 Albumin 2.2 L - Imaging Impressions Chest X-Ray 05/31/18 06:00 CONCLUSION: Cardiomegaly with interstitial densities likely interstitial edema. Head CTA 05/26/18 00:00 CONCLUSION: 1. See the MRI of the brain reported separately. 2. Unremarkable CTA. . . Head MRI 05/26/18 00:00 CONCLUSION: 1. Redemonstration of a large right frontoparietal mid to high convexity intraparenchymal hematoma measuring up to 5.2 cm with prominent surrounding vasogenic edema resulting in 4 mm right to left subfalcine shift. 2. Blood products extend to the ventricles with stable borderline ventricle size. 3. Redemonstration of 8 mm intraparenchymal hematoma in the left parietal high convexities without significant mass effect at this time. 4. No definitive abnormal enhancing mass is demonstrated. Extent of hemorrhage and associated abnormality can obscure a more subtle mass. Neck CTA 05/26/18 00:00 CONCLUSION: 1. Patent carotid arteries and vertebral arteries. Abdomen X-Ray 05/27/18 09:54 CONCLUSION: Dobbhoff feeding tube coiled in the stomach. Head CT 05/27/18 12:31 CONCLUSION: 1. 4.6 cm right frontal hemorrhage and 8mm left parietal hemorrhage are relatively stable. Tiny new focus of hemorrhage near the vertex on the left and slight increase in hemorrhage in the lateral ventricles since May 25. Fourth ventricular hemorrhage has decreased. Ventricular size is stable. . . Venous Doppler Study 05/29/18 00:00 CONCLUSION: 1. Occlusive DVT of the left common femoral vein and superficial femoral vein diffusely. 2. No evidence of DVT in the right lower extremity. Chest X-Ray 05/31/18 06:00 CONCLUSION: Cardiomegaly with interstitial densities likely interstitial edema. Assessment and Plan - Plan Impression Sepsis, has (+) BC with pleomorphic GPR, source? 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
[2018-05-31] MEDS ORDERED: Pharmacy Ordered Lab Info OTHER ONE (18:45)
[2018-05-31] MEDS: Melatonin 5 MG Tablet PO PRN (20:39)
--- NOTE | 2018-06-01 02:42 | MB ---
cc: Arti Melton MD DATE: 05/31/2018 REASON FOR CONSULTATION: Consult requested by Dr. Walker, cabbage salter, for recommendations for Left leg DVT in a patient who has intracranial hemorrhage. HISTORY OF PRESENT ILLNESS: Carroll is a pleasant 57-year-old male. He is a winter visitor from [place]. He was diagnosed with DVT of the left lower extremity about 8 years ago. This was incidentally found when he was undergoing workup for varicose vein. The patient was treated with Xarelto. He had irina ladderman in [place] at that time. According to the , they could not find the reason for the blood clot in spite of extensive tests. After a aizl-npl-l-half being on Xarelto, repeat Doppler study showed persistent DVT of the left lower extremity which has become calcified. He was advised to continue the blood thinner. He was on Xarelto. About about a gwgj-yys-b-half ago, it was switched to Eliquis 5 mg twice a day as patient was having side effects from Xarelto. The patient is visiting [place] for the winter. He lives in the [facility]. Recently he has gone to the urgent care center for fever. He was treated with antibiotics. However, his fever did not resolve. He went again to the urgent care and different antibiotic was given, but his symptoms remained the same. The patient developed weakness of the left side of the body, and it appears that he was having possible stroke. His called 911. He was brought in to emergency room at [facility]. He underwent further workup and was found to have intracranial hemorrhage. He was transferred to [facility] to be evaluated by neurosurgeon. Conservative management has been recommended. Eliquis has been stopped. He had a repeat Doppler study, which shows persistent thrombosis of the left femoral vein. It is unclear whether this is acute or chronic. No previous studies are available to compare with. I have been asked to make recommendation for anticoagulation. According to the patient's , his mental status is improving. He is able to get up and walk. The patient has received Kcentra in the emergency room. His blood cultures are positive. He has pleomorphic gram-positive rods in 4/4 bottles. He has sepsis syndrome. Infectious disease has been consulted. They are managing the antibiotics. PAST MEDICAL HISTORY: Left leg DVT unprovoked, diagnosed 8 years ago. Lupus. GERD PAST SURGICAL HISTORY: None. ALLERGIES: NONE. MEDICATIONS PRIOR TO COMING TO HOSPITAL: Eliquis, hydroxychloroquine, pantoprazole. FAMILY HISTORY: No family history of thromboembolic disease. SOCIAL HISTORY: The patient is , does not smoke cigarettes, does not drink alcohol. He lives in [place] and spent winter in [place] PHYSICAL EXAMINATION: GENERAL: He is a well-developed white male, in no apparent distress. VITAL SIGNS: Temperature 98. Heart rate is 76. Blood pressure is 141/89. HEAD, EYES, EARS, NOSE, AND THROAT: Pupils equal, round, reactive to light and accommodation, extraocular movements intact. Anicteric. No oral lesions noted. No thrush noted. NECK: Supple. No JVD. No masses noted. LUNGS: Clear. No wheezing, rhonchi, or rales. HEART: Regular rate and rhythm. No murmur heard. ABDOMEN: Soft and nontender. No hepatosplenomegaly. No abnormal bowel sounds. No guarding or rigidity noted. EXTREMITIES: No pedal edema. No cyanosis, no clubbing. NEUROLOGIC: Awake, alert, oriented x 3. Sensory and motor seem to be intact. SKIN: No bruises or petechiae noted. LYMPH NODES: No cervical, supraclavicular, or axillary lymphadenopathy noted. BACK: There is no spinal tenderness noted. ASSESSMENT: 1. History of unprovoked deep vein thrombosis of the left lower extremity diagnosed 8 years ago. Initially, he was on Xarelto until a year or tszd-ubf-o-half ago, was switched over to Eliquis. 2. Intracranial hemorrhage. 3. Persistent left femoral deep vein thrombosis, which is occlusive. Most likely chronic. 4. Gram-positive sivakumar sepsis. PLAN: I have reviewed his available records. I have discussed the case with the cabbage salter, Dr. Walker. My recommendation is for IVC filter placement. However, due to the sepsis, risks of placing IVC filter outweighed the benefits. It appears that the left leg DVT is chronic according to description from the patient's . She will try to get records from ladderman or primary doctor from [place] tomorrow. I do not know whether he had hypercoagulable workup done in the past. He was evaluated by ladderman 8 years ago and I believe he must have hypercoagulable test and recommendation was for lifelong anticoagulation. The patient cannot have any further anticoagulation due to intracranial bleeding. He is a candidate for IVC filter, but his infection needs to be cleared before we can ask interventional radiologist to put the filter. I have discussed the case with the patient and his . His has asked several questions and these have been answered to her satisfaction. Thank you for asking my opinion. MD YOLANDA Corbett/martha/elier , 11:28 PM , 11:46 PM NORM
[2018-06-01] MEDS: Vancomycin Inj 1,000 MG in Sodium Chlor 0.9% Inj 250 ML IV.SIG SCH ×4 (03:04→18:59)
--- NOTE | 2018-06-01 05:12 | P.PNIM ---
Subjective Interval history: Consulted by [facility] for transfer of care and med mgt. Chart reviewed. Seen with family and infectious disease. Patient has no complaints denies headache or dizziness. Awaiting for ARMOND Physical Exam Vital signs: Vital Signs 05/31/18 06:00 05/31/18 07:00 05/31/18 07:47 Temperature Pulse Rate 75 63 73 Respiratory Rate 17 14 17 Blood Pressure 152/82 H 164/87 H 155/91 H Pulse Oximetry 100 99 99 05/31/18 08:00 05/31/18 08:06 05/31/18 09:00 Temperature 98 F Pulse Rate 79 72 67 Respiratory Rate 21 Blood Pressure Pulse Oximetry 100 05/31/18 09:32 05/31/18 09:50 05/31/18 10:00 Temperature Pulse Rate 72 80 79 Respiratory Rate 19 25 H 24 Blood Pressure 169/90 H 147/92 H 150/86 H Pulse Oximetry 100 100 100 05/31/18 10:28 05/31/18 11:00 05/31/18 11:14 Temperature Pulse Rate 75 72 81 Respiratory Rate 20 18 20 Blood Pressure 154/83 H 139/85 Pulse Oximetry 100 100 100 05/31/18 11:30 05/31/18 11:54 05/31/18 12:00 Temperature 98 F Pulse Rate 81 75 79 Respiratory Rate 22 25 H Blood Pressure 142/78 H 117/56 L Pulse Oximetry 100 99 05/31/18 12:30 05/31/18 13:00 05/31/18 13:30 Temperature Pulse Rate 77 79 75 Respiratory Rate 24 20 17 Blood Pressure 106/60 137/79 146/79 H Pulse Oximetry 99 99 100 05/31/18 13:42 05/31/18 14:00 05/31/18 14:30 Temperature Pulse Rate 94 H 79 72 Respiratory Rate 19 12 Blood Pressure 159/80 H 139/85 Pulse Oximetry 100 99 05/31/18 15:00 05/31/18 15:30 05/31/18 15:31 Temperature Pulse Rate 68 72 73 Respiratory Rate 13 21 19 Blood Pressure 133/82 144/92 H 145/87 H Pulse Oximetry 100 98 97 05/31/18 16:00 05/31/18 16:01 05/31/18 16:31 Temperature 97.8 F Pulse Rate 72 71 69 Respiratory Rate 18 19 17 Blood Pressure 153/92 H 145/92 H Pulse Oximetry 100 99 99 05/31/18 17:00 05/31/18 17:01 05/31/18 17:31 Temperature Pulse Rate 67 67 68 Respiratory Rate 19 22 19 Blood Pressure 150/93 H 189/102 H Pulse Oximetry 100 100 100 05/31/18 17:35 05/31/18 18:00 05/31/18 18:01 Temperature Pulse Rate 67 67 66 Respiratory Rate 19 16 20 Blood Pressure 151/92 H 159/96 H Pulse Oximetry 100 100 100 05/31/18 18:31 05/31/18 19:00 05/31/18 19:01 Temperature Pulse Rate 61 63 64 Respiratory Rate 12 13 13 Blood Pressure 153/88 H 134/95 H Pulse Oximetry 99 99 99 05/31/18 19:31 05/31/18 20:00 05/31/18 20:01 Temperature 98.0 F Pulse Rate 64 67 68 Respiratory Rate 14 17 16 Blood Pressure 140/88 150/92 H Pulse Oximetry 99 100 100 05/31/18 20:31 05/31/18 21:00 05/31/18 21:01 Temperature Pulse Rate 67 71 70 Respiratory Rate 20 17 17 Blood Pressure 164/95 H 133/80 Pulse Oximetry 99 100 100 05/31/18 21:31 05/31/18 22:00 05/31/18 22:01 Temperature Pulse Rate 73 80 76 Respiratory Rate 19 19 30 H Blood Pressure 147/85 H 141/89 H Pulse Oximetry 99 100 100 05/31/18 22:31 05/31/18 23:00 05/31/18 23:01 Temperature Pulse Rate 72 68 72 Respiratory Rate 24 19 21 Blood Pressure 129/88 150/90 H Pulse Oximetry 100 98 98 05/31/18 23:31 06/01/18 00:00 06/01/18 00:01 Temperature Pulse Rate 68 63 67 Respiratory Rate 21 15 17 Blood Pressure 121/64 151/93 H Pulse Oximetry 100 100 100 06/01/18 00:31 06/01/18 01:00 06/01/18 01:01 Temperature Pulse Rate 55 L 61 61 Respiratory Rate 12 13 13 Blood Pressure 120/67 122/71 Pulse Oximetry 100 99 99 06/01/18 01:31 06/01/18 02:00 06/01/18 02:01 Temperature Pulse Rate 65 56 L 59 L Respiratory Rate 13 12 12 Blood Pressure 154/88 H 153/86 H Pulse Oximetry 100 100 100 06/01/18 02:31 06/01/18 03:00 06/01/18 03:01 Temperature Pulse Rate 77 68 67 Respiratory Rate 16 14 16 Blood Pressure 139/94 H 145/93 H Pulse Oximetry 99 100 100 Intake & Output 05/31/18 05/31/18 06/01/18 06:59 18:59 06:59 Intake Total 1685 / 1685 455 / 455 355 / 355 Output Total 900 / 900 600 / 600 Balance 785 / 785 -145 / -145 355 / 355 Weight 89.1 kg Intake: IV 1205 / 1205 455 / 455 355 / 355 Sodium Chloride 3% Inj 500 ML @ 500 / 500 40 mls/hr IV.SIG CONT MELISSA Rx#: [id number] KCl 40 mEq Premix Inj 40 meq In 100 / 100 100 ml @ 25 mls/hr IV.SIG Q2H PRN Rx#:[id number] Vancomycin Inj 1,000 MG In NS 500 / 500 250 / 250 250 / 250 Inj 250 ML @ 250 mls/hr IV.SIG Q8H MELISSA Rx#:[id number] Rocephin Inj 2,000 MG In NS Inj 100 / 100 100 ML @ 200 mls/hr IV.SIG Q24H MELISSA Rx#:[id number] Keppra Inj 500 MG In NS Inj 100 105 / 105 105 / 105 105 / 105 ML @ 400 mls/hr IV.SIG Q12H MELISSA Rx#:[id number] Oral 480 / 480 Output: Urine 900 / 900 600 / 600 Other: Date of Last Bowel Movement 05/29/18 05/29/18 05/29/18 Narrative: GEN: 57-year-old male lying in bed, GCS 14. Right gaze preference resolved LUNGS: Air entry equal bilaterally no wheezes or crackles HEART: S1 and S2 normal, no murmurs. ABDOMEN: Soft. Nontender EXTREMITIES: No pedal edema. NEUROLOGIC: Patient is oriented to person and intermittently to place. Awake and alert. Left hemiparesis improved, left facial droop improving. 4 out of 5 power in the left upper and lower extremity. Normal right upper and lower extremity Urinary Catheter Management Condom: Cath placed during this visit: no Results Labs CBC & Chem 7: 05/31/18 04:05 06/01/18 04:45 Imaging Imaging: ITS Impressions Head CTA 05/26/18 00:00 CONCLUSION: 1. See the MRI of the brain reported separately. 2. Unremarkable CTA. . . Head MRI 05/26/18 00:00 CONCLUSION: 1. Redemonstration of a large right frontoparietal mid to high convexity intraparenchymal hematoma measuring up to 5.2 cm with prominent surrounding vasogenic edema resulting in 4 mm right to left subfalcine shift. 2. Blood products extend to the ventricles with stable borderline ventricle size. 3. Redemonstration of 8 mm intraparenchymal hematoma in the left parietal high convexities without significant mass effect at this time. 4. No definitive abnormal enhancing mass is demonstrated. Extent of hemorrhage and associated abnormality can obscure a more subtle mass. Neck CTA 05/26/18 00:00 CONCLUSION: 1. Patent carotid arteries and vertebral arteries. Abdomen X-Ray 05/27/18 09:54 CONCLUSION: Dobbhoff feeding tube coiled in the stomach. Head CT 05/27/18 12:31 CONCLUSION: 1. 4.6 cm right frontal hemorrhage and 8mm left parietal hemorrhage are relatively stable. Tiny new focus of hemorrhage near the vertex on the left and slight increase in hemorrhage in the lateral ventricles since May 25. Fourth ventricular hemorrhage has decreased. Ventricular size is stable. . . Venous Doppler Study 05/29/18 00:00 CONCLUSION: 1. Occlusive DVT of the left common femoral vein and superficial femoral vein diffusely. 2. No evidence of DVT in the right lower extremity. Chest X-Ray 05/31/18 06:00 CONCLUSION: Cardiomegaly with interstitial densities likely interstitial edema. Assessment and Plan (1) Intracerebral hemorrhage: Code(s): I61.9 - Nontraumatic intracerebral hemorrhage, unspecified Status: Acute (2) Intraventricular hemorrhage: Code(s): I61.5 - Nontraumatic intracerebral hemorrhage, intraventricular Status: Acute (3) Coagulopathy: Code(s): D68.9 - Coagulation defect, unspecified Status: Acute (4) Chronic anticoagulation: Code(s): Z79.01 - FPC (current) use of anticoagulants Status: Acute (5) HTN (hypertension): Code(s): I10 - Essential (primary) hypertension Status: Chronic (6) Chronic deep vein thrombosis (DVT): Code(s): I82.509 - Chronic embolism and thrombosis of unspecified deep veins of unspecified lower extremity Status: Chronic Plan NEURO: Large right frontal intraparenchymal hematoma with intraventricular extension Mass-effect on the right frontal lobe, 5 mm midline shift to the left. Encephalopathy -S/p K-centra 2500 units x1 -Follow-up CT of the head 05/25, remained stable, MRI brain 05/27/2018 remains stable -No further clinical deterioration noted -Neurologically improving, will stop 3% sodium chloride -Keppra 500 mg IV every 12 for seizure prophylaxis -If clinical deterioration plan for EVD however at this point no signs of hydrocephalus -PT/OT/speech, Out of bed daily. Needs intensive rehab RESP: -DuoNeb every 2 hours as needed. IS, ezPAP -Aggressive pulmonary toilet CV: History of hypertension - DC 3% saline -Cardene infusion to keep blood pressure less than 140/90, IV hydralazine as needed GI: -Tolerating diet -Speech pathology following and appreciated : -Monitor renal function closely. HEME/ID: Fever Gram-positive bacteremia (pleomorphic gram-positive rods) Sepsis Chronic anticoagulation with apixaban History of DVT Hx SLE -/ bottles from 05/29/2018 pleomorphic gram-positive rods -Vancomycin 1 g IV x1 and pharmacy to dose. Rocephin 2 g IV every 24 hours -2D echo w abnomral MV Cards for ARMOND -chest x-ray no acute infiltrate -Venous duplex shows occlusive DVT of the left lower extremity, denies leg pain with no out swelling likely chronic. Left mid basilic vein thrombosis. -IR consult for IVC filter placement when cleared by ID -Monitor CBC, coags -s/p K Centra 2500 units x1 on arrival to ICU ENDO: -Electrolyte replacement per protocol -Sliding scale insulin if needed PROPH: -Discontinue left SCDs/WILLIAN. Chemical DVT prophylaxis cleared by Dr. Ramesh. Heparin 5000 units subcu every 12. IV Protonix LINES: -Utilize peripheral IVs, dc central line Progress Note: Quality VTE Deep Vein Thrombosis/Pulmonary Embolism Present on Admission: No _ (1) Chronic deep vein thrombosis (DVT) Qualifiers: Affected thrombotic vein of extremity: DVT location: Laterality: (2) Intracerebral hemorrhage Qualifiers: Cerebral hemorrhage location: Encounter type: Intracerebral hemorrhage etiology: Laterality: Loss of consciousness presence/duration: (3) HTN (hypertension) Qualifiers: Hypertension type:
[2018-06-01] MEDS: Acetaminophen 325 MG Tablet PO PRN ×2 (07:16→21:48)
[2018-06-01] MEDS: hydrALAZINE HCl Inj 20 MG/ML Vial IV.PUSH PRN (07:17)
[2018-06-01] MEDS: levETIRAcetam 500 MG Tablet PO SCH ×2 (08:40→21:45)
[2018-06-01] MEDS: Heparin - SQ 10,000 UNITS/ML Vial SQ SCH (08:40)
[2018-06-01] MEDS: Senna/Docusate Sodium 8.6/50 MG Tablet PO SCH ×2 (08:40→21:46)
--- NOTE | 2018-06-01 09:04 | MB ---
cc: Aristides Hester MD DATE: 06/01/2018 REASON FOR CONSULTATION: Transesophageal echocardiography. HISTORY OF PRESENT ILLNESS: The patient is a 57-year-old white male, a snowbird from [place], with a history of lupus, Raynaud phenomena, chronic left lower extremity deep venous thrombosis, hypertension, who presented initially to [facility] with neurological changes. He was found to have an acute right intracranial hemorrhage in the frontal lobe region and was transferred to [facility] for further neurosurgical/neurological care. The patient has been on apixaban chronically, and the apixaban was reversed upon admission. Blood cultures here in the hospital have been found to be positive for pleomorphic gram-positive rods. The patient sometime in the last 3 weeks had fevers up to as high as 102 degrees. He denies chest pain, shortness of breath, lightheadedness, syncope, near syncope, palpitations, change in chronic mild left greater than right lower extremity edema, paroxysmal nocturnal dyspnea. PAST MEDICAL HISTORY: 1. Lupus. 2. Raynaud disease. 3. Left lower extremity deep venous thrombosis initially diagnosed 8 years ago. 4. Hypertension. CARDIAC MEDICATIONS AT HOME: Apixaban 5 mg b.i.d. ALLERGIES: NO KNOWN DRUG ALLERGIES. FAMILY HISTORY: There is no significant family history of cardiac disease. SOCIAL HISTORY: The patient quit smoking 25 years ago. He denies alcohol abuse. REVIEW OF SYSTEMS: As in history of present illness, otherwise negative or noncontributory. He also denies abdominal pain, melena, dyspepsia, bright red blood per rectum. At this time, he has a very mild headache. PHYSICAL EXAMINATION: VITAL SIGNS: Blood pressure 143/77 with a pulse of 70, respirations 12. GENERAL: He is a well-developed, well-nourished, white male, in no acute distress. NECK: Jugular venous pressure is normal. Carotid pulses are 2+ bilaterally and without bruits. CHEST: Reveals clear lungs karimi. CARDIAC: He has a regular rhythm and rate without S3, S4, or murmurs. ABDOMEN: He has a soft nontender abdomen. Bowel sounds are present. There is no definite hepatosplenomegaly. EXTREMITIES: Reveals no clubbing, cyanosis, or edema. DIAGNOSTIC DATA: EKG is pending. Chest x-ray shows slightly increased interstitial markings. Laboratory data includes WBC 2.7, hemoglobin 10.7, platelets 103. Potassium 3.6, BUN 11, creatinine 0.67. IMPRESSION: A 57-year-old white male with a history of lupus, Raynaud phenomena, deep venous thrombosis of the left lower extremity, hypertension, admitted with acute right frontal intracranial hemorrhage. I have been asked to see the patient for transesophageal echocardiography. I would agree with the need for this test. His transthoracic echo has been reviewed. He does have [id number] eccentrically directed mitral regurgitation and some thickening of the mitral leaflets. In addition, he has blood cultures positive for gram-positive rods. The nature of transesophageal echocardiography and the potential risks have been outlined to the patient, who agrees to proceed. RECOMMENDATIONS: Transesophageal echocardiography today if it can be placed on the schedule. MD TEODORA Regalado/nimesh , 08:39 AM , 08:47 AM NORM
--- NOTE | 2018-06-01 10:16 | P.PNID ---
Subjective Remarks: Patient is a 57-year-old male, brought in to the hospital at [facility] complaining of 3-day history of generalized weakness, altered mental status, and he was noted to have left-sided weakness. In the ED he was found to have a right frontal intraparenchymal hematoma with intraventricular extension. There was some mass-effect on the right frontal lobe with a 5 mm midline shift to the left. There was also another intraparenchymal hematoma seen in the left posterior frontal cortex. Patient was transferred to [facility] for neurosurgical evaluation. Since admission he had some deterioration in his mentation, however imaging study showed the same. He was put on hypertonic saline, and it seems that his neurological status has stabilized. Patient has been in the hospital since May 25. On May 27 he started having low-grade fevers, and on May 29 he spiked. 2 blood cultures were drawn, and yesterday it was reported as growing pleomorphic gram- positive sivakumar. Patient has some low-grade fevers today. He has some frontal headache. Trans-thoracic echocardiogram is showing abnormality in the mitral valve with thickened leaflets, cannot rule out endocarditis. On further questioning, patient apparently has been having on and off fevers since around March. The first time he had fevers he went to an urgent care center, and at that time he has a lesion on 1 of his fingers, and he was given an antibiotic for infection on his finger. Most of the time his temperatures are between 992 100. The second time he had fevers he went to the urgent care center again, and he had some upper respiratory symptoms at that time, and he was apparently given doxycycline. The last time he had some upper respiratory symptoms again, and he was given amoxicillin which he took for about 6 days, he was not improving, so he went back to the urgent care center, and more workup was done at that time and it was decided that he did not have any respiratory infections so his antibiotic was stopped. This was about 3 weeks ago. Patient has not had any prior history of blood infection or endocarditis. He has not had any prior history of IV drug use. He has no prior history of skin infection , except the one in March on his finger. Infectious disease consultation has been requested to assist with evaluation and treatment of positive blood culture. Notes reviewed Temps ok Possible ARMOND today repeat BC pending WBC 2.7 yesterday No new complaints Antibiotics: Vancomycin Rocephin Past Medical History: DVT (deep venous thrombosis) Lupus (systemic lupus erythematosus) Raynaud phenomenon Allergies/Adverse Reactions: Allergies No Known Allergies Allergy (Verified 05/25/18 06:51) Objective Vital Signs 05/31/18 10:28 05/31/18 11:00 05/31/18 11:14 Temperature Pulse Rate 75 72 81 Respiratory Rate 20 18 20 Blood Pressure 154/83 H 139/85 Pulse Oximetry 100 100 100 05/31/18 11:30 05/31/18 11:54 05/31/18 12:00 Temperature 98 F Pulse Rate 81 75 79 Respiratory Rate 22 25 H Blood Pressure 142/78 H 117/56 L Pulse Oximetry 100 99 05/31/18 12:30 05/31/18 13:00 05/31/18 13:30 Temperature Pulse Rate 77 79 75 Respiratory Rate 24 20 17 Blood Pressure 106/60 137/79 146/79 H Pulse Oximetry 99 99 100 05/31/18 13:42 05/31/18 14:00 05/31/18 14:30 Temperature Pulse Rate 94 H 79 72 Respiratory Rate 19 12 Blood Pressure 159/80 H 139/85 Pulse Oximetry 100 99 05/31/18 15:00 05/31/18 15:30 05/31/18 15:31 Temperature Pulse Rate 68 72 73 Respiratory Rate 13 21 19 Blood Pressure 133/82 144/92 H 145/87 H Pulse Oximetry 100 98 97 05/31/18 16:00 05/31/18 16:01 05/31/18 16:31 Temperature 97.8 F Pulse Rate 72 71 69 Respiratory Rate 18 19 17 Blood Pressure 153/92 H 145/92 H Pulse Oximetry 100 99 99 05/31/18 17:00 05/31/18 17:01 05/31/18 17:31 Temperature Pulse Rate 67 67 68 Respiratory Rate 19 22 19 Blood Pressure 150/93 H 189/102 H Pulse Oximetry 100 100 100 05/31/18 17:35 05/31/18 18:00 05/31/18 18:01 Temperature Pulse Rate 67 67 66 Respiratory Rate 19 16 20 Blood Pressure 151/92 H 159/96 H Pulse Oximetry 100 100 100 05/31/18 18:31 05/31/18 19:00 05/31/18 19:01 Temperature Pulse Rate 61 63 64 Respiratory Rate 12 13 13 Blood Pressure 153/88 H 134/95 H Pulse Oximetry 99 99 99 05/31/18 19:31 05/31/18 20:00 05/31/18 20:01 Temperature 98.0 F Pulse Rate 64 67 68 Respiratory Rate 14 17 16 Blood Pressure 140/88 150/92 H Pulse Oximetry 99 100 100 05/31/18 20:31 05/31/18 21:00 05/31/18 21:01 Temperature Pulse Rate 67 71 70 Respiratory Rate 20 17 17 Blood Pressure 164/95 H 133/80 Pulse Oximetry 99 100 100 05/31/18 21:31 05/31/18 22:00 05/31/18 22:01 Temperature Pulse Rate 73 80 76 Respiratory Rate 19 19 30 H Blood Pressure 147/85 H 141/89 H Pulse Oximetry 99 100 100 05/31/18 22:31 05/31/18 23:00 05/31/18 23:01 Temperature Pulse Rate 72 68 72 Respiratory Rate 24 19 21 Blood Pressure 129/88 150/90 H Pulse Oximetry 100 98 98 05/31/18 23:31 06/01/18 00:00 06/01/18 00:01 Temperature Pulse Rate 68 63 67 Respiratory Rate 21 15 17 Blood Pressure 121/64 151/93 H Pulse Oximetry 100 100 100 06/01/18 00:31 06/01/18 01:00 06/01/18 01:01 Temperature Pulse Rate 55 L 61 61 Respiratory Rate 12 13 13 Blood Pressure 120/67 122/71 Pulse Oximetry 100 99 99 06/01/18 01:31 06/01/18 02:00 06/01/18 02:01 Temperature Pulse Rate 65 56 L 59 L Respiratory Rate 13 12 12 Blood Pressure 154/88 H 153/86 H Pulse Oximetry 100 100 100 06/01/18 02:31 06/01/18 03:00 06/01/18 03:01 Temperature Pulse Rate 77 68 67 Respiratory Rate 16 14 16 Blood Pressure 139/94 H 145/93 H Pulse Oximetry 99 100 100 06/01/18 03:31 06/01/18 04:00 06/01/18 04:01 Temperature Pulse Rate 67 64 64 Respiratory Rate 17 14 18 Blood Pressure 157/99 H 154/89 H Pulse Oximetry 91 L 100 100 06/01/18 04:31 06/01/18 05:00 06/01/18 05:01 Temperature Pulse Rate 74 61 61 Respiratory Rate 26 H Blood Pressure 168/89 H 161/94 H Pulse Oximetry 100 99 100 06/01/18 05:31 06/01/18 06:00 06/01/18 06:01 Temperature Pulse Rate 76 60 61 Respiratory Rate 0 L 0 L Blood Pressure 147/88 H 146/91 H Pulse Oximetry 99 97 96 06/01/18 06:31 06/01/18 07:00 06/01/18 07:01 Temperature Pulse Rate 69 66 68 Respiratory Rate Blood Pressure 153/89 H 160/108 H Pulse Oximetry 96 96 97 06/01/18 07:02 06/01/18 07:13 06/01/18 07:31 Temperature 98.6 F Pulse Rate 67 72 75 Respiratory Rate 11 L Blood Pressure 160/89 H 156/92 H 143/77 H Pulse Oximetry 96 97 96 06/01/18 07:41 06/01/18 08:00 06/01/18 08:01 Temperature Pulse Rate 69 77 78 Respiratory Rate Blood Pressure 136/76 Pulse Oximetry 96 96 06/01/18 08:31 Temperature Pulse Rate 76 Respiratory Rate 21 Blood Pressure 137/71 Pulse Oximetry 96 Intake & Output 05/31/18 06/01/18 06/01/18 18:59 06:59 18:59 Intake Total 455 / 455 635 / 635 250 / 250 Output Total 600 / 600 560 / 560 Balance -145 / -145 75 / 75 250 / 250 Weight 90.4 kg Intake: IV 455 / 455 355 / 355 250 / 250 Vancomycin Inj 1,000 MG In NS 250 / 250 250 / 250 250 / 250 Inj 250 ML @ 250 mls/hr IV.SIG Q8H MELISSA Rx#:[id number] Rocephin Inj 2,000 MG In NS Inj 100 / 100 100 ML @ 200 mls/hr IV.SIG Q24H MELISSA Rx#:[id number] Keppra Inj 500 MG In NS Inj 100 105 / 105 105 / 105 ML @ 400 mls/hr IV.SIG Q12H MELISSA Rx#:[id number] Oral 280 / 280 Output: Urine 600 / 600 560 / 560 Other: Date of Last Bowel Movement 05/29/18 05/29/18 05/29/18 # Bowel Movements 0 05/31/18 13:00 Blood - Peripheral Aerobic Blood Culture - Pending 05/31/18 13:00 Blood - Peripheral Anaerobic Blood Culture - Pending 05/31/18 13:00 Blood - Line Aerobic Blood Culture - Pending 05/31/18 13:00 Blood - Line Anaerobic Blood Culture - Pending 05/29/18 12:23 Blood - Peripheral Aerobic Blood Culture - Preliminary pleomorphic gram positive rods 05/29/18 12:23 Blood - Peripheral Anaerobic Blood Culture - Preliminary pleomorphic gram positive rods 05/29/18 12:17 Blood - Peripheral Aerobic Blood Culture - Preliminary pleomorphic gram positive rods 05/29/18 12:17 Blood - Peripheral Anaerobic Blood Culture - Preliminary pleomorphic gram positive rods Lab - Hematology Results 05/30/18 05/31/18 10:00 04:05 WBC 4.4 2.7 L RBC 3.28 L 3.28 L Hgb 10.8 L 10.7 L Hct 30.6 L 30.6 L MCV 93.4 93.2 MCH 32.9 32.6 MCHC 35.2 35.0 RDW 13.4 13.6 Plt Count 114 L 103 L MPV 8.0 8.5 Lab - Chemistry Results 05/30/18 05/30/18 05/31/18 10:00 23:00 04:05 Sodium 146 H 144 145 Potassium 3.3 L 3.6 Chloride 114 H 114 H Carbon Dioxide 24.1 25.8 Anion Gap 8 5 BUN 12 11 Creatinine 0.84 0.67 Estimated GFR Greater than 89 Greater than 89 Random Glucose 172 H 107 H Calcium 7.9 L 7.7 L Magnesium 1.8 Total Bilirubin 0.6 0.6 AST 20 19 ALT 34 28 Alkaline Phosphatase 84 83 Total Protein 6.6 6.4 Albumin 2.3 L 2.2 L 05/31/18 05/31/18 06/01/18 18:00 22:13 04:45 Sodium 140 140 140 Potassium Chloride Carbon Dioxide Anion Gap BUN Creatinine Estimated GFR Random Glucose Calcium Magnesium Total Bilirubin AST ALT Alkaline Phosphatase Total Protein Albumin Imaging: ITS Impressions Head CTA 05/26/18 00:00 CONCLUSION: 1. See the MRI of the brain reported separately. 2. Unremarkable CTA. . . Head MRI 05/26/18 00:00 CONCLUSION: 1. Redemonstration of a large right frontoparietal mid to high convexity intraparenchymal hematoma measuring up to 5.2 cm with prominent surrounding vasogenic edema resulting in 4 mm right to left subfalcine shift. 2. Blood products extend to the ventricles with stable borderline ventricle size. 3. Redemonstration of 8 mm intraparenchymal hematoma in the left parietal high convexities without significant mass effect at this time. 4. No definitive abnormal enhancing mass is demonstrated. Extent of hemorrhage and associated abnormality can obscure a more subtle mass. Neck CTA 05/26/18 00:00 CONCLUSION: 1. Patent carotid arteries and vertebral arteries. Abdomen X-Ray 05/27/18 09:54 CONCLUSION: Dobbhoff feeding tube coiled in the stomach. Head CT 05/27/18 12:31 CONCLUSION: 1. 4.6 cm right frontal hemorrhage and 8mm left parietal hemorrhage are relatively stable. Tiny new focus of hemorrhage near the vertex on the left and slight increase in hemorrhage in the lateral ventricles since May 25. Fourth ventricular hemorrhage has decreased. Ventricular size is stable. . . Venous Doppler Study 05/29/18 00:00 CONCLUSION: 1. Occlusive DVT of the left common femoral vein and superficial femoral vein diffusely. 2. No evidence of DVT in the right lower extremity. Chest X-Ray 05/31/18 06:00 CONCLUSION: Cardiomegaly with interstitial densities likely interstitial edema. Physical Exam: GENERAL: awake and alert, not in respiratory distress. He is following commands, speech is clear SKIN: Warm and dry. No generalized rash, no ecchymoses and no evidence of embolic lesions. HEAD: Atraumatic. Normocephalic. No temporal wasting, or tenderness. EYES: Retreat conjunctiva. No petechia or hemorrhage. Pupils equal, round and reactive to light. Extraocular movements full and intact. No scleral icterus. No injection or drainage. EARS, NOSE AND THROAT: Nose without bleeding or purulent nasal discharge. No sinus tenderness. Mucous membranes pink and moist. No oral lesions noted. No exudate. No oral thrush. NECK: Trachea midline. Supple and not tender, no meningeal signs CARDIOVASCULAR: Regular rate and rhythm. No murmurs, rubs or gallops heard RESPIRATORY: Clear to auscultation. Breath sounds equal bilaterally. No rales , wheezing or rhonchi ABDOMEN: Soft, non-tender, nondistended. Bowel sounds present and normoactive. No guarding. No rebound. No organomegaly. EXTREMITIES: No clubbing, cyanosis, or edema. No joint effusion, has good ROM. No calf tenderness. Well perfused and warm. NEUROLOGICAL: Awake and alert. Cranial nerves grossly intact. LUE weaker compared to the RLE PSYCHIATRIC: Flat affect, calm and cooperative. LINE: No evidence of infection Assessment and Plan - Plan Impression Sepsis, has (+) BC with pleomorphic GPR, source? concern is endocarditis - TTE with abnormal MV - has been having on and off fevers since Mar 2018 - ?stroke due to IE ICH DVT SLE Recommendation Repeat BC ARMOND Continue Ranjeet for now Follow C/S and adjust Abx Wait for clearing of BC before placement of IVC filter Monitor progress I will determine course of Abx depending on results of workup D/W Dr Carey
--- NOTE | 2018-06-01 13:21 | ECHRPT ---
Indication: CONCLUSIONS Normal left ventricular size and wall thickness. The left ventricular systolic function is normal wi th an estimated ejection fraction in the range of 60-65%. Normal wall motion. Mild focal calcification of the posterior mitral leaflet tip. Small shaggy, nonmobile, approximate ly 2 mm diameter echodensity on anterior mitral leaflet tip, difficult to rule out vegetation. Mild to mod erate mitral regurgitation. Structurally normal tricuspid valve. There is mild tricuspid valve regurgitation. BP: / HR: Rhythm: Technical Quality: Medications Complications Proc. Components FINDINGS LEFT VENTRICLE Normal left ventricular size and wall thickness. The left ventricular systolic function is normal wi th an estimated ejection fraction in the range of 60-65%. Normal wall motion. RIGHT VENTRICLE Normal right ventricular size and systolic function. LEFT ATRIUM The left atrial size is normal. RIGHT ATRIUM The right atrial size is normal. ATRIAL SEPTUM Normal atrial septal thickness without atrial level shunting by limited color doppler interrogation. AORTA The aortic root and proximal ascending aorta are normal in size on limited imaging. MITRAL VALVE Mild focal calcification of the posterior mitral leaflet tip. Small shaggy, nonmobile, approximate ly 2 mm diameter echodensity on anterior mitral leaflet tip, difficult to rule out vegetation. Mild to mod erate mitral regurgitation. AORTIC VALVE Trileaflet aortic valve. No aortic valve stenosis or regurgitation. TRICUSPID VALVE Structurally normal tricuspid valve. There is mild tricuspid valve regurgitation. VESSELS The inferior vena cava is normal in size. PULMONARY VALVE The pulmonary valve is not well visualized. PERICADIUM No pericardial effusion. Aristides Hester MD (Electronically Signed) Final Date:01 June 2018 13:21
--- NOTE | 2018-06-01 13:23 | P.PNADD ---
Addendum to Inpatient Note Reason for Addendum: Additional Documentation Additional information: ARMOND today shows questionable small, shaggy, approximately 2 mm diameter echodensity on anterior mitral leaflet tip. Hard to rule out this is small vegetation. There is associated mild to moderate mitral regurgitation. No other valvular lesions are seen. Overall recommend treat patient for endocarditis. Will f/u as needed.
[2018-06-01 15:34] LABS: Baso % (Auto) 1.4 % (0.0-2.0); Eos # (Auto) 0.1 th/mm3 (0.0-0.4); Eos % (Auto) 3.2 % (0.0-4.0); Hemoglobin 12.9 gm/dL (13.0-17.0); Lymph # (Auto) 0.6 th/mm3 (1.0-4.8); Lymph % (Auto) 21.7 % (9.0-44.0); Mean Corpuscular Hemoglobin 32.2 pg (27.0-34.0); Mean Corpuscular Volume 92.1 fL (80.0-100.0); Mean Platelet Volume 8.4 fL (7.0-11.0); Mono # (Auto) 0.4 th/mm3 (0.0-0.9); Mono % (Auto) 14.3 % (0.0-8.0); Neut # (Auto) 1.6 th/mm3 (1.8-7.7); Neut % (Auto) 59.4 % (16.0-70.0); Platelet Count 109 th/mm3 (150-450); Red Blood Count 4.01 mil/mm3 (4.50-5.90); Red Cell Distribution Width 13.4 % (11.6-17.2); White Blood Count 2.6 th/mm3 (4.0-11.0)
--- NOTE | 2018-06-01 16:08 | P.PNONC ---
Subjective Interval history: Afebrile. Patient reports feeling well, his states that he is much better than last week. He was able to get a shower. He has been ambulating. His states that physical therapy has refused to work with him until he has an IVC filter in place due to the blood clot. DVT is thought to be old and chronic, it was found many years ago incidentally and repeat scans per showed calcification. Denies any pain or bleeding. Reports headache yesterday and a mild one this a.m., denies any further headache today. Objective Vital Signs/Intake & Output: Vital Signs 05/31/18 16:00 05/31/18 16:01 05/31/18 16:31 Temperature 97.8 F Pulse Rate 72 71 69 Respiratory Rate 18 19 17 Blood Pressure 153/92 H 145/92 H Pulse Oximetry 100 99 99 05/31/18 17:00 05/31/18 17:01 05/31/18 17:31 Temperature Pulse Rate 67 67 68 Respiratory Rate 19 22 19 Blood Pressure 150/93 H 189/102 H Pulse Oximetry 100 100 100 05/31/18 17:35 05/31/18 18:00 05/31/18 18:01 Temperature Pulse Rate 67 67 66 Respiratory Rate 19 16 20 Blood Pressure 151/92 H 159/96 H Pulse Oximetry 100 100 100 05/31/18 18:31 05/31/18 19:00 05/31/18 19:01 Temperature Pulse Rate 61 63 64 Respiratory Rate 12 13 13 Blood Pressure 153/88 H 134/95 H Pulse Oximetry 99 99 99 05/31/18 19:31 05/31/18 20:00 05/31/18 20:01 Temperature 98.0 F Pulse Rate 64 67 68 Respiratory Rate 14 17 16 Blood Pressure 140/88 150/92 H Pulse Oximetry 99 100 100 05/31/18 20:31 05/31/18 21:00 05/31/18 21:01 Temperature Pulse Rate 67 71 70 Respiratory Rate 20 17 17 Blood Pressure 164/95 H 133/80 Pulse Oximetry 99 100 100 05/31/18 21:31 05/31/18 22:00 05/31/18 22:01 Temperature Pulse Rate 73 80 76 Respiratory Rate 19 19 30 H Blood Pressure 147/85 H 141/89 H Pulse Oximetry 99 100 100 05/31/18 22:31 05/31/18 23:00 05/31/18 23:01 Temperature Pulse Rate 72 68 72 Respiratory Rate 24 19 21 Blood Pressure 129/88 150/90 H Pulse Oximetry 100 98 98 05/31/18 23:31 06/01/18 00:00 06/01/18 00:01 Temperature Pulse Rate 68 63 67 Respiratory Rate 21 15 17 Blood Pressure 121/64 151/93 H Pulse Oximetry 100 100 100 06/01/18 00:31 06/01/18 01:00 06/01/18 01:01 Temperature Pulse Rate 55 L 61 61 Respiratory Rate 12 13 13 Blood Pressure 120/67 122/71 Pulse Oximetry 100 99 99 06/01/18 01:31 06/01/18 02:00 06/01/18 02:01 Temperature Pulse Rate 65 56 L 59 L Respiratory Rate 13 12 12 Blood Pressure 154/88 H 153/86 H Pulse Oximetry 100 100 100 06/01/18 02:31 06/01/18 03:00 06/01/18 03:01 Temperature Pulse Rate 77 68 67 Respiratory Rate 16 14 16 Blood Pressure 139/94 H 145/93 H Pulse Oximetry 99 100 100 06/01/18 03:31 06/01/18 04:00 06/01/18 04:01 Temperature Pulse Rate 67 64 64 Respiratory Rate 17 14 18 Blood Pressure 157/99 H 154/89 H Pulse Oximetry 91 L 100 100 06/01/18 04:31 06/01/18 05:00 06/01/18 05:01 Temperature Pulse Rate 74 61 61 Respiratory Rate 26 H Blood Pressure 168/89 H 161/94 H Pulse Oximetry 100 99 100 06/01/18 05:31 06/01/18 06:00 06/01/18 06:01 Temperature Pulse Rate 76 60 61 Respiratory Rate 0 L 0 L Blood Pressure 147/88 H 146/91 H Pulse Oximetry 99 97 96 06/01/18 06:31 06/01/18 07:00 06/01/18 07:01 Temperature Pulse Rate 69 66 68 Respiratory Rate Blood Pressure 153/89 H 160/108 H Pulse Oximetry 96 96 97 06/01/18 07:02 06/01/18 07:13 06/01/18 07:31 Temperature 98.6 F Pulse Rate 67 72 75 Respiratory Rate 11 L Blood Pressure 160/89 H 156/92 H 143/77 H Pulse Oximetry 96 97 96 02/26/19 07:41 06/01/18 08:00 06/01/18 08:01 Temperature Pulse Rate 69 77 78 Respiratory Rate Blood Pressure 136/76 Pulse Oximetry 96 96 06/01/18 08:31 06/01/18 09:00 06/01/18 09:01 Temperature Pulse Rate 76 74 75 Respiratory Rate 21 13 15 Blood Pressure 137/71 136/82 Pulse Oximetry 96 96 96 06/01/18 09:31 06/01/18 10:00 06/01/18 10:01 Temperature Pulse Rate 73 73 69 Respiratory Rate 19 18 16 Blood Pressure 136/75 139/85 Pulse Oximetry 97 97 97 06/01/18 10:31 06/01/18 11:00 06/01/18 11:01 Temperature Pulse Rate 70 73 74 Respiratory Rate 20 18 18 Blood Pressure 154/91 H 147/87 H Pulse Oximetry 97 97 97 06/01/18 11:31 06/01/18 11:43 06/01/18 12:00 Temperature 97.8 F Pulse Rate 72 83 64 Respiratory Rate 14 12 Blood Pressure 147/77 H Pulse Oximetry 97 98 06/01/18 12:01 06/01/18 12:26 06/01/18 12:28 Temperature Pulse Rate 65 64 70 Respiratory Rate 12 11 L 15 Blood Pressure 159/85 H 139/84 135/75 Pulse Oximetry 98 99 99 06/01/18 12:30 06/01/18 12:33 06/01/18 12:35 Temperature Pulse Rate 82 82 76 Respiratory Rate 8 L 14 13 Blood Pressure 124/75 117/76 120/77 Pulse Oximetry 98 100 100 06/01/18 12:38 06/01/18 12:40 06/01/18 12:43 Temperature Pulse Rate 77 76 77 Respiratory Rate 13 15 15 Blood Pressure 128/75 127/79 125/78 Pulse Oximetry 100 100 100 06/01/18 12:45 06/01/18 12:48 06/01/18 12:50 Temperature Pulse Rate 75 76 66 Respiratory Rate 15 14 10 L Blood Pressure 121/78 133/83 134/77 Pulse Oximetry 100 100 100 06/01/18 12:53 06/01/18 12:55 06/01/18 12:58 Temperature Pulse Rate 77 70 66 Respiratory Rate 19 14 17 Blood Pressure 142/79 H 129/81 143/83 H Pulse Oximetry 100 100 99 06/01/18 13:00 06/01/18 13:03 06/01/18 13:15 Temperature Pulse Rate 64 66 65 Respiratory Rate 14 13 12 Blood Pressure 139/81 141/87 H 146/82 H Pulse Oximetry 99 100 100 06/01/18 14:00 Temperature Pulse Rate 75 Respiratory Rate Blood Pressure Pulse Oximetry Intake & Output 05/31/18 06/01/18 06/01/18 18:59 06:59 18:59 Intake Total 455 / 455 635 / 635 600 / 600 Output Total 600 / 600 560 / 560 Balance -145 / -145 75 / 75 600 / 600 Weight 90.4 kg Intake: IV 455 / 455 355 / 355 600 / 600 Vancomycin Inj 1,000 MG In NS 250 / 250 250 / 250 500 / 500 Inj 250 ML @ 250 mls/hr IV.SIG Q8H [facility] Rx#:[id number] Rocephin Inj 2,000 MG In NS Inj 100 / 100 100 / 100 100 ML @ 200 mls/hr IV.SIG Q24H [facility] Rx#:[id number] Keppra Inj 500 MG In NS Inj 100 105 / 105 105 / 105 ML @ 400 mls/hr IV.SIG Q12H [facility] Rx#:[id number] Oral 280 / 280 Output: Urine 600 / 600 560 / 560 Other: Date of Last Bowel Movement 05/29/18 05/29/18 05/29/18 # Bowel Movements 0 Result Diagrams: 06/01/18 14:52 06/01/18 04:45 Laboratory Results: Laboratory Results - last 24 hr 05/31/18 05/31/18 06/01/18 18:00 22:13 04:45 WBC RBC Hgb Hct MCV MCH MCHC RDW Plt Count MPV Neut % (Auto) Lymph % (Auto) [place] % (Auto) Eos % (Auto) Baso % (Auto) Neut # (Auto) Lymph # (Auto) [place] # (Auto) Eos # (Auto) Baso # (Auto) WBC Differential Differential Comment Sodium 140 140 140 Vancomycin Trough 16.0 H 06/01/18 14:52 WBC 2.6 L RBC 4.01 L Hgb 12.9 L D Hct 37.0 L MCV 92.1 MCH 32.2 MCHC 35.0 RDW 13.4 Plt Count 109 L MPV 8.4 Neut % (Auto) 59.4 Lymph % (Auto) 21.7 [place] % (Auto) 14.3 H Eos % (Auto) 3.2 Baso % (Auto) 1.4 Neut # (Auto) 1.6 L Lymph # (Auto) 0.6 L [place] # (Auto) 0.4 Eos # (Auto) 0.1 Baso # (Auto) 0.0 WBC Differential . Differential Comment Auto diff final Sodium Vancomycin Trough Culture Results: Microbiology 05/31/18 13:00 Aerobic Blood Culture - Preliminary Blood - Peripheral No growth in 1 day Anaerobic Blood Culture - Preliminary No growth in 1 day 05/31/18 13:00 Aerobic Blood Culture - Preliminary Blood - Line No growth in 1 day Anaerobic Blood Culture - Preliminary No growth in 1 day 05/29/18 12:23 Aerobic Blood Culture - Preliminary Blood - Peripheral pleomorphic gram positive rods Anaerobic Blood Culture - Preliminary pleomorphic gram positive rods 05/29/18 12:17 Aerobic Blood Culture - Preliminary Blood - Peripheral pleomorphic gram positive rods Anaerobic Blood Culture - Preliminary pleomorphic gram positive rods Medications: Active Medications Generic Name Dose Route Start Last Admin Trade Name Freq PRN Reason Stop Dose Admin Acetaminophen 650 mg 05/27/18 20:13 06/01/18 07:16 Tylenol PO 650 mg Q6H PRN Administration FEVER Hydralazine HCl 20 mg 05/25/18 06:56 06/01/18 07:17 Apresoline Inj IV.PUSH 20 mg Q4H PRN Administration sbp>150 Potassium Chloride 40 meq in 100 mls @ 25 mls/hr 05/25/18 07:07 05/31/18 06: 14 Kcl 40 Meq Premix Inj IV.SIG Infused Q2H PRN Infusion For Potassium 2.8 - 3.2 mEq/L Ceftriaxone Sodium 2,000 mg/ 100 mls @ 200 mls/hr 05/30/18 12:00 06/01/18 11: 59 Sodium Chloride IV.SIG Infused Q24H [facility] Infusion Vancomycin HCl 1,000 mg/ 250 mls @ 250 mls/hr 05/30/18 19:00 06/01/18 12:21 Sodium Chloride IV.SIG Infused Q8H [facility] Infusion Lactulose 30 ml 05/29/18 13:00 06/01/18 12:22 Lactulose Liq PO Not Given TID [facility] Levetiracetam 500 mg 06/01/18 09:00 06/01/18 08:40 Keppra PO 500 mg BID [facility] Administration Melatonin 5 mg 05/30/18 17:07 05/31/18 20:39 Melatonin PO 5 mg HS PRN Administration SLEEP Pantoprazole Sodium 40 mg 06/01/18 09:00 06/01/18 08:40 Protonix PO 40 mg DAILY [facility] Administration Potassium Chloride 40 meq 05/25/18 07:07 05/29/18 15:08 Kcl Liq PO 40 meq UNSCH PRN Administration Potassium level 3.3-3.5 mEq/L Senna/Docusate Sodium 2 tab 05/29/18 09:30 06/01/18 08:40 Jocelyn-Colace PO 2 tab BID M[facility] Administration Sodium Chloride 2 ml 05/25/18 09:00 06/01/18 08:46 Ns Flush IV.FLUSH Not Given BID [facility] Objective Remarks: GENERAL: Well-nourished, well-developed male patient, in no acute distress. SKIN: Warm and dry. HEAD: Normocephalic. EYES: No scleral icterus. No injection or drainage. NECK: Supple, trachea midline. CARDIOVASCULAR: Regular rate and rhythm without murmurs. RESPIRATORY: Anterior breath sounds clear, equal bilaterally. Nonlabored. GASTROINTESTINAL: Abdomen soft, non-tender, nondistended. EXTREMITIES: No cyanosis, or edema. Sequential to RLE. MUSCULOSKELETAL: Adequate muscle tone. NEUROLOGICAL: No obvious focal deficit. Awake, alert, and oriented x3. PSYCHIATRIC: Appropriate mood and affect; insight and judgment normal. Assessment/Plan - Plan Mr. Lloyd is a pleasant 57-year-old gentleman currently hospitalized after intracranial bleed and sepsis. He has a history of DVT to left lower extremity , incidentally diagnosed 8 years ago. He was treated with Xarelto, repeat ultrasound 1/2 years later DVT had become calcified. Hematology was consulted for recommendations in regards to DVT in a patient who has intracranial hemorrhage. Plan: 1. DVT, chronic in nature. Will confirm history of chronic DVT once we have obtained records from vault service mechanic in [place]. Patient now with intracranial hemorrhage, we do not recommend anticoagulation at this time. Would recommend IVC filter, however patient currently has gram-positive sepsis and endocarditis , therefore he cannot have IVC filter placed. Discussed holding all anticoagulations with the patient and his . 2. Intracranial hemorrhage, hold anticoagulation as risks outweigh benefits. 3. DVT is likely chronic in nature, patient may proceed with physical therapy. - Attending Statement The exam, history, and the medical decision-making described in the above note were completed with the assistance of the mid-level provider. I reviewed and agree with the findings presented. I attest that I had a [id number] encounter with the patient on the same day, and personally performed and documented my assessment and findings in the medical record. Patient denies any new complaint. He is overall feeling better According to his he has much improved since the admission He does not have any swelling of the left lower leg His DVT appears to be chronic His is trying to get records from previous vault service mechanic in [place] We need some records regarding his previous hypercoagulable workup decide whether he needs any filter or without filter
[2018-06-01] MEDS ORDERED: Pharmacy Ordered Lab Info OTHER ONE (18:45)
--- NOTE | 2018-06-01 19:53 | ECG ---
Date Performed: 06/01/2018 Time Performed: 10:09:08 PTAGE: 57 years EKG: Sinus rhythm WITH OCCASIONAL SUPRAVENTRICULAR PREMATURE COMPLEXES PROLONGED QT INTERVAL ABNORMAL ECG NO PREVIOUS TRACING DOCTOR: Kathie Jonas Interpretating Date/Time 06/01/2018 19:51:42
[2018-06-01] MEDS: Melatonin 5 MG Tablet PO PRN (21:45)
[2018-06-02] MEDS: Vancomycin Inj 1,000 MG in Sodium Chlor 0.9% Inj 250 ML IV.SIG SCH ×3 (02:33→18:25)
[2018-06-02] MEDS: Acetaminophen 325 MG Tablet PO PRN ×2 (05:05→14:19)
[2018-06-02 05:48] LABS: Baso # (Auto) 0.1 th/mm3 (0.0-0.2); Baso % (Auto) 2.2 % (0.0-2.0); Eos # (Auto) 0.1 th/mm3 (0.0-0.4); Eos % (Auto) 2.3 % (0.0-4.0); Hematocrit 35.4 % (39.0-51.0); Hemoglobin 12.4 gm/dL (13.0-17.0); Lymph # (Auto) 0.6 th/mm3 (1.0-4.8); Lymph % (Auto) 19.3 % (9.0-44.0); Mean Corpuscular Hemoglobin 31.6 pg (27.0-34.0); Mean Corpuscular Volume 90.2 fL (80.0-100.0); Mono # (Auto) 0.4 th/mm3 (0.0-0.9); Mono % (Auto) 13.4 % (0.0-8.0); Neut # (Auto) 1.9 th/mm3 (1.8-7.7); Neut % (Auto) 62.8 % (16.0-70.0); Platelet Count 108 th/mm3 (150-450); Red Blood Count 3.92 mil/mm3 (4.50-5.90); Red Cell Distribution Width 13.5 % (11.6-17.2)
[2018-06-02 06:17] LABS: Anion Gap 7 meq/L (5-15); Blood Urea Nitrogen 9 mg/dL (7-18); Calcium 8.2 mg/dL (8.5-10.1); Carbon Dioxide 23.9 meq/L (21.0-32.0); Chloride 106 meq/L (98-107); Glomerular Filtration Rate Greater Than 89 mL/min (>89); Glucose,Random 101 mg/dL (74-106); Magnesium 1.8 mg/dL (1.5-2.5); Potassium 3.2 meq/L (3.5-5.1); Sodium 137 meq/L (136-145)
[2018-06-02] MEDS: Senna/Docusate Sodium 8.6/50 MG Tablet PO SCH ×2 (09:23→21:24)
[2018-06-02] MEDS: levETIRAcetam 500 MG Tablet PO SCH ×2 (09:23→21:25)
[2018-06-02] MEDS ORDERED: Pharmacy Ordered Lab Info OTHER ONE (10:45)
--- NOTE | 2018-06-02 10:53 | P.PNID ---
Subjective Remarks: Patient is a 57-year-old male, brought in to the hospital at [facility] complaining of 3-day history of generalized weakness, altered mental status, and he was noted to have left-sided weakness. In the ED he was found to have a right frontal intraparenchymal hematoma with intraventricular extension. There was some mass-effect on the right frontal lobe with a 5 mm midline shift to the left. There was also another intraparenchymal hematoma seen in the left posterior frontal cortex. Patient was transferred to [facility] for neurosurgical evaluation. Since admission he had some deterioration in his mentation, however imaging study showed the same. He was put on hypertonic saline, and it seems that his neurological status has stabilized. Patient has been in the hospital since May 25. On May 27 he started having low-grade fevers, and on May 29 he spiked. 2 blood cultures were drawn, and yesterday it was reported as growing pleomorphic gram- positive sivakumar. Patient has some low-grade fevers today. He has some frontal headache. Trans-thoracic echocardiogram is showing abnormality in the mitral valve with thickened leaflets, cannot rule out endocarditis. On further questioning, patient apparently has been having on and off fevers since around March. The first time he had fevers he went to an urgent care center, and at that time he has a lesion on 1 of his fingers, and he was given an antibiotic for infection on his finger. Most of the time his temperatures are between 992 100. The second time he had fevers he went to the urgent care center again, and he had some upper respiratory symptoms at that time, and he was apparently given doxycycline. The last time he had some upper respiratory symptoms again, and he was given amoxicillin which he took for about 6 days, he was not improving, so he went back to the urgent care center, and more workup was done at that time and it was decided that he did not have any respiratory infections so his antibiotic was stopped. This was about 3 weeks ago. Patient has not had any prior history of blood infection or endocarditis. He has not had any prior history of IV drug use. He has no prior history of skin infection , except the one in March on his finger. Infectious disease consultation has been requested to assist with evaluation and treatment of positive blood culture. Notes reviewed Temps ok ARMOND with vegetation in MV C/O L groin pain, when he flexes at hip joint No abdominal pain Repeat BC negative so far Not taking any probiotic at [facility] NO previous colonoscopy; OB negative done as outpatient No GI problems previously WBC 3.0 - has increased monos Antibiotics: Vancomycin Rocephin Past Medical History: DVT (deep venous thrombosis) Lupus (systemic lupus erythematosus) Raynaud phenomenon Allergies/Adverse Reactions: Allergies No Known Allergies Allergy (Verified 05/25/18 06:51) Objective Vital Signs 06/01/18 11:00 06/01/18 11:01 06/01/18 11:31 Temperature 97.8 F Pulse Rate 73 74 72 Respiratory Rate 18 18 14 Blood Pressure 147/87 H 147/77 H Pulse Oximetry 97 97 97 06/01/18 11:43 06/01/18 12:00 06/01/18 12:01 Temperature Pulse Rate 83 64 65 Respiratory Rate 12 12 Blood Pressure 159/85 H Pulse Oximetry 98 98 06/01/18 12:26 06/01/18 12:28 06/01/18 12:30 Temperature Pulse Rate 64 70 82 Respiratory Rate 11 L 15 8 L Blood Pressure 139/84 135/75 124/75 Pulse Oximetry 99 99 98 06/01/18 12:33 06/01/18 12:35 06/01/18 12:38 Temperature Pulse Rate 82 76 77 Respiratory Rate 14 13 13 Blood Pressure 117/76 120/77 128/75 Pulse Oximetry 100 100 100 06/01/18 12:40 06/01/18 12:43 06/01/18 12:45 Temperature Pulse Rate 76 77 75 Respiratory Rate 15 15 15 Blood Pressure 127/79 125/78 121/78 Pulse Oximetry 100 100 100 06/01/18 12:48 06/01/18 12:50 06/01/18 12:53 Temperature Pulse Rate 76 66 77 Respiratory Rate 14 10 L 19 Blood Pressure 133/83 134/77 142/79 H Pulse Oximetry 100 100 100 06/01/18 12:55 06/01/18 12:58 06/01/18 13:00 Temperature Pulse Rate 70 66 64 Respiratory Rate 14 17 14 Blood Pressure 129/81 143/83 H 139/81 Pulse Oximetry 100 99 99 06/01/18 13:03 06/01/18 13:15 06/01/18 13:30 Temperature Pulse Rate 66 65 62 Respiratory Rate 13 12 12 Blood Pressure 141/87 H 146/82 H 150/78 H Pulse Oximetry 100 100 100 06/01/18 13:45 06/01/18 14:00 06/01/18 14:15 Temperature Pulse Rate 63 73 73 Respiratory Rate 11 L 19 20 Blood Pressure 146/88 H 148/84 H 148/92 H Pulse Oximetry 100 100 99 06/01/18 14:30 06/01/18 14:40 06/01/18 14:45 Temperature 98 F Pulse Rate 84 83 81 Respiratory Rate 19 24 21 Blood Pressure 145/101 H 146/96 H 141/92 H Pulse Oximetry 99 99 99 06/01/18 14:56 06/01/18 16:00 06/01/18 18:18 Temperature Pulse Rate 91 H 75 Respiratory Rate 19 Blood Pressure 142/85 H Pulse Oximetry 99 06/01/18 18:19 06/01/18 19:00 06/01/18 19:18 Temperature 98 F Pulse Rate 77 79 Respiratory Rate 16 16 Blood Pressure 148/92 H Pulse Oximetry 97 98 98 06/01/18 20:00 06/01/18 20:18 06/01/18 21:00 Temperature Pulse Rate 84 91 H 90 Respiratory Rate 15 17 15 Blood Pressure 152/92 H Pulse Oximetry 98 97 97 06/01/18 21:18 06/01/18 21:53 06/01/18 22:00 Temperature Pulse Rate 82 79 80 Respiratory Rate 16 20 Blood Pressure 157/81 H Pulse Oximetry 96 96 06/01/18 22:18 06/01/18 23:00 06/01/18 23:18 Temperature Pulse Rate 69 67 66 Respiratory Rate 15 12 12 Blood Pressure 143/89 H 145/86 H Pulse Oximetry 96 96 96 06/01/18 23:54 06/02/18 00:00 06/02/18 00:18 Temperature 97.8 F Pulse Rate 74 68 Respiratory Rate 15 16 16 Blood Pressure 146/90 H Pulse Oximetry 98 99 06/02/18 04:00 06/02/18 04:30 06/02/18 06:00 Temperature 98.1 F Pulse Rate 69 Respiratory Rate 16 18 18 Blood Pressure 140/82 Pulse Oximetry 98 06/02/18 08:00 Temperature 98.0 F Pulse Rate 76 Respiratory Rate 16 Blood Pressure 155/94 H Pulse Oximetry 100 Intake & Output 06/01/18 06/02/18 06/02/18 18:59 06:59 18:59 Intake Total 600 / 600 500 / 500 Balance 600 / 600 500 / 500 Intake: IV 600 / 600 500 / 500 Vancomycin Inj 1,000 MG In NS 500 / 500 500 / 500 Inj 250 ML @ 250 mls/hr IV.SIG Q8H [facility] Rx#:[id number] Rocephin Inj 2,000 MG In NS Inj 100 / 100 100 ML @ 200 mls/hr IV.SIG Q24H [facility] Rx#:[id number] Other: # Voids 4 # Incontinent Voids 1 Date of Last Bowel Movement 05/29/18 05/29/18 06/01/18 14:52 Blood - Peripheral Aerobic Blood Culture - Pending 06/01/18 14:52 Blood - Peripheral Anaerobic Blood Culture - Pending 05/31/18 13:00 Blood - Peripheral Aerobic Blood Culture - Preliminary No growth in 1 day 05/31/18 13:00 Blood - Peripheral Anaerobic Blood Culture - Preliminary No growth in 1 day 05/31/18 13:00 Blood - Line Aerobic Blood Culture - Preliminary No growth in 1 day 05/31/18 13:00 Blood - Line Anaerobic Blood Culture - Preliminary No growth in 1 day 05/29/18 12:23 Blood - Peripheral Aerobic Blood Culture - Preliminary pleomorphic gram positive rods 05/29/18 12:23 Blood - Peripheral Anaerobic Blood Culture - Preliminary pleomorphic gram positive rods 05/29/18 12:17 Blood - Peripheral Aerobic Blood Culture - Preliminary pleomorphic gram positive rods 05/29/18 12:17 Blood - Peripheral Anaerobic Blood Culture - Preliminary pleomorphic gram positive rods Lab - Hematology Results 06/01/18 06/02/18 14:52 05:31 WBC 2.6 L 3.0 L RBC 4.01 L 3.92 L Hgb 12.9 L D 12.4 L Hct 37.0 L 35.4 L MCV 92.1 90.2 MCH 32.2 31.6 MCHC 35.0 35.0 RDW 13.4 13.5 Plt Count 109 L 108 L MPV 8.4 8.0 Neut % (Auto) 59.4 62.8 Lymph % (Auto) 21.7 19.3 [place] % (Auto) 14.3 H 13.4 H Eos % (Auto) 3.2 2.3 Baso % (Auto) 1.4 2.2 H Neut # (Auto) 1.6 L 1.9 Lymph # (Auto) 0.6 L 0.6 L [place] # (Auto) 0.4 0.4 Eos # (Auto) 0.1 0.1 Baso # (Auto) 0.0 0.1 WBC Differential . . Differential Comment Auto diff final Auto diff final Lab - Chemistry Results 05/31/18 05/31/18 06/01/18 18:00 22:13 04:45 Sodium 140 140 140 Potassium Chloride Carbon Dioxide Anion Gap BUN Creatinine Estimated GFR Random Glucose Calcium Magnesium 06/02/18 05:31 Sodium 137 Potassium 3.2 L Chloride 106 Carbon Dioxide 23.9 Anion Gap 7 BUN 9 Creatinine 0.67 Estimated GFR Greater than 89 Random Glucose 101 Calcium 8.2 L Magnesium 1.8 Imaging: ITS Impressions Head CTA 05/26/18 00:00 CONCLUSION: 1. See the MRI of the brain reported separately. 2. Unremarkable CTA. . . Head MRI 05/26/18 00:00 CONCLUSION: 1. Redemonstration of a large right frontoparietal mid to high convexity intraparenchymal hematoma measuring up to 5.2 cm with prominent surrounding vasogenic edema resulting in 4 mm right to left subfalcine shift. 2. Blood products extend to the ventricles with stable borderline ventricle size. 3. Redemonstration of 8 mm intraparenchymal hematoma in the left parietal high convexities without significant mass effect at this time. 4. No definitive abnormal enhancing mass is demonstrated. Extent of hemorrhage and associated abnormality can obscure a more subtle mass. Neck CTA 05/26/18 00:00 CONCLUSION: 1. Patent carotid arteries and vertebral arteries. Abdomen X-Ray 05/27/18 09:54 CONCLUSION: Dobbhoff feeding tube coiled in the stomach. Head CT 05/27/18 12:31 CONCLUSION: 1. 4.6 cm right frontal hemorrhage and 8mm left parietal hemorrhage are relatively stable. Tiny new focus of hemorrhage near the vertex on the left and slight increase in hemorrhage in the lateral ventricles since May 25. Fourth ventricular hemorrhage has decreased. Ventricular size is stable. . . Venous Doppler Study 05/29/18 00:00 CONCLUSION: 1. Occlusive DVT of the left common femoral vein and superficial femoral vein diffusely. 2. No evidence of DVT in the right lower extremity. Chest X-Ray 05/31/18 06:00 CONCLUSION: Cardiomegaly with interstitial densities likely interstitial edema. Physical Exam: GENERAL: awake and alert, not in respiratory distress. He is following commands, speech is clear SKIN: Warm and dry. No generalized rash, no ecchymoses and no evidence of embolic lesions. HEAD: Atraumatic. Normocephalic. No temporal wasting, or tenderness. EYES: [place] conjunctiva. No petechia or hemorrhage. Pupils equal, round and reactive to light. Extraocular movements full and intact. No scleral icterus. No injection or drainage. EARS, NOSE AND THROAT: Nose without bleeding or purulent nasal discharge. No sinus tenderness. Mucous membranes pink and moist. No oral lesions noted. No exudate. No oral thrush. NECK: Trachea midline. Supple and not tender, no meningeal signs CARDIOVASCULAR: Regular rate and rhythm. No murmurs, rubs or gallops heard RESPIRATORY: Clear to auscultation. Breath sounds equal bilaterally. No rales , wheezing or rhonchi ABDOMEN: Soft, nondistended, mild tenderness in L groin. Bowel sounds present and normoactive. No guarding. No rebound. No organomegaly. EXTREMITIES: No clubbing, cyanosis, or edema. No joint effusion, has good ROM. No calf tenderness. Well perfused and warm. NEUROLOGICAL: Awake and alert. Cranial nerves grossly intact. LUE weaker compared to the RLE PSYCHIATRIC: Flat affect, calm and cooperative. LINE: No evidence of infection Assessment and Plan - Plan Impression Sepsis, has (+) BC with pleomorphic GPR, source? concern is endocarditis - ?lactobacillus - TTE with abnormal MV - has been having on and off fevers since Mar 2018 - ?stroke due to IE Pain L groin, ?iliopsoas seeding Neutropenia, with increased monos in diff ICH DVT SLE Recommendation Follow repeat BC CT A/P to evaluate L groin pain Continue Vanco IV PCN Stop Rocephin Await ID of the pleomorphic rods Follow C/S and adjust Abx Wait for clearing of BC before placement of IVC filter Will need PICC once BC clear Monitor progress Explained plan to patient and , answered all their questions
[2018-06-02] MEDS ORDERED: Diatrizoate Meglum/Diatrizoate Sod Liq 9 ML UDC PO ONE (11:30)
--- NOTE | 2018-06-02 11:55 | P.PNIM ---
Subjective Interval history: Follow-up intracranial hemorrhage and bacteremia. Patient has no complaints seen with who reports that his speech is much improved. ID ordered a CT of the left inguinal because of pain Physical Exam Vital signs: Vital Signs 06/01/18 12:00 06/01/18 12:01 06/01/18 12:26 Temperature Pulse Rate 64 65 64 Respiratory Rate 12 12 11 L Blood Pressure 159/85 H 139/84 Pulse Oximetry 98 98 99 06/01/18 12:28 06/01/18 12:30 06/01/18 12:33 Temperature Pulse Rate 70 82 82 Respiratory Rate 15 8 L 14 Blood Pressure 135/75 124/75 117/76 Pulse Oximetry 99 98 100 06/01/18 12:35 06/01/18 12:38 06/01/18 12:40 Temperature Pulse Rate 76 77 76 Respiratory Rate 13 13 15 Blood Pressure 120/77 128/75 127/79 Pulse Oximetry 100 100 100 06/01/18 12:43 06/01/18 12:45 06/01/18 12:48 Temperature Pulse Rate 77 75 76 Respiratory Rate 15 15 14 Blood Pressure 125/78 121/78 133/83 Pulse Oximetry 100 100 100 06/01/18 12:50 06/01/18 12:53 06/01/18 12:55 Temperature Pulse Rate 66 77 70 Respiratory Rate 10 L 19 14 Blood Pressure 134/77 142/79 H 129/81 Pulse Oximetry 100 100 100 06/01/18 12:58 06/01/18 13:00 06/01/18 13:03 Temperature Pulse Rate 66 64 66 Respiratory Rate 17 14 13 Blood Pressure 143/83 H 139/81 141/87 H Pulse Oximetry 99 99 100 06/01/18 13:15 06/01/18 13:30 06/01/18 13:45 Temperature Pulse Rate 65 62 63 Respiratory Rate 12 12 11 L Blood Pressure 146/82 H 150/78 H 146/88 H Pulse Oximetry 100 100 100 06/01/18 14:00 06/01/18 14:15 06/01/18 14:30 Temperature Pulse Rate 73 73 84 Respiratory Rate 19 20 19 Blood Pressure 148/84 H 148/92 H 145/101 H Pulse Oximetry 100 99 99 06/01/18 14:40 06/01/18 14:45 06/01/18 14:56 Temperature 98 F Pulse Rate 83 81 91 H Respiratory Rate 24 21 19 Blood Pressure 146/96 H 141/92 H Pulse Oximetry 99 99 99 06/01/18 16:00 06/01/18 18:18 06/01/18 18:19 Temperature Pulse Rate 75 Respiratory Rate Blood Pressure 142/85 H Pulse Oximetry 97 06/01/18 19:00 06/01/18 19:18 06/01/18 20:00 Temperature 98 F Pulse Rate 77 79 84 Respiratory Rate 16 16 15 Blood Pressure 148/92 H Pulse Oximetry 98 98 98 06/01/18 20:18 06/01/18 21:00 06/01/18 21:18 Temperature Pulse Rate 91 H 90 82 Respiratory Rate 17 15 16 Blood Pressure 152/92 H 157/81 H Pulse Oximetry 97 97 96 06/01/18 21:53 06/01/18 22:00 06/01/18 22:18 Temperature Pulse Rate 79 80 69 Respiratory Rate 20 15 Blood Pressure 143/89 H Pulse Oximetry 96 96 06/01/18 23:00 06/01/18 23:18 06/01/18 23:54 Temperature Pulse Rate 67 66 Respiratory Rate 12 12 15 Blood Pressure 145/86 H Pulse Oximetry 96 96 06/02/18 00:00 06/02/18 00:18 06/02/18 04:00 Temperature 97.8 F Pulse Rate 74 68 Respiratory Rate 16 16 16 Blood Pressure 146/90 H Pulse Oximetry 98 99 06/02/18 04:30 06/02/18 06:00 06/02/18 08:00 Temperature 98.1 F 98.0 F Pulse Rate 69 76 Respiratory Rate 18 18 16 Blood Pressure 140/82 155/94 H Pulse Oximetry 98 100 Intake & Output 06/01/18 06/02/18 06/02/18 18:59 06:59 18:59 Intake Total 600 / 600 500 / 500 Balance 600 / 600 500 / 500 Intake: IV 600 / 600 500 / 500 Vancomycin Inj 1,000 MG In NS 500 / 500 500 / 500 Inj 250 ML @ 250 mls/hr IV.SIG Q8H [facility] Rx#:[id number] Rocephin Inj 2,000 MG In NS Inj 100 / 100 100 ML @ 200 mls/hr IV.SIG Q24H [facility] Rx#:[id number] Other: # Voids 4 # Incontinent Voids 1 Date of Last Bowel Movement 05/29/18 05/29/18 Narrative: GEN: 57-year-old male lying in bed, GCS 14. Right gaze preference resolved LUNGS: Air entry equal bilaterally no wheezes or crackles HEART: S1 and S2 normal, no murmurs. ABDOMEN: Soft. Nontender EXTREMITIES: No pedal edema. NEUROLOGIC: Patient is oriented to person and intermittently to place. Awake and alert. Left hemiparesis improved, left facial droop improving. 4 out of 5 power in the left upper and lower extremity. Normal right upper and lower extremity speech is normal Urinary Catheter Management Condom: Cath placed during this visit: no Results Labs CBC & Chem 7: 06/02/18 05:31 06/02/18 05:31 Labs: Microbiology 06/01/18 14:52 Blood - Peripheral Aerobic Blood Culture - Preliminary No growth in 1 day 06/01/18 14:52 Blood - Peripheral Anaerobic Blood Culture - Preliminary No growth in 1 day 05/31/18 13:00 Blood - Peripheral Aerobic Blood Culture - Preliminary No growth in 2 days 05/31/18 13:00 Blood - Peripheral Anaerobic Blood Culture - Preliminary No growth in 2 days 05/31/18 13:00 Blood - Line Aerobic Blood Culture - Preliminary No growth in 2 days 05/31/18 13:00 Blood - Line Anaerobic Blood Culture - Preliminary No growth in 2 days Imaging Imaging: ITS Impressions Head CTA 05/26/18 00:00 CONCLUSION: 1. See the MRI of the brain reported separately. 2. Unremarkable CTA. . . Head MRI 05/26/18 00:00 CONCLUSION: 1. Redemonstration of a large right frontoparietal mid to high convexity intraparenchymal hematoma measuring up to 5.2 cm with prominent surrounding vasogenic edema resulting in 4 mm right to left subfalcine shift. 2. Blood products extend to the ventricles with stable borderline ventricle size. 3. Redemonstration of 8 mm intraparenchymal hematoma in the left parietal high convexities without significant mass effect at this time. 4. No definitive abnormal enhancing mass is demonstrated. Extent of hemorrhage and associated abnormality can obscure a more subtle mass. Neck CTA 05/26/18 00:00 CONCLUSION: 1. Patent carotid arteries and vertebral arteries. Abdomen X-Ray 05/27/18 09:54 CONCLUSION: Dobbhoff feeding tube coiled in the stomach. Head CT 05/27/18 12:31 CONCLUSION: 1. 4.6 cm right frontal hemorrhage and 8mm left parietal hemorrhage are relatively stable. Tiny new focus of hemorrhage near the vertex on the left and slight increase in hemorrhage in the lateral ventricles since May 25. Fourth ventricular hemorrhage has decreased. Ventricular size is stable. . . Venous Doppler Study 05/29/18 00:00 CONCLUSION: 1. Occlusive DVT of the left common femoral vein and superficial femoral vein diffusely. 2. No evidence of DVT in the right lower extremity. Chest X-Ray 05/31/18 06:00 CONCLUSION: Cardiomegaly with interstitial densities likely interstitial edema. Procedures Procedures: ARMOND Assessment and Plan Plan NEURO: Large right frontal intraparenchymal hematoma with intraventricular extension Mass-effect on the right frontal lobe, 5 mm midline shift to the left. Encephalopathy -S/p K-centra 2500 units x1 -Follow-up CT of the head 05/25, remained stable, MRI brain 05/27/2018 remains stable -No further clinical deterioration noted -Neurologically improving, will stop 3% sodium chloride -Keppra 500 mg every 12 for seizure prophylaxis -If clinical deterioration plan for EVD however at this point no signs of hydrocephalus -PT/OT/speech, Out of bed daily. Needs intensive rehab RESP: -DuoNeb every 2 hours as needed. IS, ezPAP -Aggressive pulmonary toilet CV: History of hypertension - DC 3% saline -Cardene infusion to keep blood pressure less than 140/90, IV hydralazine as needed GI: -Tolerating diet -Speech pathology following and appreciated : -Monitor renal function closely. HEME/ID: Fever Gram-positive bacteremia (pleomorphic gram-positive rods) Sepsis Chronic anticoagulation with apixaban History of DVT Hx SLE -4/4 bottles from 05/29/2018 pleomorphic gram-positive rods -Vancomycin 1 g IV x1 and pharmacy to dose. -2D echo w abnormal MV. ARMOND cant r/o MV endocarditis -chest x-ray no acute infiltrate -Venous duplex shows occlusive DVT of the left lower extremity, denies leg pain with no swelling likely chronic. Left mid basilic vein thrombosis. -IR consult for IVC filter placement when cleared by ID and heme (awaiting outside records to confirm if DVT is chronic 0 -Monitor CBC, coags -s/p K Centra 2500 units x1 on arrival to ICU ENDO: -Electrolyte replacement per protocol -Sliding scale insulin if needed PROPH: -Discontinue left SCDs/WILLIAN. Chemical DVT prophylaxis cleared by Dr. Ramesh but dc CCM- Heparin 5000 units subcu every 12. LINES: -Utilize peripheral IVs, dc central line Progress Note: Quality VTE Deep Vein Thrombosis/Pulmonary Embolism Present on Admission: No
[2018-06-02] MEDS: PENICILLIN POTASSIUM IV.SIG SCH ×4 (13:31→23:25)
[2018-06-02] MEDS: SODIUM CHLOR 0.9% IV.SIG SCH ×4 (13:31→23:25)
--- NOTE | 2018-06-02 14:52 | P.PNONC ---
Subjective Interval history: Patient sitting up in bed, in no acute distress. Nurse at bedside. Patient reports left groin pain today. States that he feels like he pulled a muscle possibly getting out of bed. Denies any chest pain, shortness of breath or bleeding. Nurse reports that request for records was recent this morning. Objective Vital Signs/Intake & Output: Vital Signs 06/01/18 14:56 06/01/18 16:00 06/01/18 18:18 Temperature Pulse Rate 91 H 75 Respiratory Rate 19 Blood Pressure 142/85 H Pulse Oximetry 99 06/01/18 18:19 06/01/18 19:00 06/01/18 19:18 Temperature 98 F Pulse Rate 77 79 Respiratory Rate 16 16 Blood Pressure 148/92 H Pulse Oximetry 97 98 98 06/01/18 20:00 06/01/18 20:18 06/01/18 21:00 Temperature Pulse Rate 84 91 H 90 Respiratory Rate 15 17 15 Blood Pressure 152/92 H Pulse Oximetry 98 97 97 06/01/18 21:18 06/01/18 21:53 06/01/18 22:00 Temperature Pulse Rate 82 79 80 Respiratory Rate 16 20 Blood Pressure 157/81 H Pulse Oximetry 96 96 06/01/18 22:18 06/01/18 23:00 06/01/18 23:18 Temperature Pulse Rate 69 67 66 Respiratory Rate 15 12 12 Blood Pressure 143/89 H 145/86 H Pulse Oximetry 96 96 96 06/01/18 23:54 06/02/18 00:00 06/02/18 00:18 Temperature 97.8 F Pulse Rate 74 68 Respiratory Rate 15 16 16 Blood Pressure 146/90 H Pulse Oximetry 98 99 06/02/18 04:00 06/02/18 04:30 06/02/18 06:00 Temperature 98.1 F Pulse Rate 69 Respiratory Rate 16 18 18 Blood Pressure 140/82 Pulse Oximetry 98 06/02/18 08:00 06/02/18 12:00 Temperature 98.0 F 98.1 F Pulse Rate 76 78 Respiratory Rate 16 16 Blood Pressure 155/94 H 141/91 H Pulse Oximetry 100 98 Intake & Output 06/01/18 06/02/18 06/02/18 18:59 06:59 18:59 Intake Total 600 / 600 500 / 500 350 / 350 Balance 600 / 600 500 / 500 350 / 350 Intake: IV 600 / 600 500 / 500 350 / 350 Pfizerpen-G Inj 3,000,000 UNIT 100 / 100 In NS Inj 100 ML @ 200 mls/hr IV.SIG Q4H [facility] Rx#:[id number] Vancomycin Inj 1,000 MG In NS 500 / 500 500 / 500 250 / 250 Inj 250 ML @ 250 mls/hr IV.SIG Q8H [facility] Rx#:[id number] Rocephin Inj 2,000 MG In NS Inj 100 / 100 100 ML @ 200 mls/hr IV.SIG Q24H [facility] Rx#:[id number] Other: # Voids 4 # Incontinent Voids 1 Date of Last Bowel Movement 05/29/18 05/29/18 Result Diagrams: 06/02/18 05:31 06/02/18 05:31 Laboratory Results: Laboratory Results - last 24 hr 06/01/18 06/02/18 06/02/18 14:52 05:31 05:31 WBC 2.6 L 3.0 L RBC 4.01 L 3.92 L Hgb 12.9 L D 12.4 L Hct 37.0 L 35.4 L MCV 92.1 90.2 MCH 32.2 31.6 MCHC 35.0 35.0 RDW 13.4 13.5 Plt Count 109 L 108 L MPV 8.4 8.0 Neut % (Auto) 59.4 62.8 Lymph % (Auto) 21.7 19.3 Morehouse % (Auto) 14.3 H 13.4 H Eos % (Auto) 3.2 2.3 Baso % (Auto) 1.4 2.2 H Neut # (Auto) 1.6 L 1.9 Lymph # (Auto) 0.6 L 0.6 L [place]house # (Auto) 0.4 0.4 Eos # (Auto) 0.1 0.1 Baso # (Auto) 0.0 0.1 WBC Differential . . Differential Comment Auto diff final Auto diff final Sodium 137 Potassium 3.2 L Chloride 106 Carbon Dioxide 23.9 Anion Gap 7 BUN 9 Creatinine 0.67 Estimated GFR Greater than 89 Random Glucose 101 Calcium 8.2 L Magnesium 1.8 Vancomycin Trough 06/02/18 11:15 WBC RBC Hgb Hct MCV MCH MCHC RDW Plt Count MPV Neut % (Auto) Lymph % (Auto) Morehouse % (Auto) Eos % (Auto) Baso % (Auto) Neut # (Auto) Lymph # (Auto) Morehouse # (Auto) Eos # (Auto) Baso # (Auto) WBC Differential Differential Comment Sodium Potassium Chloride Carbon Dioxide Anion Gap BUN Creatinine Estimated GFR Random Glucose Calcium Magnesium Vancomycin Trough 16.1 H Culture Results: Microbiology 06/01/18 14:52 Aerobic Blood Culture - Preliminary Blood - Peripheral No growth in 1 day Anaerobic Blood Culture - Preliminary No growth in 1 day 05/31/18 13:00 Aerobic Blood Culture - Preliminary Blood - Peripheral No growth in 2 days Anaerobic Blood Culture - Preliminary No growth in 2 days 05/31/18 13:00 Aerobic Blood Culture - Preliminary Blood - Line No growth in 2 days Anaerobic Blood Culture - Preliminary No growth in 2 days Medications: Active Medications Generic Name Dose Route Start Last Admin Trade Name Freq PRN Reason Stop Dose Admin Acetaminophen 650 mg 05/27/18 20:13 06/02/18 14:19 Tylenol PO 650 mg Q6H PRN Administration FEVER Hydralazine HCl 20 mg 05/25/18 06:56 06/01/18 07:17 Apresoline Inj IV.PUSH 20 mg Q4H PRN Administration sbp>150 Vancomycin HCl 1,000 mg/ 250 mls @ 250 mls/hr 05/30/18 19:00 06/02/18 13:31 Sodium Chloride IV.SIG Infused Q8H [facility] Infusion Penicillin G Potassium 3,000, 100 mls @ 200 mls/hr 06/02/18 12:00 06/02/18 14 :00 000 unit/ Sodium Chloride IV.SIG Infused Q4H [facility] Infusion Lactulose 30 ml 05/29/18 13:00 06/02/18 12:26 Lactulose Liq PO Not Given TID [facility] Levetiracetam 500 mg 06/01/18 09:00 06/02/18 09:23 Keppra PO 500 mg BID [facility] Administration Melatonin 5 mg 05/30/18 17:07 06/01/18 21:45 Melatonin PO 5 mg HS PRN Administration SLEEP Pantoprazole Sodium 40 mg 06/01/18 09:00 06/02/18 09:23 Protonix PO 40 mg DAILY [facility] Administration Senna/Docusate Sodium 2 tab 05/29/18 09:30 06/02/18 09:23 Jocelyn-Colace PO 2 tab BID [facility] Administration Sodium Chloride 2 ml 05/25/18 09:00 06/02/18 09:24 Ns Flush IV.FLUSH 2 ml BID [facility] Administration Objective Remarks: GENERAL: Well-nourished, well-developed male patient, in no acute distress. SKIN: Warm and dry. HEAD: Normocephalic. EYES: No scleral icterus. No injection or drainage. NECK: Supple, trachea midline. CARDIOVASCULAR: Regular rate and rhythm without murmurs. RESPIRATORY: Anterior breath sounds clear, equal bilaterally. No use of accessory muscles noted. GASTROINTESTINAL: Abdomen soft, non-tender, nondistended. EXTREMITIES: No cyanosis, or edema. MUSCULOSKELETAL: Adequate muscle tone. NEUROLOGICAL: No obvious focal deficit. Awake, alert, and oriented x3. PSYCHIATRIC: Appropriate mood and affect; insight and judgment normal. Assessment/Plan - Plan Mr. Lloyd is a pleasant 57-year-old gentleman currently hospitalized after intracranial bleed and sepsis. He has a history of DVT to left lower extremity , incidentally diagnosed 8 years ago. He was treated with Xarelto, repeat ultrasound 1/2 years later DVT had become calcified. Hematology was consulted for recommendations in regards to DVT in a patient who has intracranial hemorrhage. Plan: 1. DVT, chronic in nature. Will confirm history of chronic DVT once we have obtained records from [employer] engineer in [place]. Patient now with intracranial hemorrhage, we do not recommend anticoagulation at this time. Would recommend IVC filter, however patient currently has gram-positive sepsis and endocarditis , therefore he cannot have IVC filter placed. Discussed holding all anticoagulations with the patient and his . Request for records refax this morning, discussed with RN. 2. Intracranial hemorrhage, hold anticoagulation as risks outweigh benefits. 3. DVT is likely chronic in nature, patient may proceed with physical therapy. 4. Left groin pain, CT abdomen pelvis pending. - Attending Statement The exam, history, and the medical decision-making described in the above note were completed with the assistance of the mid-level provider. I reviewed and agree with the findings presented. I attest that I had a [id number] encounter with the patient on the same day, and personally performed and documented my assessment and findings in the medical record. Patient denies any new complaint is at bedside Still have not received any records from [place] His will coordinate with floor agriculture mechanic to requests the records from his [employer]ada engineer from [place] Patient is getting treatment for sepsis. IVC cannot be placed at this time because of the sepsis Stop subcu heparin because of intracranial hemorrhage Discussed with patient and his
--- NOTE | 2018-06-02 16:12 | P.DIET ---
Nutritional Evaluation Type of nutrition evaluation: follow-up Nutrition consult regarding: Tube Feeding (TFing stopped 05/29) Objective - Diagnosis intracranial bleed - Objective % IBW: 108 (IBW = 172lb) Body Weight Used for Calculations: Actual (84kg) Energy Needs - Lower Range (kCal/kg): 28 Energy Needs - Upper Range (kCal/kg): 32 Lower Limit kCal/kg (kCals): 2,352 Upper Limit kCal/kg (kCals): 2,688 Lower Limit Protein Factor (Grams per Kg): 1.2 Upper Limit Protein Factor (Grams per Kg): 1.4 Lower Protein Needs (Protein): 101 Upper Protein Needs (Protein): 118 Dietitian Reviewed in Medical Record: Current diet, Curent medications, Intake & Output, Labs, Medical history, Tube feeding Diet Order: Regular Speech Therapy Recommendations: Yes (Regular) Assessment Assessment: Pt's TF stopped on 05/29 and diet now advanced to Regular. Adequate po intake has not yet been established. RD will monitor and assess for the need of supplements. Recommendations: Continue current diet Dietitian to Monitor: Lab values, Glucose level, Intake & Output, Diet tolerance , Weight change, PO Intake, Medical course
--- NOTE | 2018-06-02 20:52 | CT ---
EXAM DATE: 06/02/2018 8:44 PM EST AGE/SEX: 57 years / Male INDICATIONS: Left groin pain. Evaluate for abscess. CLINICAL DATA: This is the patient's initial encounter. Patient reports that signs and symptoms have been present for 1 day and indicates a pain score of 0/10. MEDICAL/SURGICAL HISTORY: Deep venous thrombosis. Lupus. Raynaud phenomenon. None. ORAL CONTRAST: Prescribed oral contrast ingested. RADIATION DOSE: 11.19 CTDI (mGy) COMPARISON: No prior exams available for comparison. TECHNIQUE: Multiple contiguous axial images were obtained through the abdomen and pelvis following b olus infusion of 100 ml Omnipaque 350 (iohexol) nonionic water-soluble contrast as a single exam do se. Prescribed oral contrast ingested. Using automated exposure control and adjustment of the mA and /or kV according to patient size, radiation dose was kept as low as reasonably achievable to obtain o ptimal diagnostic quality images. DICOM format image data is available electronically for review and comparison. FINDINGS: Lower Lungs: Small pleural effusions not and bibasilar atelectasis. Liver: The liver has a homogeneous density without space-occupying lesion. There is no dilation of th e biliary tree. Spleen: Homogeneous density without enlargement. Pancreas: Unremarkable without mass or calcification. Kidneys: Normal in size and shape. No evidence of mass or hydronephrosis. Small right renal low-dens ity. Adrenal Glands: Unremarkable. Aorta: The aorta and proximal iliac vessels are grossly unremarkable without aneurysmal dilation. Bowel/Mesentery: No bowel obstruction or acute inflammatory process. There is induration/stranding s een within the fat posterior to the rectum and anterior to the sacrum of uncertain etiology but could be related to previous radiation or other abnormality.. Abdominal Wall: Intact. Retroperitoneum: No evidence of adenopathy in the retrocrural, para-aortic, or deep pelvic regions. Bladder: Contours are smooth. Mild distention. Reproductive Organs: No abnormal masses or calcifications seen. Inguinal: The inguinal region is unremarkable without evidence of adenopathy. There is disease in th e groin bilaterally greater on the left. Bony Structures: Mild compression fracture of L2, likely old. CONCLUSION: 1. Small pleural effusions and bibasilar densities likely atelectasis. 2. Right renal low-density likely cyst. 3. Induration/stranding in the presacral fat of uncertain etiology but could be related to previous radiation exposure or other inflammatory abnormality. 4. Varices in the groin bilaterally slightly greater on the left. No abscess seen. Electronically signed by: Aquilino Taylor MD Board Certified Radiologist 06/02/2018 8:50 PM EST
[2018-06-02] MEDS: Melatonin 5 MG Tablet PO PRN (21:33)
[2018-06-03 00:05] LABS: Eosinophils 1 % (0-4); Lymphocytes 17 % (9-44); Monocytes 9 % (0-8)
[2018-06-03 00:08] LABS: Burr Cells 1+; Platelet Morphology Normal (Normal)
[2018-06-03 00:10] LABS: Toxic Vacuolation Present
[2018-06-03] MEDS: Vancomycin Inj 1,000 MG in Sodium Chlor 0.9% Inj 250 ML IV.SIG SCH ×3 (03:06→18:00)
[2018-06-03] MEDS: PENICILLIN POTASSIUM IV.SIG SCH ×5 (04:22→20:19)
[2018-06-03] MEDS: SODIUM CHLOR 0.9% IV.SIG SCH ×5 (04:22→20:19)
[2018-06-03] MEDS: levETIRAcetam 500 MG Tablet PO SCH ×2 (09:34→20:19)
[2018-06-03] MEDS: Senna/Docusate Sodium 8.6/50 MG Tablet PO SCH ×2 (09:35→20:19)
--- NOTE | 2018-06-03 10:26 | P.PNONC ---
Subjective Interval history: Patient sitting in chair, physical therapy is at the bedside. He reports he feels constipated. He has received medications for this. No other complaints at this time. Objective Vital Signs/Intake & Output: Vital Signs 06/02/18 12:00 06/02/18 16:00 06/02/18 19:13 Temperature 98.1 F 98.2 F 98.0 F Pulse Rate 78 82 69 Respiratory Rate 16 16 18 Blood Pressure 141/91 H 135/87 143/86 H Pulse Oximetry 98 99 97 06/02/18 21:00 06/02/18 22:45 06/03/18 01:00 Temperature 97.9 F Pulse Rate 75 78 83 Respiratory Rate 18 Blood Pressure 148/89 H Pulse Oximetry 99 06/03/18 08:00 Temperature 97.6 F Pulse Rate 71 Respiratory Rate 20 Blood Pressure 155/94 H Pulse Oximetry 97 Intake & Output 06/02/18 06/03/18 06/03/18 18:59 06:59 18:59 Intake Total 450 / 450 800 / 800 Balance 450 / 450 800 / 800 Intake: IV 450 / 450 800 / 800 Pfizerpen-G Inj 3,000,000 UNIT 200 / 200 300 / 300 In NS Inj 100 ML @ 200 mls/hr IV.SIG Q4H MELISSA Rx#:[id number] Vancomycin Inj 1,000 MG In NS 250 / 250 500 / 500 Inj 250 ML @ 250 mls/hr IV.SIG Q8H MELISSA Rx#:[id number] Other: # Voids 6 Date of Last Bowel Movement 05/31/18 Result Diagrams: 06/02/18 05:31 06/02/18 05:31 Laboratory Results: Laboratory Results - last 24 hr 06/02/18 06/02/18 06/02/18 05:31 06:00 11:15 CBC w Diff Cancelled WBC Cancelled Corrected WBC Cancelled RBC Cancelled Hgb Cancelled Hct Cancelled MCV Cancelled MCH Cancelled MCHC Cancelled RDW Cancelled Plt Count Cancelled MPV Cancelled Prelim Diff (Auto) Slide review pending Cancelled Immature Gran % (Auto) Cancelled Neut % (Auto) Cancelled Lymph % (Auto) Cancelled Alger % (Auto) Cancelled Eos % (Auto) Cancelled Baso % (Auto) Cancelled Immature Gran # (Auto) Cancelled Neut # (Auto) Cancelled Lymph # (Auto) Cancelled Alger # (Auto) Cancelled Eos # (Auto) Cancelled Baso # (Auto) Cancelled WBC Differential Manual diff final Cancelled Diff Scan Cancelled Seg Neuts % (Manual) 73 H Cancelled Band Neuts % (Manual) Cancelled Lymphocytes % (Manual) 17 Cancelled Atypical Lymphs % (Man) Cancelled Monocytes % (Manual) 9 H Cancelled Eosinophils % (Manual) 1 Cancelled Basophils % (Manual) Cancelled Metamyelocytes % (Man) Cancelled Myelocytes % (Man) Cancelled Promyelocytes % (Man) Cancelled Blast Cells % (Manual) Cancelled Plasma Cell % (Manual) Cancelled Other Cells % Cancelled Abs Neuts (Manual) 2.2 Cancelled Nucleated RBCs/100 WBC Cancelled Differential Comment Human Relations Teacher Cancelled Hypersegmented Neuts Cancelled Smudge Cells Cancelled Toxic Granulation Cancelled Toxic Vacuolation Present H Cancelled Dohle Bodies Cancelled Platelet Estimate Low L Cancelled Platelet Morphology Normal Cancelled RBC Morphology Cancelled Dimorphic RBCs Cancelled Polychromasia Cancelled Basophilic Stippling Cancelled Spherocytes Cancelled Pappenheimer Bodies Cancelled Sickle Cells Cancelled Target Cells Cancelled Tear Drop Cells Cancelled Ovalocytes Cancelled Stomatocytes Cancelled Helmet Cells Cancelled Weir-Hillside Bodies Cancelled Krish Cells 1+ H Cancelled Acanthocytes (Spur) Cancelled Rouleaux Cancelled Keratocytes Occ H Cancelled Hematology Comments Cancelled Vancomycin Trough 16.1 H Culture Results: Microbiology 06/01/18 14:52 Aerobic Blood Culture - Preliminary Blood - Peripheral No growth in 1 day Anaerobic Blood Culture - Preliminary No growth in 1 day 05/31/18 13:00 Aerobic Blood Culture - Preliminary Blood - Peripheral No growth in 2 days Anaerobic Blood Culture - Preliminary No growth in 2 days 05/31/18 13:00 Aerobic Blood Culture - Preliminary Blood - Line No growth in 2 days Anaerobic Blood Culture - Preliminary No growth in 2 days Imaging Studies: Impressions Abdomen/Pelvis CT 06/02/18 00:00 CONCLUSION: 1. Small pleural effusions and bibasilar densities likely atelectasis. 2. Right renal low-density likely cyst. 3. Induration/stranding in the presacral fat of uncertain etiology but could be related to previous radiation exposure or other inflammatory abnormality. 4. Varices in the groin bilaterally slightly greater on the left. No abscess seen. Medications: Active Medications Generic Name Dose Route Start Last Admin Trade Name Freq PRN Reason Stop Dose Admin Acetaminophen 650 mg 05/27/18 20:13 06/02/18 14:19 Tylenol PO 650 mg Q6H PRN Administration FEVER Hydralazine HCl 20 mg 05/25/18 06:56 06/01/18 07:17 Apresoline Inj IV.PUSH 20 mg Q4H PRN Administration sbp>150 Vancomycin HCl 1,000 mg/ 250 mls @ 250 mls/hr 05/30/18 19:00 06/03/18 04:37 Sodium Chloride IV.SIG Infused Q8H MELISSA Infusion Penicillin G Potassium 3,000, 100 mls @ 200 mls/hr 06/02/18 12:00 06/03/18 09 :42 000 unit/ Sodium Chloride IV.SIG 200 mls/hr Q4H MELISSA Administration Lactulose 30 ml 05/29/18 13:00 06/03/18 09:35 Lactulose Liq PO 30 ml TID MELISSA Administration Levetiracetam 500 mg 06/01/18 09:00 06/03/18 09:34 Keppra PO 500 mg BID MELISSA Administration Melatonin 5 mg 05/30/18 17:07 06/02/18 21:33 Melatonin PO 5 mg HS PRN Administration SLEEP Pantoprazole Sodium 40 mg 06/01/18 09:00 06/03/18 09:35 Protonix PO 40 mg DAILY MELISSA Administration Senna/Docusate Sodium 2 tab 05/29/18 09:30 06/03/18 09:35 Jocelyn-Colace PO 2 tab BID MELISSA Administration Sodium Chloride 2 ml 05/25/18 09:00 06/03/18 09:36 Ns Flush IV.FLUSH 2 ml BID MELISSA Administration Objective Remarks: GENERAL: Well-nourished, well-developed male patient, in no acute distress. SKIN: Warm and dry. HEAD: Normocephalic. EYES: No scleral icterus. No injection or drainage. NECK: Supple, trachea midline. CARDIOVASCULAR: Regular rate and rhythm without murmurs. RESPIRATORY: Posterior breath sounds clear, equal bilaterally. Nonlabored. GASTROINTESTINAL: Abdomen soft, non-tender, nondistended. EXTREMITIES: No cyanosis, or edema. MUSCULOSKELETAL: Adequate muscle tone. NEUROLOGICAL: No obvious focal deficit. Awake, alert, and oriented x3. PSYCHIATRIC: Appropriate mood and affect; insight and judgment normal. Assessment/Plan - Plan Mr. Lloyd is a pleasant 57-year-old gentleman currently hospitalized after intracranial bleed and sepsis. He has a history of DVT to left lower extremity , incidentally diagnosed 8 years ago. He was treated with Xarelto, repeat ultrasound 1/2 years later DVT had become calcified. Hematology was consulted for recommendations in regards to DVT in a patient who has intracranial hemorrhage. Plan: 1. DVT, chronic in nature. Reviewed records from patient's driver/refuse collector in [place], he has a history of left leg DVT and pulmonary embolism in 2013, repeat Doppler ultrasound in 2014 showed a partial clot proximal left femoral artery, this study was done on 06/11/2014. 2. Intracranial hemorrhage, hold anticoagulation as risks outweigh benefits. 3. Sepsis with endocarditis, management per infectious disease. - Attending Statement The exam, history, and the medical decision-making described in the above note were completed with the assistance of the mid-level provider. I reviewed and agree with the findings presented. I attest that I had a [id number] encounter with the patient on the same day, and personally performed and documented my assessment and findings in the medical record. Patient denies any new complaint is at bedside. 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 Not a candidate for anticoagulation Discussed with patient and regarding IVC filter again. Dr. Olsen from infectious disease has cleared him to have the filter put in now that the blood cultures are negative. Consult IR for IVC filter tomorrow morning Patient and both have agreed.
--- NOTE | 2018-06-03 12:24 | P.PNIM ---
Subjective Interval history: Follow-up intracranial hemorrhage, DVT in bacteremia. He is doing okay denies headache or dizziness. No leg pain. Physical Exam Vital signs: Vital Signs 06/02/18 16:00 06/02/18 19:13 06/02/18 21:00 Temperature 98.2 F 98.0 F Pulse Rate 82 69 75 Respiratory Rate 16 18 Blood Pressure 135/87 143/86 H Pulse Oximetry 99 97 06/02/18 22:45 06/03/18 01:00 06/03/18 08:00 Temperature 97.9 F 97.6 F Pulse Rate 78 83 71 Respiratory Rate 18 20 Blood Pressure 148/89 H 155/94 H Pulse Oximetry 99 97 06/03/18 12:00 Temperature 97.8 F Pulse Rate 91 H Respiratory Rate 16 Blood Pressure 127/80 Pulse Oximetry 98 Intake & Output 06/02/18 06/03/18 06/03/18 18:59 06:59 18:59 Intake Total 450 / 450 800 / 800 Balance 450 / 450 800 / 800 Intake: IV 450 / 450 800 / 800 Pfizerpen-G Inj 3,000,000 UNIT 200 / 200 300 / 300 In NS Inj 100 ML @ 200 mls/hr IV.SIG Q4H MELISSA Rx#:[id number] Vancomycin Inj 1,000 MG In NS 250 / 250 500 / 500 Inj 250 ML @ 250 mls/hr IV.SIG Q8H MELISSA Rx#:[id number] Other: # Voids 6 Date of Last Bowel Movement 05/31/18 Narrative: GEN: 57-year-old male lying in bed, GCS 14. Right gaze preference resolved LUNGS: Air entry equal bilaterally no wheezes or crackles HEART: S1 and S2 normal, no murmurs. ABDOMEN: Soft. Nontender EXTREMITIES: No pedal edema. NEUROLOGIC: Patient is oriente. Awake and alert. Left hemiparesis improved, left facial droop improving. 4 out of 5 power in the left upper and lower extremity. Normal right upper and lower extremity speech is normal Urinary Catheter Management Condom: Cath placed during this visit: no Results Labs CBC & Chem 7: 06/02/18 05:31 06/02/18 05:31 Labs: Microbiology 06/01/18 14:52 Blood - Peripheral Aerobic Blood Culture - Preliminary No growth in 2 days 06/01/18 14:52 Blood - Peripheral Anaerobic Blood Culture - Preliminary No growth in 2 days 05/31/18 13:00 Blood - Peripheral Aerobic Blood Culture - Preliminary No growth in 3 days 05/31/18 13:00 Blood - Peripheral Anaerobic Blood Culture - Preliminary No growth in 3 days 05/31/18 13:00 Blood - Line Aerobic Blood Culture - Preliminary No growth in 3 days 05/31/18 13:00 Blood - Line Anaerobic Blood Culture - Preliminary No growth in 3 days 05/29/18 12:23 Blood - Peripheral Aerobic Blood Culture - Preliminary pleomorphic gram positive rods 05/29/18 12:23 Blood - Peripheral Anaerobic Blood Culture - Preliminary pleomorphic gram positive rods 05/29/18 12:17 Blood - Peripheral Aerobic Blood Culture - Preliminary pleomorphic gram positive rods 05/29/18 12:17 Blood - Peripheral Anaerobic Blood Culture - Preliminary pleomorphic gram positive rods Imaging Imaging: ITS Impressions Head CTA 05/26/18 00:00 CONCLUSION: 1. See the MRI of the brain reported separately. 2. Unremarkable CTA. . . Head MRI 05/26/18 00:00 CONCLUSION: 1. Redemonstration of a large right frontoparietal mid to high convexity intraparenchymal hematoma measuring up to 5.2 cm with prominent surrounding vasogenic edema resulting in 4 mm right to left subfalcine shift. 2. Blood products extend to the ventricles with stable borderline ventricle size. 3. Redemonstration of 8 mm intraparenchymal hematoma in the left parietal high convexities without significant mass effect at this time. 4. No definitive abnormal enhancing mass is demonstrated. Extent of hemorrhage and associated abnormality can obscure a more subtle mass. Neck CTA 05/26/18 00:00 CONCLUSION: 1. Patent carotid arteries and vertebral arteries. Abdomen X-Ray 05/27/18 09:54 CONCLUSION: Dobbhoff feeding tube coiled in the stomach. Head CT 05/27/18 12:31 CONCLUSION: 1. 4.6 cm right frontal hemorrhage and 8mm left parietal hemorrhage are relatively stable. Tiny new focus of hemorrhage near the vertex on the left and slight increase in hemorrhage in the lateral ventricles since May 25. Fourth ventricular hemorrhage has decreased. Ventricular size is stable. . . Venous Doppler Study 05/29/18 00:00 CONCLUSION: 1. Occlusive DVT of the left common femoral vein and superficial femoral vein diffusely. 2. No evidence of DVT in the right lower extremity. Chest X-Ray 05/31/18 06:00 CONCLUSION: Cardiomegaly with interstitial densities likely interstitial edema. Abdomen/Pelvis CT 06/02/18 00:00 CONCLUSION: 1. Small pleural effusions and bibasilar densities likely atelectasis. 2. Right renal low-density likely cyst. 3. Induration/stranding in the presacral fat of uncertain etiology but could be related to previous radiation exposure or other inflammatory abnormality. 4. Varices in the groin bilaterally slightly greater on the left. No abscess seen. Procedures Procedures: ARMOND Assessment and Plan Plan NEURO: Large right frontal intraparenchymal hematoma with intraventricular extension Mass-effect on the right frontal lobe, 5 mm midline shift to the left. Encephalopathy -S/p K-centra 2500 units x1 -Follow-up CT of the head 05/25, remained stable, MRI brain 05/27/2018 remains stable -No further clinical deterioration noted -Neurologically improving, will stop 3% sodium chloride -Keppra 500 mg every 12 for seizure prophylaxis -If clinical deterioration plan for EVD however at this point no signs of hydrocephalus -PT/OT/speech, Out of bed daily. Needs intensive rehab RESP: -DuoNeb every 2 hours as needed. IS, ezPAP -Aggressive pulmonary toilet CV: History of hypertension - DC 3% saline -Cardene infusion to keep blood pressure less than 140/90, IV hydralazine as needed GI: -Tolerating diet -Speech pathology following and appreciated : -Monitor renal function closely. HEME/ID: Fever Gram-positive bacteremia (pleomorphic gram-positive rods) Sepsis Chronic anticoagulation with apixaban History of DVT Hx SLE -4/4 bottles from 05/29/2018 pleomorphic gram-positive rods -Vancomycin 1 g IV x1 and pharmacy to dose. -2D echo w abnormal MV. ARMOND cant r/o MV endocarditis -chest x-ray no acute infiltrate -Venous duplex shows occlusive DVT of the left lower extremity, denies leg pain with no swelling likely chronic. Left mid basilic vein thrombosis. -IR consult for IVC filter placement when cleared by ID and heme -Monitor CBC, coags -s/p K Centra 2500 units x1 on arrival to ICU ENDO: -Electrolyte replacement per protocol -Sliding scale insulin if needed PROPH: -Discontinue left SCDs/WILLIAN. Chemical DVT prophylaxis dc by Heme risk > benefits LINES: -Utilize peripheral IVs, dc central line Progress Note: Quality VTE Deep Vein Thrombosis/Pulmonary Embolism Present on Admission: No
[2018-06-03] MEDS: Acetaminophen 325 MG Tablet PO PRN ×2 (13:47→20:26)
--- NOTE | 2018-06-03 14:19 | P.PNID ---
Subjective Remarks: Patient is a 57-year-old male, brought in to the hospital at [facility] complaining of 3-day history of generalized weakness, altered mental status, and he was noted to have left-sided weakness. In the ED he was found to have a right frontal intraparenchymal hematoma with intraventricular extension. There was some mass-effect on the right frontal lobe with a 5 mm midline shift to the left. There was also another intraparenchymal hematoma seen in the left posterior frontal cortex. Patient was transferred to [facility] for neurosurgical evaluation. Since admission he had some deterioration in his mentation, however imaging study showed the same. He was put on hypertonic saline, and it seems that his neurological status has stabilized. Patient has been in the hospital since May 25. On May 27 he started having low-grade fevers, and on May 29 he spiked. 2 blood cultures were drawn, and yesterday it was reported as growing pleomorphic gram- positive sivakumar. Patient has some low-grade fevers today. He has some frontal headache. Trans-thoracic echocardiogram is showing abnormality in the mitral valve with thickened leaflets, cannot rule out endocarditis. On further questioning, patient apparently has been having on and off fevers since around March. The first time he had fevers he went to an urgent care center, and at that time he has a lesion on 1 of his fingers, and he was given an antibiotic for infection on his finger. Most of the time his temperatures are between 992 100. The second time he had fevers he went to the urgent care center again, and he had some upper respiratory symptoms at that time, and he was apparently given doxycycline. The last time he had some upper respiratory symptoms again, and he was given amoxicillin which he took for about 6 days, he was not improving, so he went back to the urgent care center, and more workup was done at that time and it was decided that he did not have any respiratory infections so his antibiotic was stopped. This was about 3 weeks ago. Patient has not had any prior history of blood infection or endocarditis. He has not had any prior history of IV drug use. He has no prior history of skin infection , except the one in March on his finger. Infectious disease consultation has been requested to assist with evaluation and treatment of positive blood culture. Notes reviewed D/W Dr Carey D/W Kendra Jolly ([facility]eme) Temps ok ARMOND with vegetation in MV Still C/O L groin pain CT A/P no abscess C/O constipation Repeat BC negative so far Not taking any probiotic at [facility]jome NO previous colonoscopy; OB negative done as outpatient No GI problems previously WBC 3.0 - has increased monos BC with pleomorphic GPR, ID pending Repeat BC all negative Antibiotics: Vancomycin PCN G K Past Medical History: DVT (deep venous thrombosis) Lupus (systemic lupus erythematosus) Raynaud phenomenon Allergies/Adverse Reactions: Allergies No Known Allergies Allergy (Verified 05/25/18 06:51) Objective Vital Signs 06/02/18 16:00 06/02/18 19:13 06/02/18 21:00 Temperature 98.2 F 98.0 F Pulse Rate 82 69 75 Respiratory Rate 16 18 Blood Pressure 135/87 143/86 H Pulse Oximetry 99 97 06/02/18 22:45 06/03/18 01:00 06/03/18 08:00 Temperature 97.9 F 97.6 F Pulse Rate 78 83 71 Respiratory Rate 18 20 Blood Pressure 148/89 H 155/94 H Pulse Oximetry 99 97 06/03/18 12:00 Temperature 97.8 F Pulse Rate 91 H Respiratory Rate 16 Blood Pressure 127/80 Pulse Oximetry 98 Intake & Output 06/02/18 06/03/18 06/03/18 18:59 06:59 18:59 Intake Total 450 / 450 800 / 800 100 / 100 Balance 450 / 450 800 / 800 100 / 100 Intake: IV 450 / 450 800 / 800 100 / 100 Pfizerpen-G Inj 3,000,000 UNIT 200 / 200 300 / 300 100 / 100 In NS Inj 100 ML @ 200 mls/hr IV.SIG Q4H MELISSA Rx#:[id number] Vancomycin Inj 1,000 MG In NS 250 / 250 500 / 500 Inj 250 ML @ 250 mls/hr IV.SIG Q8H MELISSA Rx#:[id number] Other: # Voids 6 Date of Last Bowel Movement 05/31/18 06/01/18 14:52 Blood - Peripheral Aerobic Blood Culture - Preliminary No growth in 2 days 06/01/18 14:52 Blood - Peripheral Anaerobic Blood Culture - Preliminary No growth in 2 days 05/31/18 13:00 Blood - Peripheral Aerobic Blood Culture - Preliminary No growth in 3 days 05/31/18 13:00 Blood - Peripheral Anaerobic Blood Culture - Preliminary No growth in 3 days 05/31/18 13:00 Blood - Line Aerobic Blood Culture - Preliminary No growth in 3 days 05/31/18 13:00 Blood - Line Anaerobic Blood Culture - Preliminary No growth in 3 days 05/29/18 12:23 Blood - Peripheral Aerobic Blood Culture - Preliminary pleomorphic gram positive rods 05/29/18 12:23 Blood - Peripheral Anaerobic Blood Culture - Preliminary pleomorphic gram positive rods 05/29/18 12:17 Blood - Peripheral Aerobic Blood Culture - Preliminary pleomorphic gram positive rods 05/29/18 12:17 Blood - Peripheral Anaerobic Blood Culture - Preliminary pleomorphic gram positive rods 05/29/18 12:17 Other - Pending Lab - Hematology Results 06/01/18 06/02/18 06/02/18 14:52 05:31 06:00 CBC w Diff Cancelled WBC 2.6 L 3.0 L Cancelled Corrected WBC Cancelled RBC 4.01 L 3.92 L Cancelled Hgb 12.9 L D 12.4 L Cancelled Hct 37.0 L 35.4 L Cancelled MCV 92.1 90.2 Cancelled MCH 32.2 31.6 Cancelled MCHC 35.0 35.0 Cancelled RDW 13.4 13.5 Cancelled Plt Count 109 L 108 L Cancelled MPV 8.4 8.0 Cancelled Prelim Diff (Auto) Slide review pending Cancelled Immature Gran % (Auto) Cancelled Neut % (Auto) 59.4 62.8 Cancelled Lymph % (Auto) 21.7 19.3 Cancelled [place] % (Auto) 14.3 H 13.4 H Cancelled Eos % (Auto) 3.2 2.3 Cancelled Baso % (Auto) 1.4 2.2 H Cancelled Immature Gran # (Auto) Cancelled Neut # (Auto) 1.6 L 1.9 Cancelled Lymph # (Auto) 0.6 L 0.6 L Cancelled [place] # (Auto) 0.4 0.4 Cancelled Eos # (Auto) 0.1 0.1 Cancelled Baso # (Auto) 0.0 0.1 Cancelled WBC Differential . Manual diff final Cancelled Diff Scan Cancelled Seg Neuts % (Manual) 73 H Cancelled Band Neuts % (Manual) Cancelled Lymphocytes % (Manual) 17 Cancelled Atypical Lymphs % (Man) Cancelled Monocytes % (Manual) 9 H Cancelled Eosinophils % (Manual) 1 Cancelled Basophils % (Manual) Cancelled Metamyelocytes % (Man) Cancelled Myelocytes % (Man) Cancelled Promyelocytes % (Man) Cancelled Blast Cells % (Manual) Cancelled Plasma Cell % (Manual) Cancelled Other Cells % Cancelled Abs Neuts (Manual) 2.2 Cancelled Nucleated RBCs/100 WBC Cancelled Differential Comment Auto diff final Tower Watchman Cancelled Hypersegmented Neuts Cancelled Smudge Cells Cancelled Toxic Granulation Cancelled Toxic Vacuolation Present H Cancelled Dohle Bodies Cancelled Platelet Estimate Low L Cancelled Platelet Morphology Normal Cancelled RBC Morphology Cancelled Dimorphic RBCs Cancelled Polychromasia Cancelled Basophilic Stippling Cancelled Spherocytes Cancelled Pappenheimer Bodies Cancelled Sickle Cells Cancelled Target Cells Cancelled Tear Drop Cells Cancelled Ovalocytes Cancelled Stomatocytes Cancelled Helmet Cells Cancelled Weir-Stratton Bodies Cancelled [place] Cells 1+ H Cancelled Acanthocytes (Spur) Cancelled Rouleaux Cancelled Keratocytes Occ H Cancelled Hematology Comments Cancelled Lab - Chemistry Results 06/02/18 05:31 Sodium 137 Potassium 3.2 L Chloride 106 Carbon Dioxide 23.9 Anion Gap 7 BUN 9 Creatinine 0.67 Estimated GFR Greater than 89 Random Glucose 101 Calcium 8.2 L Magnesium 1.8 Imaging: ITS Impressions Head CTA 05/26/18 00:00 CONCLUSION: 1. See the MRI of the brain reported separately. 2. Unremarkable CTA. . . Head MRI 05/26/18 00:00 CONCLUSION: 1. Redemonstration of a large right frontoparietal mid to high convexity intraparenchymal hematoma measuring up to 5.2 cm with prominent surrounding vasogenic edema resulting in 4 mm right to left subfalcine shift. 2. Blood products extend to the ventricles with stable borderline ventricle size. 3. Redemonstration of 8 mm intraparenchymal hematoma in the left parietal high convexities without significant mass effect at this time. 4. No definitive abnormal enhancing mass is demonstrated. Extent of hemorrhage and associated abnormality can obscure a more subtle mass. Neck CTA 05/26/18 00:00 CONCLUSION: 1. Patent carotid arteries and vertebral arteries. Abdomen X-Ray 05/27/18 09:54 CONCLUSION: Dobbhoff feeding tube coiled in the stomach. Head CT 05/27/18 12:31 CONCLUSION: 1. 4.6 cm right frontal hemorrhage and 8mm left parietal hemorrhage are relatively stable. Tiny new focus of hemorrhage near the vertex on the left and slight increase in hemorrhage in the lateral ventricles since May 25. Fourth ventricular hemorrhage has decreased. Ventricular size is stable. . . Venous Doppler Study 05/29/18 00:00 CONCLUSION: 1. Occlusive DVT of the left common femoral vein and superficial femoral vein diffusely. 2. No evidence of DVT in the right lower extremity. Chest X-Ray 05/31/18 06:00 CONCLUSION: Cardiomegaly with interstitial densities likely interstitial edema. Abdomen/Pelvis CT 06/02/18 00:00 CONCLUSION: 1. Small pleural effusions and bibasilar densities likely atelectasis. 2. Right renal low-density likely cyst. 3. Induration/stranding in the presacral fat of uncertain etiology but could be related to previous radiation exposure or other inflammatory abnormality. 4. Varices in the groin bilaterally slightly greater on the left. No abscess seen. Physical Exam: GENERAL: awake and alert, not in respiratory distress. He is following commands, speech is clear SKIN: Warm and dry. No generalized rash, no ecchymoses and no evidence of embolic lesions. HEAD: Atraumatic. Normocephalic. No temporal wasting, or tenderness. EYES: [place] conjunctiva. No petechia or hemorrhage. Pupils equal, round and reactive to light. Extraocular movements full and intact. No scleral icterus. No injection or drainage. EARS, NOSE AND THROAT: Nose without bleeding or purulent nasal discharge. No sinus tenderness. Mucous membranes pink and moist. No oral lesions noted. No exudate. No oral thrush. NECK: Trachea midline. Supple and not tender, no meningeal signs CARDIOVASCULAR: Regular rate and rhythm. No murmurs, rubs or gallops heard RESPIRATORY: Clear to auscultation. Breath sounds equal bilaterally. No rales , wheezing or rhonchi ABDOMEN: Soft, nondistended, mild tenderness in L groin. Bowel sounds present and normoactive. No guarding. No rebound. No organomegaly. EXTREMITIES: No clubbing, cyanosis, or edema. No joint effusion, has good ROM. No calf tenderness. Well perfused and warm. NEUROLOGICAL: Awake and alert. Cranial nerves grossly intact. LUE weaker compared to the RLE PSYCHIATRIC: Flat affect, calm and cooperative. LINE: No evidence of infection Assessment and Plan - Plan Impression Sepsis, has (+) BC with pleomorphic GPR, source? concern is endocarditis - ?lactobacillus - TTE with abnormal MV - has been having on and off fevers since Mar 2018 - ?stroke due to IE Pain L groin, ?iliopsoas seeding Neutropenia, with increased monos in diff ICH DVT SLE Recommendation Follow repeat BC Continue Vanco Continue IV PCN Argueta cath Follow C/S and adjust Abx OK for IVC filter and line placement Explained plan to patient and D/W RN D/W Kendra Jolly ([facility]eme) and Dr Carey ([facility])
[2018-06-03] MEDS: Melatonin 5 MG Tablet PO PRN (20:26)
[2018-06-04] MEDS: SODIUM CHLOR 0.9% IV.SIG SCH ×6 (00:01→21:32)
[2018-06-04] MEDS: PENICILLIN POTASSIUM IV.SIG SCH ×6 (00:01→21:32)
[2018-06-04] MEDS: Vancomycin Inj 1,000 MG in Sodium Chlor 0.9% Inj 250 ML IV.SIG SCH ×3 (03:10→19:07)
[2018-06-04 06:29] LABS: Baso # (Auto) 0.1 th/mm3 (0.0-0.2); Baso % (Auto) 1.8 % (0.0-2.0); Eos # (Auto) 0.1 th/mm3 (0.0-0.4); Eos % (Auto) 2.2 % (0.0-4.0); Hematocrit 30.2 % (39.0-51.0); Hemoglobin 10.8 gm/dL (13.0-17.0); Lymph # (Auto) 0.5 th/mm3 (1.0-4.8); Lymph % (Auto) 17.6 % (9.0-44.0); Mean Corpuscular HGB Conc 35.7 % (32.0-36.0); Mean Corpuscular Volume 89.7 fL (80.0-100.0); Mean Platelet Volume 7.9 fL (7.0-11.0); Mono # (Auto) 0.4 th/mm3 (0.0-0.9); Mono % (Auto) 13.8 % (0.0-8.0); Neut % (Auto) 64.6 % (16.0-70.0); Platelet Count 120 th/mm3 (150-450); Red Blood Count 3.37 mil/mm3 (4.50-5.90); Red Cell Distribution Width 13.4 % (11.6-17.2); White Blood Count 3.1 th/mm3 (4.0-11.0)
[2018-06-04 06:55] LABS: Anion Gap 7 meq/L (5-15); Blood Urea Nitrogen 7 mg/dL (7-18); Calcium 8.5 mg/dL (8.5-10.1); Carbon Dioxide 26.3 meq/L (21.0-32.0); Chloride 105 meq/L (98-107); Glomerular Filtration Rate Greater Than 89 mL/min (>89); Glucose,Random 96 mg/dL (74-106); Potassium 3.4 meq/L (3.5-5.1); Sodium 138 meq/L (136-145)
[2018-06-04] MEDS: levETIRAcetam 500 MG Tablet PO SCH ×2 (09:59→21:40)
[2018-06-04] MEDS: Senna/Docusate Sodium 8.6/50 MG Tablet PO SCH ×2 (10:35→21:40)
[2018-06-04] MEDS ORDERED: fentaNYL Citrate Inj 250 MCG/5 ML Ampul ONE (11:24)
[2018-06-04] MEDS ORDERED: *Heparin Central Flush 100 UNIT/ML 5 ML Vial PERIprocedural ONLY IV.FLUSH ONE (11:40)
[2018-06-04] MEDS ORDERED: Lidocaine 1%/Epinephrine 1:100,000 Inj 20 ML Vial ONE (11:41)
[2018-06-04] MEDS ORDERED: Iohexol 350 MG/ML 50 ML Vial (for Rad Diag) IVCONTRAST ONE (12:44)
[2018-06-04] MEDS ORDERED: Heparin Central Flush 100 UNIT/ML 5 ML Vial IV.FLUSH PRN (13:03)
--- NOTE | 2018-06-04 13:06 | P.RAD ---
Post Procedure Progress Note - Pre Procedure Diagnosis (1) Intraventricular hemorrhage (2) Chronic deep vein thrombosis (DVT) - Post Procedure Diagnosis (1) Intraventricular hemorrhage (2) Chronic deep vein thrombosis (DVT) - Procedure Information Procedure Date: 06/04/18 Supervising Radiologist: Miles Park Jr, MD Proceduralist/Assist: Camille Amos Estimated blood loss (mL): 0 Anesthesia: Conscious Sedation - Plan of Activity Patient to Unit: ROPU Patient Condition: Good See PACS Report for procedural detail/treatment. Vascular - Venous Procedure Abdominal Procedure(s): Retrievable IVC Filter - Additional Information Findings: Placed retrievable IVC filter. Can be removed up to one year from todays date. Plan: To ROPU CVAD Radiology Procedures right Internal Jugular Tunneled Central Line Placement Device: dual lumen Turkish: 7 - Additional Detail Findings: Placed RIJ iyer catheter. Functions well. OK to use.
--- NOTE | 2018-06-04 16:07 | P.PNONC ---
Subjective Interval history: Afebrile Patient seen and examined this afternoon. No family members at bedside. He is asleep on approach but awakens easily to verbal stimuli. Denies bleeding or headache. Asking to use the urinal Objective Vital Signs/Intake & Output: Vital Signs 06/03/18 20:00 06/03/18 21:56 06/04/18 00:00 Temperature 97.7 F 98 F Pulse Rate 111 H 72 Respiratory Rate 16 16 18 Blood Pressure 146/87 H 133/82 Pulse Oximetry 97 98 06/04/18 04:00 06/04/18 07:52 06/04/18 12:35 Temperature 97.8 F 98 F 97.6 F Pulse Rate 70 61 73 Respiratory Rate 18 16 16 Blood Pressure 163/94 H 139/67 152/82 H Pulse Oximetry 93 L 98 94 L 06/04/18 12:50 Temperature Pulse Rate 76 Respiratory Rate 16 Blood Pressure 154/87 H Pulse Oximetry 94 L Intake & Output 06/03/18 06/04/18 06/04/18 18:59 06:59 18:59 Intake Total 1270 / 1270 800 / 800 100 / 100 Output Total 1425 / 1425 Balance -155 / -155 800 / 800 100 / 100 Weight 199 lb 4.766 oz Intake: IV 550 / 550 800 / 800 100 / 100 Pfizerpen-G Inj 3,000,000 UNIT 300 / 300 300 / 300 100 / 100 In NS Inj 100 ML @ 200 mls/hr IV.SIG Q4H MELISSA Rx#:[id number] Vancomycin Inj 1,000 MG In NS 250 / 250 500 / 500 Inj 250 ML @ 250 mls/hr IV.SIG Q8H MELISSA Rx#:[id number] Oral 720 / 720 Output: Urine 1425 / 1425 Other: # Voids 950 Date of Last Bowel Movement 05/31/18 05/31/18 05/31/18 Result Diagrams: 06/04/18 05:24 06/04/18 05:24 Laboratory Results: Laboratory Results - last 24 hr 06/04/18 06/04/18 05:24 05:24 WBC 3.1 L RBC 3.37 L Hgb 10.8 L Hct 30.2 L MCV 89.7 MCH 32.0 MCHC 35.7 RDW 13.4 Plt Count 120 L MPV 7.9 Neut % (Auto) 64.6 Lymph % (Auto) 17.6 [place] % (Auto) 13.8 H Eos % (Auto) 2.2 Baso % (Auto) 1.8 Neut # (Auto) 2.0 Lymph # (Auto) 0.5 L [place] # (Auto) 0.4 Eos # (Auto) 0.1 Baso # (Auto) 0.1 WBC Differential . Differential Comment Auto diff final Sodium 138 Potassium 3.4 L Chloride 105 Carbon Dioxide 26.3 Anion Gap 7 BUN 7 Creatinine 0.66 Estimated GFR Greater than 89 Random Glucose 96 Calcium 8.5 Magnesium 2.0 Culture Results: Microbiology 06/01/18 14:52 Aerobic Blood Culture - Preliminary Blood - Peripheral No growth in 3 days Anaerobic Blood Culture - Preliminary No growth in 3 days 05/31/18 13:00 Aerobic Blood Culture - Preliminary Blood - Peripheral No growth in 4 days Anaerobic Blood Culture - Preliminary No growth in 4 days 05/31/18 13:00 Aerobic Blood Culture - Preliminary Blood - Line No growth in 4 days Anaerobic Blood Culture - Preliminary No growth in 4 days 05/29/18 12:17 - Final Other 05/29/18 12:23 Aerobic Blood Culture - Preliminary Blood - Peripheral pleomorphic gram positive rods Anaerobic Blood Culture - Preliminary pleomorphic gram positive rods 05/29/18 12:17 Aerobic Blood Culture - Preliminary Blood - Peripheral pleomorphic gram positive rods Anaerobic Blood Culture - Preliminary pleomorphic gram positive rods Medications: Active Medications Generic Name Dose Route Start Last Admin Trade Name Freq PRN Reason Stop Dose Admin Acetaminophen 650 mg 05/27/18 20:13 06/03/18 20:26 Tylenol PO 650 mg Q6H PRN Administration FEVER Hydralazine HCl 20 mg 05/25/18 06:56 06/01/18 07:17 Apresoline Inj IV.PUSH 20 mg Q4H PRN Administration sbp>150 Vancomycin HCl 1,000 mg/ 250 mls @ 250 mls/hr 05/30/18 19:00 06/04/18 04:03 Sodium Chloride IV.SIG Infused Q8H MELISSA Infusion Penicillin G Potassium 3,000, 100 mls @ 200 mls/hr 06/02/18 12:00 06/04/18 14 :56 000 unit/ Sodium Chloride IV.SIG Not Given Q4H MELISSA Lactulose 30 ml 05/29/18 13:00 06/04/18 15:05 Lactulose Liq PO Not Given TID MELISSA Levetiracetam 500 mg 06/01/18 09:00 06/04/18 09:59 Keppra PO 500 mg BID MELISSA Administration Melatonin 5 mg 05/30/18 17:07 06/03/18 20:26 Melatonin PO 5 mg HS PRN Administration SLEEP Pantoprazole Sodium 40 mg 06/01/18 09:00 06/04/18 10:35 Protonix PO Not Given DAILY MELISSA Senna/Docusate Sodium 2 tab 05/29/18 09:30 06/04/18 10:35 Jocelyn-Colace PO Not Given BID MELISSA Sodium Chloride 2 ml 05/25/18 09:00 06/04/18 10:35 Ns Flush IV.FLUSH 2 ml BID MELISSA Administration Objective Remarks: GENERAL: Well-nourished, well-developed male patient, in no acute distress. SKIN: Warm and dry. HEAD: Normocephalic. EYES: No scleral icterus. No injection or drainage. NECK: Supple, trachea midline. CARDIOVASCULAR: Regular rate and rhythm without murmurs. RESPIRATORY: Posterior breath sounds clear, equal bilaterally. Nonlabored. GASTROINTESTINAL: Abdomen soft, non-tender, nondistended. EXTREMITIES: No cyanosis. Left lower extremity swelling MUSCULOSKELETAL: Adequate muscle tone. NEUROLOGICAL: No obvious focal deficit. Awake, alert, and oriented x3. Assessment/Plan - Plan Mr. Lloyd is a pleasant 57-year-old gentleman currently hospitalized after intracranial bleed and sepsis. He has a history of DVT to left lower extremity , incidentally diagnosed 8 years ago. He was treated with Xarelto, repeat ultrasound 1/2 years later DVT had become calcified. Hematology was consulted for recommendations in regards to DVT in a patient who has intracranial hemorrhage. Plan: 1. DVT, chronic in nature. Reviewed records from patient's faculty member in [place], he has a history of left leg DVT and pulmonary embolism in 2013, repeat Doppler ultrasound in 2014 showed a partial clot proximal left femoral artery, this study was done on 06/11/2014. 2. Intracranial hemorrhage, hold anticoagulation as risks outweigh benefits. Patient received IVC filter today. He remains on Keppra for seizure prophylaxis. 3. Continue to monitor CBC. - Attending Statement The exam, history, and the medical decision-making described in the above note were completed with the assistance of the mid-level provider. I reviewed and agree with the findings presented. I attest that I had a [id number] encounter with the patient on the same day, and personally performed and documented my assessment and findings in the medical record. Patient denies any pain or bleeding. He had IVC filter placed in by IR today He tolerated well. Anticoagulation for left leg DVT is contraindicated due to severe intracranial bleeding Discussed with patient's
--- NOTE | 2018-06-04 16:34 | IR ---
EXAM DATE: 06/04/2018 12:50 PM EST AGE/SEX: 57 years / Male INDICATIONS: Patient presents with weakness and DVT here for Argueta catheter for treatment. CLINICAL DATA: This is the patient's initial encounter. Patient reports that signs and symptoms have been present for 2 days and indicates a pain score of 0/10. MEDICAL/SURGICAL HISTORY: Deep venous thrombosis. Lupus. None. COMPARISON: . FLUORO TIME (min): 2.8 IMAGE SERIES: 1 RADIATION DOSE: 41.9mGy CAK SEDATION TIME (min): 30 MEDICATION(S): 1.5mg midazolam (Versed) IV 75mcg fentanyl (Sublimaze) IV DEVICE(S): Right 9F Argueta Dual Lumen . . PROCEDURE : 1. Fluoroscopic guidance. 2. Argueta catheter placement 3. Conscious sedation with continuous EKG and oximetry monitoring. The risks, benefits and alternatives to the procedure were explained and verbal and written consent w as obtained. The site was prepped in sterile fashion. Full sterile technique was used, including ca p, mask, sterile gloves and gown and a large sterile sheet. Hand hygiene and 2% chlorhexidine and Be tadine was utilized per protocol for cutaneous antisepsis with appropriate dry time for site. The sk in and subcutaneous tissues were infiltrated with local anesthetic solution. With fluoroscopic guidance a dermatotomy was created in the supraclavicular region. A micropuncture set was used to access to the prescribed vein and serial dilatation was performed to accept a Argueta catheter. A subcutaneous tunnel was created and in antegrade fashion the catheter was pulled throug h the tunnel, cut to the appropriate length and place through the sheath. The catheter was locked wi th heparin and sutured in place. Conscious sedation was performed with the prescribed dosages and duration as above in the presence of an independent trained radiology nurse to assist in the monitoring of the patient. EKG and oximetry remained stable throughout the procedure. The patient tolerated the procedure well and there were no complications. The patient was sent to post anesthesia recovery in stable condition. CONCLUSION: 1. Uncomplicated Argueta catheter placement as above. Electronically signed by: Miles Park MD Board Certified Radiologist 06/04/2018 4:33 PM EST
--- NOTE | 2018-06-04 17:18 | IR ---
EXAM DATE: 06/04/2018 12:49 PM EST AGE/SEX: 57 years / Male INDICATIONS: Patient presents with DVT here for an IVC filter. CLINICAL DATA: This is the patient's initial encounter. Patient reports that signs and symptoms have been present for 1 week and indicates a pain score of 0/10. MEDICAL/SURGICAL HISTORY: Deep venous thrombosis. Lupus. None. COMPARISON: No prior exams available for comparison. FLUORO TIME (min): 2.8 IMAGE SERIES: 4 RADIATION DOSE: 41.9mGy CAK ACCESS SITE: Right external jugular vein SEDATION TIME (min): 30 CONTRAST (cc): 30cc Omnipaque (iohexol) 350 MEDICATION(S): 1.5mg midazolam (Versed) IV 75mcg fentanyl (Sublimaze) IV DEVICE(S): IVC [place] Retrievable Filter Jugular . . PROCEDURE : 1. Ultrasound-guided venipuncture. 2. Inferior venacavogram. 3. Inferior vena cava filter placement. 4. Conscious sedation with continuous EKG and oximetry monitoring. The risks, benefits and alternatives to the procedure were explained and verbal and written consent w as obtained. The site was prepped in sterile fashion. Full sterile technique was used, including ca p, mask, sterile gloves and gown and a large sterile sheet. Hand hygiene and 2% chlorhexidine and/or betadine/alcohol prep was utilized per protocol for cutaneous antisepsis. Sterile gel and sterile p robe cover were utilized for ultrasound guidance. The skin and subcutaneous tissues were infiltrated with local anesthetic solution. With ultrasound and fluoroscopic guidance the targeted vein was punctured and a vascular sheath was p laced. Inferior venacavogram was performed to demonstrate level of renal veins. No caval thrombus was identified. The prescribed filter was deployed in the infrarenal inferior vena cava. Following deplo yment the filter was identified in good position. Conscious sedation was performed with the prescribed dosages and duration as above in the presence of an independent trained radiology nurse to assist in the monitoring of the patient. EKG and oximetry remained stable throughout the procedure. The patient tolerated the procedure well and there were n o complications. The patient was sent to post anesthesia recovery in stable condition. CONCLUSION: 1. Uncomplicated inferior vena cava filter placement as above. This is a retrievable filter. This ca n be retrieved up to one year from today's date. Electronically signed by: Miles Park MD Board Certified Radiologist 06/04/2018 5:17 PM EST
--- NOTE | 2018-06-04 18:08 | P.PNIM ---
Subjective Interval history: Patient lying in bed. Says he is feeling right. Denies any chest pain or shortness of breath. Denies any pain. No bowel movement in 3 days, however has not been eating much. Denies any nausea or vomiting. Denies any abdominal pain. Physical Exam Vital signs: Vital Signs 06/03/18 20:00 06/03/18 21:56 06/04/18 00:00 Temperature 97.7 F 98 F Pulse Rate 111 H 72 Respiratory Rate 16 16 18 Blood Pressure 146/87 H 133/82 Pulse Oximetry 97 98 06/04/18 04:00 06/04/18 07:52 06/04/18 12:35 Temperature 97.8 F 98 F 97.6 F Pulse Rate 70 61 73 Respiratory Rate 18 16 16 Blood Pressure 163/94 H 139/67 152/82 H Pulse Oximetry 93 L 98 94 L 06/04/18 12:50 06/04/18 13:03 06/04/18 13:18 Temperature Pulse Rate 76 78 78 Respiratory Rate 16 16 16 Blood Pressure 154/87 H 149/88 H 144/89 H Pulse Oximetry 94 L 95 95 06/04/18 13:48 06/04/18 15:11 Temperature 98 F Pulse Rate 78 Respiratory Rate 16 Blood Pressure 144/89 H 149/88 H Pulse Oximetry 100 Intake & Output 06/03/18 06/04/18 06/04/18 18:59 06:59 18:59 Intake Total 1270 / 1270 800 / 800 100 / 100 Output Total 1425 / 1425 Balance -155 / -155 800 / 800 100 / 100 Weight 90.4 kg Intake: IV 550 / 550 800 / 800 100 / 100 Pfizerpen-G Inj 3,000,000 UNIT 300 / 300 300 / 300 100 / 100 In NS Inj 100 ML @ 200 mls/hr IV.SIG Q4H MELISSA Rx#:[id number] Vancomycin Inj 1,000 MG In NS 250 / 250 500 / 500 Inj 250 ML @ 250 mls/hr IV.SIG Q8H MELISSA Rx#:[id number] Oral 720 / 720 Output: Urine 1425 / 1425 Other: # Voids 950 Date of Last Bowel Movement 05/31/18 05/31/18 05/31/18 Narrative: GENERAL: Patient lying in bed. Appears comfortable. SKIN: Warm and dry. HEAD: Normocephalic. EYES: No scleral icterus. No injection or drainage. NECK: Supple, trachea midline. No JVD. CARDIOVASCULAR: Regular rate and rhythm without murmurs, gallops, or rubs. RESPIRATORY: Breath sounds equal bilaterally. No accessory muscle use. GASTROINTESTINAL: Abdomen soft, non-tender, nondistended. MUSCULOSKELETAL: No cyanosis, or edema. BACK: Nontender without obvious deformity. No CVA tenderness. Urinary Catheter Management Condom: Cath placed during this visit: no Results Labs CBC & Chem 7: 06/04/18 05:24 06/04/18 05:24 Labs: Microbiology 06/01/18 14:52 Blood - Peripheral Aerobic Blood Culture - Preliminary No growth in 3 days 06/01/18 14:52 Blood - Peripheral Anaerobic Blood Culture - Preliminary No growth in 3 days 05/31/18 13:00 Blood - Peripheral Aerobic Blood Culture - Preliminary No growth in 4 days 05/31/18 13:00 Blood - Peripheral Anaerobic Blood Culture - Preliminary No growth in 4 days 05/31/18 13:00 Blood - Line Aerobic Blood Culture - Preliminary No growth in 4 days 05/31/18 13:00 Blood - Line Anaerobic Blood Culture - Preliminary No growth in 4 days 05/29/18 12:17 Other - Final Imaging Imaging: Impressions Argueta Line Insertion 06/04/18 00:00 CONCLUSION: 1. Uncomplicated Argueta catheter placement as above. IVC Filter Placement X-Ray 06/04/18 00:00 CONCLUSION: 1. Uncomplicated inferior vena cava filter placement as above. This is a retrievable filter. This can be retrieved up to one year from today's date. Procedures Procedures: ARMOND Assessment and Plan Plan NEURO: Large right frontal intraparenchymal hematoma with intraventricular extension Mass-effect on the right frontal lobe, 5 mm midline shift to the left. Encephalopathy -S/p K-centra 2500 units x1 -Follow-up CT of the head 05/25, remained stable, MRI brain 05/27/2018 remains stable -No further clinical deterioration noted -Neurologically improving, will stop 3% sodium chloride -Keppra 500 mg every 12 for seizure prophylaxis -If clinical deterioration plan for EVD however at this point no signs of hydrocephalus -PT/OT/speech, Out of bed daily. Needs intensive rehab = Neurosurgery has signed off. Continue off anticoagulation. RESP: -DuoNeb every 2 hours as needed. IS, ezPAP -Aggressive pulmonary toilet CV: History of hypertension - DC 3% saline -Blood pressure stable. Continue current regimen. GI: -Tolerating diet -Speech pathology following and appreciated : -Monitor renal function closely. HEME/ID: Fever Gram-positive bacteremia (pleomorphic gram-positive rods) Sepsis Chronic anticoagulation with apixaban History of DVT Hx SLE -07/08 bottles from 05/29/2018 pleomorphic gram-positive rods -Vancomycin 1 g IV x1 and pharmacy to dose. -2D echo w abnormal MV. ARMOND cant r/o MV endocarditis -chest x-ray no acute infiltrate -Venous duplex shows occlusive DVT of the left lower extremity, denies leg pain with no swelling likely chronic. Left mid basilic vein thrombosis. -IR consult for IVC filter placement when cleared by ID and heme -Monitor CBC, coags -s/p K Centra 2500 units x1 on arrival to ICU = 06/04. Status post IVC filter placement today. ENDO: -Electrolyte replacement per protocol -Sliding scale insulin if needed PROPH: -Discontinue left SCDs/WILLIAN. Chemical DVT prophylaxis dc by Heme risk > benefits LINES: -Utilize peripheral IVs, dc central line Discharge Planning: Repeat blood cultures from 06/01 pending. Will need ID clearance and final antibiotic recommendations.. Hopefully discharge in the next 2 days to rehab. Appreciate PT and case management assistance. Progress Note: Quality VTE Deep Vein Thrombosis/Pulmonary Embolism Present on Admission: No
[2018-06-04] MEDS: Melatonin 5 MG Tablet PO PRN (21:40)
[2018-06-05] MEDS: SODIUM CHLOR 0.9% IV.SIG SCH ×6 (01:30→21:00)
[2018-06-05] MEDS: PENICILLIN POTASSIUM IV.SIG SCH ×6 (01:30→21:00)
[2018-06-05] MEDS: Vancomycin Inj 1,000 MG in Sodium Chlor 0.9% Inj 250 ML IV.SIG SCH ×3 (02:02→18:47)
[2018-06-05] MEDS: Heparin Central Flush 100 UNIT/ML 5 ML Vial IV.FLUSH SCH (09:16)
[2018-06-05] MEDS: Senna/Docusate Sodium 8.6/50 MG Tablet PO SCH ×2 (09:16→21:40)
[2018-06-05] MEDS: levETIRAcetam 500 MG Tablet PO SCH ×2 (09:16→21:40)
[2018-06-05] MEDS ORDERED: Acetaminophen 325 MG Tablet PO PRN (11:11)
--- NOTE | 2018-06-05 11:13 | P.PNIM ---
Subjective Interval history: Right hand IV is hurting the patient. No other complaints. DC to SNF pending ID discharge recommendations. Physical Exam Vital signs: Vital Signs 06/04/18 12:35 06/04/18 12:50 06/04/18 13:03 Temperature 97.6 F Pulse Rate 73 76 78 Respiratory Rate 16 16 16 Blood Pressure 152/82 H 154/87 H 149/88 H Pulse Oximetry 94 L 94 L 95 06/04/18 13:18 06/04/18 13:48 06/04/18 15:11 Temperature 98 F Pulse Rate 78 78 Respiratory Rate 16 16 Blood Pressure 144/89 H 144/89 H 149/88 H Pulse Oximetry 95 100 06/04/18 16:00 06/04/18 17:00 06/04/18 18:00 Temperature Pulse Rate Respiratory Rate Blood Pressure 136/88 147/86 H 142/86 H Pulse Oximetry 06/04/18 20:00 06/05/18 00:00 06/05/18 04:00 Temperature 97.8 F 97.5 F L 97.8 F Pulse Rate 76 75 80 Respiratory Rate 18 18 18 Blood Pressure 151/87 H 149/93 H 152/79 H Pulse Oximetry 96 96 97 06/05/18 07:46 Temperature 98.1 F Pulse Rate 88 Respiratory Rate 18 Blood Pressure 123/70 Pulse Oximetry 95 Intake & Output 06/04/18 06/05/18 06/05/18 18:59 06:59 18:59 Intake Total 320 / 320 900 / 900 100 / 100 Output Total 900 / 900 1100 / 1100 Balance -580 / -580 -200 / -200 100 / 100 Weight 90.4 kg Intake: IV 100 / 100 900 / 900 100 / 100 Pfizerpen-G Inj 3,000,000 UNIT 100 / 100 400 / 400 100 / 100 In NS Inj 100 ML @ 200 mls/hr IV.SIG Q4H MELISSA Rx#:[id number] Vancomycin Inj 1,000 MG In NS 500 / 500 Inj 250 ML @ 250 mls/hr IV.SIG Q8H MELISSA Rx#:[id number] Oral 220 / 220 Output: Urine 900 / 900 1100 / 1100 Other: Date of Last Bowel Movement 05/31/18 05/07/18 05/07/18 Narrative: GENERAL: Patient lying in bed. Appears comfortable. SKIN: Warm and dry. HEAD: Normocephalic. EYES: No scleral icterus. No injection or drainage. NECK: Supple, trachea midline. No JVD. CARDIOVASCULAR: Regular rate and rhythm without murmurs, gallops, or rubs. RESPIRATORY: Breath sounds equal bilaterally. No accessory muscle use. GASTROINTESTINAL: Abdomen soft, non-tender, nondistended. MUSCULOSKELETAL: No cyanosis, or edema. BACK: Nontender without obvious deformity. No CVA tenderness. Urinary Catheter Management Condom: Cath placed during this visit: no Results Labs CBC & Chem 7: 06/04/18 05:24 06/04/18 05:24 Labs: Microbiology 06/01/18 14:52 Blood - Peripheral Aerobic Blood Culture - Preliminary No growth in 4 days 06/01/18 14:52 Blood - Peripheral Anaerobic Blood Culture - Preliminary No growth in 4 days 05/31/18 13:00 Blood - Peripheral Aerobic Blood Culture - Final No growth in 5 days 05/31/18 13:00 Blood - Peripheral Anaerobic Blood Culture - Final No growth in 5 days 05/31/18 13:00 Blood - Line Aerobic Blood Culture - Final No growth in 5 days 05/31/18 13:00 Blood - Line Anaerobic Blood Culture - Final No growth in 5 days Imaging Imaging: Impressions Argueta Line Insertion 06/04/18 00:00 CONCLUSION: 1. Uncomplicated Argueta catheter placement as above. IVC Filter Placement X-Ray 06/04/18 00:00 CONCLUSION: 1. Uncomplicated inferior vena cava filter placement as above. This is a retrievable filter. This can be retrieved up to one year from today's date. Procedures Procedures: ARMOND Assessment and Plan Plan 57-year-old male admitted secondary to intracranial bleed Large right frontal intraparenchymal hematoma with intraventricular extension Mass-effect on the right frontal lobe, 5 mm midline shift to the left. Encephalopathy Encephalopathy is improving Continue Keppra Continue PT Continue OT Continue speech therapy Neurosurgery has cleared patient for discharge Fever Gram-positive bacteremia (pleomorphic gram-positive rods) Sepsis Chronic anticoagulation with apixaban History of DVT Hx SLE Continue vancomycin ID following Awaiting discharge planning for antibiotic treatment Possible need for PICC line at discharge of IV antibiotics to continue, will await ID input prior to placement of PICC IVC filter has been placed Plan to remove central line after new peripheral line established today Progress Note: Quality VTE Deep Vein Thrombosis/Pulmonary Embolism Present on Admission: No
--- NOTE | 2018-06-05 14:25 | P.PNID ---
Subjective Remarks: Patient is a 57-year-old male, brought in to the hospital at [facility] complaining of 3-day history of generalized weakness, altered mental status, and he was noted to have left-sided weakness. In the ED he was found to have a right frontal intraparenchymal hematoma with intraventricular extension. There was some mass-effect on the right frontal lobe with a 5 mm midline shift to the left. There was also another intraparenchymal hematoma seen in the left posterior frontal cortex. Patient was transferred to [facility] for neurosurgical evaluation. Since admission he had some deterioration in his mentation, however imaging study showed the same. He was put on hypertonic saline, and it seems that his neurological status has stabilized. Patient has been in the hospital since May 25. On May 27 he started having low-grade fevers, and on May 29 he spiked. 2 blood cultures were drawn, and yesterday it was reported as growing pleomorphic gram- positive sivakumar. Patient has some low-grade fevers today. He has some frontal headache. Trans-thoracic echocardiogram is showing abnormality in the mitral valve with thickened leaflets, cannot rule out endocarditis. On further questioning, patient apparently has been having on and off fevers since around March. The first time he had fevers he went to an urgent care center, and at that time he has a lesion on 1 of his fingers, and he was given an antibiotic for infection on his finger. Most of the time his temperatures are between 992 100. The second time he had fevers he went to the urgent care center again, and he had some upper respiratory symptoms at that time, and he was apparently given doxycycline. The last time he had some upper respiratory symptoms again, and he was given amoxicillin which he took for about 6 days, he was not improving, so he went back to the urgent care center, and more workup was done at that time and it was decided that he did not have any respiratory infections so his antibiotic was stopped. This was about 3 weeks ago. Patient has not had any prior history of blood infection or endocarditis. He has not had any prior history of IV drug use. He has no prior history of skin infection , except the one in March on his finger. Infectious disease consultation has been requested to assist with evaluation and treatment of positive blood culture. Notes reviewed Has Ellie in place IVC placed C/S wont be available until mid next week - I spoke with micro C/O pain R hand where he has his IV Temps ok ARMOND with vegetation in MV L groin pain much improved Constipated CT A/P no abscess Repeat BC negative so far Not taking any probiotic at [facility] NO previous colonoscopy; OB negative done as outpatient No GI problems previously WBC 3.0 - has increased monos BC with pleomorphic GPR, ID pending Repeat BC all negative Antibiotics: Vancomycin PCN G K Past Medical History: DVT (deep venous thrombosis) Lupus (systemic lupus erythematosus) Raynaud phenomenon Allergies/Adverse Reactions: Allergies No Known Allergies Allergy (Verified 05/25/18 06:51) Objective Vital Signs 06/04/18 15:11 06/04/18 16:00 06/04/18 17:00 Temperature 98 F Pulse Rate 78 Respiratory Rate 16 Blood Pressure 149/88 H 136/88 147/86 H Pulse Oximetry 100 06/04/18 18:00 06/04/18 20:00 06/05/18 00:00 Temperature 97.8 F 97.5 F L Pulse Rate 76 75 Respiratory Rate 18 18 Blood Pressure 142/86 H 151/87 H 149/93 H Pulse Oximetry 96 96 06/05/18 04:00 06/05/18 07:46 06/05/18 12:00 Temperature 97.8 F 98.1 F 98.7 F Pulse Rate 80 88 86 Respiratory Rate 18 18 16 Blood Pressure 152/79 H 123/70 126/83 Pulse Oximetry 97 95 99 Intake & Output 06/04/18 06/05/18 06/05/18 18:59 06:59 18:59 Intake Total 320 / 320 900 / 900 200 / 200 Output Total 900 / 900 1100 / 1100 Balance -580 / -580 -200 / -200 200 / 200 Weight 90.4 kg Intake: IV 100 / 100 900 / 900 200 / 200 Pfizerpen-G Inj 3,000,000 UNIT 100 / 100 400 / 400 200 / 200 In NS Inj 100 ML @ 200 mls/hr IV.SIG Q4H MELISSA Rx#:[id number] Vancomycin Inj 1,000 MG In NS 500 / 500 Inj 250 ML @ 250 mls/hr IV.SIG Q8H MELISSA Rx#:[id number] Oral 220 / 220 Output: Urine 900 / 900 1100 / 1100 Other: Date of Last Bowel Movement 05/31/18 05/07/18 05/07/1819 14:52 Blood - Peripheral Aerobic Blood Culture - Preliminary No growth in 4 days 06/01/18 14:52 Blood - Peripheral Anaerobic Blood Culture - Preliminary No growth in 4 days 05/31/18 13:00 Blood - Peripheral Aerobic Blood Culture - Final No growth in 5 days 05/31/18 13:00 Blood - Peripheral Anaerobic Blood Culture - Final No growth in 5 days 05/31/18 13:00 Blood - Line Aerobic Blood Culture - Final No growth in 5 days 05/31/18 13:00 Blood - Line Anaerobic Blood Culture - Final No growth in 5 days 05/29/18 12:17 Other - Final 05/29/18 12:23 Blood - Peripheral Aerobic Blood Culture - Preliminary pleomorphic gram positive rods 05/29/18 12:23 Blood - Peripheral Anaerobic Blood Culture - Preliminary pleomorphic gram positive rods 05/29/18 12:17 Blood - Peripheral Aerobic Blood Culture - Preliminary pleomorphic gram positive rods 05/29/18 12:17 Blood - Peripheral Anaerobic Blood Culture - Preliminary pleomorphic gram positive rods Lab - Hematology Results 06/04/18 05:24 WBC 3.1 L RBC 3.37 L Hgb 10.8 L Hct 30.2 L MCV 89.7 MCH 32.0 MCHC 35.7 RDW 13.4 Plt Count 120 L MPV 7.9 Neut % (Auto) 64.6 Lymph % (Auto) 17.6 Boundary % (Auto) 13.8 H Eos % (Auto) 2.2 Baso % (Auto) 1.8 Neut # (Auto) 2.0 Lymph # (Auto) 0.5 L Boundary # (Auto) 0.4 Eos # (Auto) 0.1 Baso # (Auto) 0.1 WBC Differential . Differential Comment Auto diff final Lab - Chemistry Results 06/04/18 05:24 Sodium 138 Potassium 3.4 L Chloride 105 Carbon Dioxide 26.3 Anion Gap 7 BUN 7 Creatinine 0.66 Estimated GFR Greater than 89 Random Glucose 96 Calcium 8.5 Magnesium 2.0 Imaging: ITS Impressions Head CTA 05/26/18 00:00 CONCLUSION: 1. See the MRI of the brain reported separately. 2. Unremarkable CTA. . . Head MRI 05/26/18 00:00 CONCLUSION: 1. Redemonstration of a large right frontoparietal mid to high convexity intraparenchymal hematoma measuring up to 5.2 cm with prominent surrounding vasogenic edema resulting in 4 mm right to left subfalcine shift. 2. Blood products extend to the ventricles with stable borderline ventricle size. 3. Redemonstration of 8 mm intraparenchymal hematoma in the left parietal high convexities without significant mass effect at this time. 4. No definitive abnormal enhancing mass is demonstrated. Extent of hemorrhage and associated abnormality can obscure a more subtle mass. Neck CTA 05/26/18 00:00 CONCLUSION: 1. Patent carotid arteries and vertebral arteries. Abdomen X-Ray 05/27/18 09:54 CONCLUSION: Dobbhoff feeding tube coiled in the stomach. Head CT 05/27/18 12:31 CONCLUSION: 1. 4.6 cm right frontal hemorrhage and 8mm left parietal hemorrhage are relatively stable. Tiny new focus of hemorrhage near the vertex on the left and slight increase in hemorrhage in the lateral ventricles since May 25. Fourth ventricular hemorrhage has decreased. Ventricular size is stable. . . Venous Doppler Study 05/29/18 00:00 CONCLUSION: 1. Occlusive DVT of the left common femoral vein and superficial femoral vein diffusely. 2. No evidence of DVT in the right lower extremity. Chest X-Ray 05/31/18 06:00 CONCLUSION: Cardiomegaly with interstitial densities likely interstitial edema. Abdomen/Pelvis CT 06/02/18 00:00 CONCLUSION: 1. Small pleural effusions and bibasilar densities likely atelectasis. 2. Right renal low-density likely cyst. 3. Induration/stranding in the presacral fat of uncertain etiology but could be related to previous radiation exposure or other inflammatory abnormality. 4. Varices in the groin bilaterally slightly greater on the left. No abscess seen. Argueta Line Insertion 06/04/18 00:00 CONCLUSION: 1. Uncomplicated Argueta catheter placement as above. IVC Filter Placement X-Ray 06/04/18 00:00 CONCLUSION: 1. Uncomplicated inferior vena cava filter placement as above. This is a retrievable filter. This can be retrieved up to one year from today's date. Physical Exam: GENERAL: awake and alert, not in respiratory distress. He is following commands, speech is clear SKIN: Warm and dry. No generalized rash, no ecchymoses and no evidence of embolic lesions. HEAD: Atraumatic. Normocephalic. No temporal wasting, or tenderness. EYES: [place] conjunctiva. No petechia or hemorrhage. Pupils equal, round and reactive to light. Extraocular movements full and intact. No scleral icterus. No injection or drainage. EARS, NOSE AND THROAT: Mucous membranes pink and moist. No oral lesions noted. No exudate. No oral thrush. NECK: Trachea midline. Supple and not tender, no meningeal signs CARDIOVASCULAR: Regular rate and rhythm. No murmurs, rubs or gallops heard RESPIRATORY: Clear to auscultation. Breath sounds equal bilaterally. No rales , wheezing or rhonchi ABDOMEN: Soft, nondistended, mild tenderness in L groin. Bowel sounds present and normoactive. No guarding. No rebound. No organomegaly. EXTREMITIES: No clubbing, cyanosis, or edema. No joint effusion, has good ROM. No calf tenderness. Well perfused and warm. NEUROLOGICAL: Awake and alert. Cranial nerves grossly intact. LUE weaker compared to the RLE PSYCHIATRIC: Flat affect, calm and cooperative. LINE: Argueta RIJ No evidence of infection Assessment and Plan - Plan Impression Sepsis, has (+) BC with pleomorphic GPR, source? concern is endocarditis - ?lactobacillus - TTE with abnormal MV - has been having on and off fevers since Mar 2018 - ?stroke due to IE Pain L groin, better Neutropenia, with increased monos in diff ICH DVT SLE Recommendation Follow repeat BC Continue Vanco Continue IV PCN OK to go to [place] I can adjust his ABx while he is at [place] once I have the results Explained plan to patient and - she had a lot of questions and I answered all questions to her satisfaction D/W RN D/W Dr Feli Laboy ([facility]) D/W CM
--- NOTE | 2018-06-05 14:39 | P.DS ---
DS: Providers Date of admission: 05/25/18 05:57 Primary care physician: No Primary Care Physician Consults: 05/25/18 07:02 Consult to Neurosurgery Stat Consulting Provider: Richard Krause For STAT consult, spoke directly to:: DR. KRAUSE Preferred Potato Chip Fryer:: Richard Krause Patient known to:: Richard Krause Reason for Consultation: Right frontal and IVH Notified:: Physician Spoke with:: Date Notified:: 05/25/18 Time Notified:: 07:24 Ordering Provider: MARY 05/31/18 09:37 Consult to Hematology Routine Consulting Provider: Rajan Melton Reason for Consultation: Occlusive DVT of the left common femoral vein and ICH Notified:: Office Spoke with:: Salud Date Notified:: 05/31/18 Time Notified:: 10:37 Ordering Provider: ED Consult to Infectious Diseases Routine Consulting Provider: Juli Sarah Reason for Consultation: Bacteriemia Notified:: Service Spoke with:: Kamille Date Notified:: 05/31/18 Time Notified:: 11:03 Ordering Provider: ED 05/31/18 21:07 Consult to Hospitalist Routine Consulting Provider: Hunter Carey Reason for Consultation: AMS Notified:: Service Spoke with:: Kamille Date Notified:: 05/31/18 Time Notified:: 11:03 Comments:: waiting on assignment - ML Ordering Provider: ED 06/01/18 05:15 Consult to Cardiology Routine Consulting Provider: Moose Singer Does the patient have a Database Report Writer who follows them?: No Preferred Brass Cleaner:: Textile Colorist Formulator Physician Reason for Consultation: eval for ARMOND Notified:: Service Spoke with:: Candy Date Notified:: 06/01/18 Time Notified:: 05:25 Ordering Provider: MICHELLE 06/04/18 08:00 Consult to Radiology Routine Brief History from admission: Patient is a 57-year-old male with past medical history significant for hypertension, chronic Eliquis use for DVT, who presented to [facility] with 3-day history of generalized weakness altered mental status and left -sided weakness. Patient is somnolent and slightly confused cannot give detailed history. Further workup in the [place] ED included CT head which showed that patient had a 5.5 x 4.4 cm right frontal intraparenchymal hematoma with intraventricular extension into the right frontal horn. There was blood in the lateral third and fourth ventricle with mass-effect on the right frontal lobe, 5 mm midline shift to the left. Additional 9 x 10 mm intraparenchymal hematoma in the left posterior frontal cortex. Neurosurgery at [facility] was contacted and Dr. Krause accepted the patient. Patient was transferred to [facility] where I evaluated him. Lab work at [facility] showed PTT 69.5, PT 14.8, INR 1.31. Patient takes Eliquis for DVT On my evaluation patient is lying on the bed slightly somnolent. But wakes up easily, he is AOx2. He has 4 out of 5 power on the left upper and lower extremity, has left facial droop. Otherwise patient is oriented to person and time. Stat neurosurgery consult ordered and I reviewed the films with Dr. Krause. I have also ordered 2500 unit of K Centra to reverse apixaban (per patient last dose was yesterday afternoon which is approximately 18 hours ago). Follow coags. CT of the head follow-up at 8 AM. Patient is very critical, at risk of acute neuro decompensation. Further recommendation for any surgical intervention versus medical management based on repeat imaging DS: Summary 57-year-old male admitted secondary to intracranial bleed Large right frontal intraparenchymal hematoma with intraventricular extension Mass-effect on the right frontal lobe, 5 mm midline shift to the left. Encephalopathy Encephalopathy is improving Continue Keppra Continue PT Continue OT Continue speech therapy Neurosurgery has cleared patient for discharge Fever Gram-positive bacteremia (pleomorphic gram-positive rods) Sepsis History of DVT Hx SLE Previous Eliquis now discontinued due to intracranial bleed Avoid blood thinners IVC Filter has been placed Continue vancomycin and Penicillin G, ID to determine stop date based on cultures Follow cultures ID following Argueta Line for IV antibiotics, will remain in at discharge (no need for pheripheral line) Time Spent with Patient Total time spent providing and/or coordinating discharge services: Less than 30 minutes Quality: VTE Deep Vein Thrombosis/Pulmonary Embolism Present on Admission: No Results Procedures completed during hospitalization: ARMOND Labs on day of discharge: Preliminary micro results at discharge 06/01/18 14:52 Aerobic Blood Culture - Preliminary Blood - Peripheral No growth in 4 days Anaerobic Blood Culture - Preliminary No growth in 4 days 05/29/18 12:23 Aerobic Blood Culture - Preliminary Blood - Peripheral pleomorphic gram positive rods Anaerobic Blood Culture - Preliminary pleomorphic gram positive rods 05/29/18 12:17 Aerobic Blood Culture - Preliminary Blood - Peripheral pleomorphic gram positive rods Anaerobic Blood Culture - Preliminary pleomorphic gram positive rods Impressions ITS Impressions Head CTA 05/26/18 00:00 CONCLUSION: 1. See the MRI of the brain reported separately. 2. Unremarkable CTA. . . Head MRI 05/26/18 00:00 CONCLUSION: 1. Redemonstration of a large right frontoparietal mid to high convexity intraparenchymal hematoma measuring up to 5.2 cm with prominent surrounding vasogenic edema resulting in 4 mm right to left subfalcine shift. 2. Blood products extend to the ventricles with stable borderline ventricle size. 3. Redemonstration of 8 mm intraparenchymal hematoma in the left parietal high convexities without significant mass effect at this time. 4. No definitive abnormal enhancing mass is demonstrated. Extent of hemorrhage and associated abnormality can obscure a more subtle mass. Neck CTA 05/26/18 00:00 CONCLUSION: 1. Patent carotid arteries and vertebral arteries. Abdomen X-Ray 05/27/18 09:54 CONCLUSION: Dobbhoff feeding tube coiled in the stomach. Head CT 05/27/18 12:31 CONCLUSION: 1. 4.6 cm right frontal hemorrhage and 8mm left parietal hemorrhage are relatively stable. Tiny new focus of hemorrhage near the vertex on the left and slight increase in hemorrhage in the lateral ventricles since May 25. Fourth ventricular hemorrhage has decreased. Ventricular size is stable. . . Venous Doppler Study 05/29/18 00:00 CONCLUSION: 1. Occlusive DVT of the left common femoral vein and superficial femoral vein diffusely. 2. No evidence of DVT in the right lower extremity. Chest X-Ray 05/31/18 06:00 CONCLUSION: Cardiomegaly with interstitial densities likely interstitial edema. Abdomen/Pelvis CT 06/02/18 00:00 CONCLUSION: 1. Small pleural effusions and bibasilar densities likely atelectasis. 2. Right renal low-density likely cyst. 3. Induration/stranding in the presacral fat of uncertain etiology but could be related to previous radiation exposure or other inflammatory abnormality. 4. Varices in the groin bilaterally slightly greater on the left. No abscess seen. Argueta Line Insertion 06/04/18 00:00 CONCLUSION: 1. Uncomplicated Argueta catheter placement as above. IVC Filter Placement X-Ray 06/04/18 00:00 CONCLUSION: 1. Uncomplicated inferior vena cava filter placement as above. This is a retrievable filter. This can be retrieved up to one year from today's date. Discharge Plan Discharge Disposition Patient Disposition: [facility] Rehab Inpatient Discharge Condition Condition: Stable Discharge Details Anticipated Discharge Date: 06/05/18 Physicians Team Primary Care Provider: Primary Care Jeanette Ndiaye Attending Provider: Don Laboy Other Providers: Richard Krause ; Rajan Melton ; Juli Sarah ; Moose Singer Rxs /Orders / Referrals /Forms Prescriptions: New vancomycin 1,000 mg recon soln 1,000 mg IV Q8H Qty: 100 RF: 0 melatonin 5 mg Tablet 5 mg PO HS PRN (Reason: Sleep) Qty: 30 RF: 0 levetiracetam [Keppra] 500 mg Tablet 500 mg PO BID Qty: 60 RF: 0 magnesium hydroxide [Milk of Magnesia] 400 mg/5 mL Suspension 30 ml PO Q12H PRN (Reason: Mild Constipation) Qty: 300 RF: 0 penicillin G pot in dextrose 3 million unit/50 mL piggyback 3 mmu IV.SIG Q4H 28 Days Qty: 8400 RF: 0 Continue pantoprazole 40 mg Tablet,Delayed Release (Dr/Ec) 1 tab PO DAILY RF: 0 Discontinued apixaban [Eliquis] 5 mg Tablet 1 tab PO BID RF: 0 hydroxychloroquine 200 mg Tablet 200 mg PO DAILY RF: 0 Referrals: Primary Care Jeanette Ndiaye [Primary Care Provider] - See Instructions Discharge Interventions Interventions: Discharge Planning - Case Management Last Done: 05/31/18 14:30
[2018-06-05] MEDS ORDERED: Pharmacy Ordered Lab Info OTHER ONE ×2 (18:45)
[2018-06-05] MEDS: Melatonin 5 MG Tablet PO PRN (23:56)
[2018-06-06] MEDS: PENICILLIN POTASSIUM IV.SIG SCH ×3 (00:30→08:59)
[2018-06-06] MEDS: SODIUM CHLOR 0.9% IV.SIG SCH ×3 (00:30→08:59)
[2018-06-06] MEDS ORDERED: Pharmacy Ordered Lab Info OTHER ONE (02:45)
[2018-06-06] MEDS: Vancomycin Inj 1,000 MG in Sodium Chlor 0.9% Inj 250 ML IV.SIG SCH ×2 (03:35→10:16)
[2018-06-06 07:06] LABS: Glomerular Filtration Rate Greater Than 89 mL/min (>89)
[2018-06-06 07:55] VITALS: BP 144/84; PULSE 77; RESP 16; TEMP 97.9; O2SAT 99
[2018-06-06] MEDS: Heparin Central Flush 100 UNIT/ML 5 ML Vial IV.FLUSH SCH (09:00)
[2018-06-06] MEDS: levETIRAcetam 500 MG Tablet PO SCH (09:00)
[2018-06-06] MEDS: Senna/Docusate Sodium 8.6/50 MG Tablet PO SCH (09:00)
--- NOTE | 2018-06-06 10:51 | P.DS ---
DS: Providers Date of admission: 05/25/18 05:57 Primary care physician: No Primary Care Physician Consults: 05/25/18 07:02 Consult to Neurosurgery Stat Consulting Provider: Richard Krause For STAT consult, spoke directly to:: DR. KRAUSE Preferred Corporate Events Director:: Richard Krause Patient known to:: Richard Krause Reason for Consultation: Right frontal and IVH Notified:: Physician Spoke with:: Date Notified:: 05/25/18 Time Notified:: 07:24 Ordering Provider: MARY 05/31/18 09:37 Consult to Hematology Routine Consulting Provider: Rajan Melton Reason for Consultation: Occlusive DVT of the left common femoral vein and ICH Notified:: Office Spoke with:: Salud Date Notified:: 05/31/18 Time Notified:: 10:37 Ordering Provider: ED Consult to Infectious Diseases Routine Consulting Provider: Juli Sarah Reason for Consultation: Bacteriemia Notified:: Service Spoke with:: Kamille Date Notified:: 05/31/18 Time Notified:: 11:03 Ordering Provider: ED 05/31/18 21:07 Consult to Hospitalist Routine Consulting Provider: Hunter Carey Reason for Consultation: AMS Notified:: Service Spoke with:: Kamille Date Notified:: 05/31/18 Time Notified:: 11:03 Comments:: waiting on assignment - ML Ordering Provider: ED 06/01/18 05:15 Consult to Cardiology Routine Consulting Provider: Moose Singer Does the patient have a Lithographic Artist who follows them?: No Preferred Gas Attendant:: Physician Allergist Immunologist Physician Reason for Consultation: eval for ARMOND Notified:: Service Spoke with:: Candy Date Notified:: 06/01/18 Time Notified:: 05:25 Ordering Provider: MICHELLE 06/04/18 08:00 Consult to Radiology Routine DS: Summary 57-year-old male admitted secondary to intracranial bleed Large right frontal intraparenchymal hematoma with intraventricular extension Mass-effect on the right frontal lobe, 5 mm midline shift to the left. Encephalopathy Encephalopathy is improving Continue Keppra Continue PT Continue OT Continue speech therapy Neurosurgery has cleared patient for discharge Fever Gram-positive bacteremia (pleomorphic gram-positive rods) Sepsis History of DVT Hx SLE Previous Eliquis now discontinued due to intracranial bleed Avoid blood thinners IVC Filter has been placed Continue vancomycin and Penicillin G, ID to determine stop date based on cultures Follow cultures ID following Argueta Line for IV antibiotics, will remain in at discharge (no need for pheripheral line) Time Spent with Patient Total time spent providing and/or coordinating discharge services: Greater than 30 minutes Quality: VTE Deep Vein Thrombosis/Pulmonary Embolism Present on Admission: No Results Labs on day of discharge: Labs from last 24 hours 06/06/18 06/06/18 06/05/18 06:18 02:45 18:40 Creatinine 0.75 Estimated GFR Greater than 89 Vancomycin Trough 18.7 H 24.5 H Preliminary micro results at discharge 06/01/18 14:52 Aerobic Blood Culture - Preliminary Blood - Peripheral No growth in 4 days Anaerobic Blood Culture - Preliminary No growth in 4 days 05/29/18 12:23 Aerobic Blood Culture - Preliminary Blood - Peripheral pleomorphic gram positive rods Anaerobic Blood Culture - Preliminary pleomorphic gram positive rods 05/29/18 12:17 Aerobic Blood Culture - Preliminary Blood - Peripheral pleomorphic gram positive rods Anaerobic Blood Culture - Preliminary pleomorphic gram positive rods Impressions ITS Impressions Head CTA 05/26/18 00:00 CONCLUSION: 1. See the MRI of the brain reported separately. 2. Unremarkable CTA. . . Head MRI 05/26/18 00:00 CONCLUSION: 1. Redemonstration of a large right frontoparietal mid to high convexity intraparenchymal hematoma measuring up to 5.2 cm with prominent surrounding vasogenic edema resulting in 4 mm right to left subfalcine shift. 2. Blood products extend to the ventricles with stable borderline ventricle size. 3. Redemonstration of 8 mm intraparenchymal hematoma in the left parietal high convexities without significant mass effect at this time. 4. No definitive abnormal enhancing mass is demonstrated. Extent of hemorrhage and associated abnormality can obscure a more subtle mass. Neck CTA 05/26/18 00:00 CONCLUSION: 1. Patent carotid arteries and vertebral arteries. Abdomen X-Ray 05/27/18 09:54 CONCLUSION: Dobbhoff feeding tube coiled in the stomach. Head CT 05/27/18 12:31 CONCLUSION: 1. 4.6 cm right frontal hemorrhage and 8mm left parietal hemorrhage are relatively stable. Tiny new focus of hemorrhage near the vertex on the left and slight increase in hemorrhage in the lateral ventricles since May 25. Fourth ventricular hemorrhage has decreased. Ventricular size is stable. . . Venous Doppler Study 05/29/18 00:00 CONCLUSION: 1. Occlusive DVT of the left common femoral vein and superficial femoral vein diffusely. 2. No evidence of DVT in the right lower extremity. Chest X-Ray 05/31/18 06:00 CONCLUSION: Cardiomegaly with interstitial densities likely interstitial edema. Abdomen/Pelvis CT 06/02/18 00:00 CONCLUSION: 1. Small pleural effusions and bibasilar densities likely atelectasis. 2. Right renal low-density likely cyst. 3. Induration/stranding in the presacral fat of uncertain etiology but could be related to previous radiation exposure or other inflammatory abnormality. 4. Varices in the groin bilaterally slightly greater on the left. No abscess seen. Argueta Line Insertion 06/04/18 00:00 CONCLUSION: 1. Uncomplicated Argueta catheter placement as above. IVC Filter Placement X-Ray 06/04/18 00:00 CONCLUSION: 1. Uncomplicated inferior vena cava filter placement as above. This is a retrievable filter. This can be retrieved up to one year from today's date. Discharge Plan Discharge Disposition Patient Disposition: 62 Rehab Inpatient Discharge Condition Condition: Stable Discharge Order Discharge Orders: Discharge Order (Routine); Ordered 06/06/18 Ordered By: Don Laboy Discharge Details Anticipated Discharge Date: 06/06/18 Physicians Team Primary Care Provider: Primary Care Senthil,Jeanette Attending Provider: Don Laboy Other Providers: Richard Krause ; Rajan Melton ; Juli Sarah ; Moose Singer Rxs /Orders / Referrals /Forms Prescriptions: New vancomycin 1,000 mg recon soln 1,000 mg IV Q8H Qty: 100 RF: 0 melatonin 5 mg Tablet 5 mg PO HS PRN (Reason: Sleep) Qty: 30 RF: 0 levetiracetam [Keppra] 500 mg Tablet 500 mg PO BID Qty: 60 RF: 0 magnesium hydroxide [Milk of Magnesia] 400 mg/5 mL Suspension 30 ml PO Q12H PRN (Reason: Mild Constipation) Qty: 300 RF: 0 penicillin G pot in dextrose 3 million unit/50 mL piggyback 3 mmu IV.SIG Q4H 28 Days Qty: 8400 RF: 0 Continue pantoprazole 40 mg Tablet,Delayed Release (Dr/Ec) 1 tab PO DAILY RF: 0 Discontinued apixaban [Eliquis] 5 mg Tablet 1 tab PO BID RF: 0 hydroxychloroquine 200 mg Tablet 200 mg PO DAILY RF: 0 Referrals: Primary Care Jeanette Ndiaye [Primary Care Provider] - See Instructions Discharge Information Discharge Date/Time: 06/06/18 10:38
== END 2018-06-06 10:38 | DRG 853 ==
LOC: N03 05:57 → N05 06-04 20:05
PROVIDERS: ADMIT Hospitalist; ATTEND Hospitalist
DX: D68.9 Coagulation defect, unspecified; Z79.899 Other long term (current) drug therapy; K59.00 Constipation, unspecified; G93.6 Cerebral edema; I61.1 Nontraumatic intracerebral hemorrhage in hemisphere, cortical; R40.2410 Glasgow coma scale score 13-15, unspecified time; I82.502 Chronic embolism and thrombosis of unspecified deep veins of left lower extremity; I34.0 Nonrheumatic mitral (valve) insufficiency; R29.810 Facial weakness; Z79.01 Long term (current) use of anticoagulants; I61.5 Nontraumatic intracerebral hemorrhage, intraventricular; M32.9 Systemic lupus erythematosus, unspecified; I73.00 Raynaud's syndrome without gangrene; B96.89 Other specified bacterial agents as the cause of diseases classified elsewhere; G93.40 Encephalopathy, unspecified; D70.9 Neutropenia, unspecified; R10.32 Left lower quadrant pain; I10 Essential (primary) hypertension; Z86.711 Personal history of pulmonary embolism; Z87.891 Personal history of nicotine dependence; K21.9 Gastro-esophageal reflux disease without esophagitis; G81.94 Hemiplegia, unspecified affecting left nondominant side; I82.412 Acute embolism and thrombosis of left femoral vein; A41.9 Sepsis, unspecified organism
CPT/HCPCS: 36558; 36600; 37191; 70450; 70496; 70498; 70553; 71010; 71045; 74000; 74018; 74177; 75998; 76937; 77001; 80048; 80053; 80202; 81001; 82565; 82805; 83735; 83930; 84295; 85025; 85027; 85384; 85610; 85730; 87040; 87186; 87205; 87641; 92526; 92610; 93005; 93306; 93320; 93325; 93970; 95819; 97110; 97116; 97163; 97166; 97530; 97535; 99145; 99152; 99153; A4646; A9585; C1751; C1769; C1788; C1880; C8925; C9113; C9132; C9238; G0195; J0131; J0360; J0696; J1642; J1644; J1953; J2150; J2250; J2540; J3010; J3370; J3480; J3590; J7030; J7050; Q9950; Q9963; Q9965; Q9967